=== PATIENT | female | born 1970 | race Caucasian/White ===

== ENCOUNTER 2017-03-25 22:40 | Emergency (ER) | payer MEDICAID, SELFPAY ==
[2017-03-25 22:42] VITALS: BP 135/81; PULSE 65; RESP 18; TEMP 37.3; O2SAT 98; BMI 20.9
--- NOTE | 2017-03-25 23:53 | HMH.EDWNDL ---
ED Disposition Clinical Impression: Laceration Disposition: Home, Self-Care Condition on Discharge: Good Instructions: DI for Laceration Repair Additional Instructions: suture out 8 days and recheck if needed - Critical Care Critical Care Time: No Attestation: On 03/25/17, the high probability of a clinically significant, sudden or life threatening deterioration of the following system(s) required my full and direct attention, intervention and personal management. The time I documented below is in addition to time spent performing reported procedures but includes the following listed in this critical care notation. Medical Decision Making - Medical Records Medical records reviewed: Yes: I reviewed the patient's medical records. Vital Signs: 03/25/17 22:42 Temperature 99.1 F Temperature Source Oral Pulse Rate [Right Radial] 65 Respiratory Rate 18 Blood Pressure [Right Arm] 135/81 Blood Pressure Mean [Right Arm] 99 Blood Pressure Source [Right Arm] Automatic Cuff Blood Pressure Position [Right Arm] Sitting 02 Sat by Pulse Oximetry 98 Oxygen Delivery Method Room Air Orders (Tests/Meds): ED MEDICATIONS Discontinued Medications Generic Name Dose Route Start Last Admin Trade Name Freq PRN Reason Stop Dose Admin Acetaminophen 650 mg 03/25/17 23:40 03/25/17 23:50 Acetaminophen 325mg Tab PO 03/25/17 23:41 650 mg ONCE ONE Administration Tetanus/Reduced Diphtheria/Acell Pertussis 0.5 ml 03/25/17 23:07 03/25/17 23:37 Adacel Tdap 0.5ml Syringe IM 03/25/17 23:08 0.5 ml .ONCE ONE Administration - Dariel Inquiry Pt receiving controlled substance: No Wound/Laceration HPI - General Chief Complaint: Wound/Laceration Stated Complaint: chin laceration Time Seen by Provider: 03/25/17 23:53 Mode of Arrival: Ambulatory Source of Information: Patient, Medical Record Limitations: No Limitations Description of Symptoms (Recalled from ER Triage Doc. by RN): she was at home and tripped, chin lac from hard wood floor, no loss of consciousness - History of Present Illness HPI narrative: fall with chin laceration Onset (ago): hour(s) Location: face Place: home Patient tetanus UTD: No Context: accidental - Related Data Home Medications Medication Instructions Recorded Confirmed No Known Home Medications [No 03/25/17 03/25/17 Known Home Medications] Allergies Allergy/AdvReac Type Severity Reaction Status Date / Time No Known Allergies Allergy Unverified 02/03/17 14:45 [facility] History I have reviewed the patient's past medical history: Yes 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: Denies:: Cancer, Diabetes Mellitus Type 1, Diabetes Mellitus Type 2, MRSA Amputation: No Fractures: Yes (left elbow, ribs, right hand) - *Social History Smoking Status: Current every day smoker Tobacco Type: cigarettes Alcohol Intake: current - Psychiatric History Expresses thoughts of harming self/others: None Suicide Plan Description: No Plan ROS Obtained: Yes All systems reviewed & no additional complaints - Constitutional Constitutional: Denies fever(s) - Eyes Eyes: Denies change in vision - ENT Ears, Nose, Mouth, and Throat: Denies sore throat - Cardiovascular Cardiovascular: Denies chest pain at rest - Respiratory Respiratory: No chest congestion - Gastrointestinal Gastrointestingal: Denies: abdominal pain - Musculoskeletal Musculoskeletal: Denies joint pain, Denies joint swelling - Integumentary/Breasts Skin/Breast: Reports as per HPI, Denies rash - Neurologic Neurologic: Denies tingling/numbness/burning sensations Physical Exam - General General appearance: alert, in no apparent distress - Head Head exam: normocephalic - Eye Eye exam: Present: PERRL, EOMI - ENT ENT exam: Present: mucous membranes moist - Neck Neck exam: Present: trachea midline - Respiratory Respiratory exam: Present: respiratory distress - Cardiovascular Cardiovascular
--- NOTE | 2017-03-25 23:56 | ED_ITS ---
ED Disposition Clinical Impression: Laceration Disposition: Home, Self-Care Condition on Discharge: Good Instructions: DI for Laceration Repair Additional Instructions: suture out 8 days and recheck if needed - Critical Care Critical Care Time: No Attestation: On 03/25/17, the high probability of a clinically significant, sudden or life threatening deterioration of the following system(s) required my full and direct attention, intervention and personal management. The time I documented below is in addition to time spent performing reported procedures but includes the following listed in this critical care notation. Medical Decision Making - Medical Records Medical records reviewed: Yes: I reviewed the patient's medical records. Vital Signs: 03/25/17 22:42 Temperature 99.1 F Temperature Source Oral Pulse Rate [Right Radial] 65 Respiratory Rate 18 Blood Pressure [Right Arm] 135/81 Blood Pressure Mean [Right Arm] 99 Blood Pressure Source [Right Arm] Automatic Cuff Blood Pressure Position [Right Arm] Sitting 02 Sat by Pulse Oximetry 98 Oxygen Delivery Method Room Air Orders (Tests/Meds): ED MEDICATIONS Discontinued Medications Generic Name Dose Route Start Last Admin Trade Name Freq PRN Reason Stop Dose Admin Acetaminophen 650 mg 03/25/17 23:40 03/25/17 23:50 Acetaminophen 325mg Tab PO 03/25/17 23:41 650 mg ONCE ONE Administration Tetanus/Reduced Diphtheria/Acell Pertussis 0.5 ml 03/25/17 23:07 03/25/17 23: 37 Adacel Tdap 0.5ml Syringe IM 03/25/17 23:08 0.5 ml .ONCE ONE Administration - Dariel Inquiry Pt receiving controlled substance: No Wound/Laceration HPI - General Chief Complaint: Wound/Laceration Stated Complaint: chin laceration Time Seen by Provider: 03/25/17 23:53 Mode of Arrival: Ambulatory Source of Information: Patient, Medical Record Limitations: No Limitations Description of Symptoms (Recalled from ER Triage Doc. by RN): she was at home and tripped, chin lac from hard wood floor, no loss of consciousness - History of Present Illness HPI narrative: fall with chin laceration Onset (ago): hour(s) Location: face Place: home Patient tetanus UTD: No Context: accidental - Related Data Home Medications Medication Instructions Recorded Confirmed No Known Home Medications [No 03/25/17 03/25/17 Known Home Medications] Allergies Allergy/AdvReac Type Severity Reaction Status Date / Time No Known Allergies Allergy Unverified 02/03/17 14:45 [facility] History I have reviewed the patient's past medical history: Yes 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: Denies:: Cancer, Diabetes Mellitus Type 1, Diabetes Mellitus Type 2, MRSA Amputation: No Fractures: Yes (left elbow, ribs, right hand) - *Social History Smoking Status: Current every day smoker Tobacco Type: cigarettes Alcohol Intake: current - Psychiatric History Expresses thoughts of harming self/others: None Suicide Plan Description: No Plan ROS Obtained: Yes All systems reviewed & no additional complaints - Constitutional Constitutional: Denies fever(s) - Eyes Eyes: Denies change in vision - ENT Ears, Nose, Mouth, and Throat: Denies sore throat - Cardiovascu
[2017-03-26 00:08] VITALS: BP 128/72; PULSE 85; RESP 18; TEMP 36.9; O2SAT 96
== END 2017-03-26 00:12 | disposition home or self-care (01) ==
PROVIDERS: Emergency Provider Emergency Medicine; Family Provider Internal Medicine Adolescent Medicine
DX: S01.81XA Laceration without foreign body of other part of head, initial encounter (principal); W01.0XXA Fall on same level from slipping, tripping and stumbling without subsequent striking against object, initial encounter; Y92.019 Unspecified place in single-family (private) house as the place of occurrence of the external cause; Z23 Encounter for immunization
CPT/HCPCS: 12011; 90471; 90715; 99291

== ENCOUNTER 2017-04-05 08:21 | Emergency (ER) | payer MEDICAID, SELFPAY ==
[2017-04-05 08:25] VITALS: BP 127/78; PULSE 69; RESP 18; TEMP 36.7; O2SAT 97; BMI 19.5
[2017-04-05 08:39] VITALS: BP 127/84; PULSE 69; RESP 18; TEMP 36.7; O2SAT 97
== END 2017-04-05 08:39 | disposition home or self-care (01) ==
PROVIDERS: Emergency Provider Emergency Medicine; Family Provider Internal Medicine Adolescent Medicine
DX: S02.81XD Fracture of other specified skull and facial bones, right side, subsequent encounter for fracture with routine healing (principal); Z48.02 Encounter for removal of sutures

== ENCOUNTER 2017-04-21 18:38 | Emergency (ER) | payer MEDICAID, SELFPAY ==
[2017-04-21 18:47] VITALS: BP 100/56; PULSE 78; RESP 16; TEMP 36.9; O2SAT 98; BMI 23.0
--- NOTE | 2017-04-21 18:54 | XR_ITS ---
XR hand LT min 3V HISTORY: Pain following injury ITS.REASON: INJURY TO LEFT PINKY AND RING FINGERS ORDERING PHYSICIAN: Saroj Sepulveda MD PATIENT AGE: 47 years COMPARISON: None FINDINGS: No fracture or dislocation. No lytic or blastic change. There is normal mineralization.. The joint spaces are well-preserved. No significant degenerative/arthritic changes. No erosive changes evident.. IMPRESSION: Negative, no acute finding
--- NOTE | 2017-04-21 19:03 | HMH.EDGENADL ---
ED Disposition Clinical Impression: Contusion Qualifiers: Encounter type: initial encounter Contusion area: hand Laterality: left Qualified Code(s): S60.222A - Contusion of left hand, initial encounter Disposition: Home, Self-Care Condition on Discharge: Good Instructions: DI for Contusion Additional Instructions: Please alternate Motrin with Tylenol for pain control, apply an ice pack to the affected area, follow-up with 1 of the orthopedic surgeons listed, Dr. Sage or Dr. Lemus, your earliest convenience. Referrals: Bhavesh Quezada MD [Primary Care Provider] - Jesu Streeter MD [Staff Physician] - Jaquan Sage MD [Staff Physician] - Time of Disposition: 19:04 - Critical Care Critical Care Time: No Attestation: On 04/21/17, the high probability of a clinically significant, sudden or life threatening deterioration of the following system(s) required my full and direct attention, intervention and personal management. The time I documented below is in addition to time spent performing reported procedures but includes the following listed in this critical care notation. Medical Decision Making - Medical Records Medical records reviewed: Yes: I reviewed the patient's medical records. Vital Signs: 04/21/17 18:47 04/21/17 19:21 Temperature 98.4 F 98.0 F Temperature Source Oral Oral Pulse Rate 80 Pulse Rate [Right Brachial] 78 Respiratory Rate 16 16 Blood Pressure 00/00 Blood Pressure [Right Arm] 100/56 Blood Pressure Mean [Right Arm] 70 Blood Pressure Source [Right Arm] Automatic Cuff Blood Pressure Position [Right Arm] Sitting 02 Sat by Pulse Oximetry 98 Oxygen Delivery Method Room Air Room Air Orders (Tests/Meds): ED MEDICATIONS Discontinued Medications Generic Name Dose Route Start Last Admin Trade Name Freq PRN Reason Stop Dose Admin Tramadol HCl 1 richard 04/21/17 19:09 04/21/17 19:20 Ultram Take Home Pack 50mg (10) PO 04/21/17 19:10 1 richard ONCE ONE Administration - Radiology Data #1 Image(s): Finger(s)/Thumb (left 5th finger) Image Reviewed: Yes I reviewed the patient's radiology results, Yes I reviewed the patient's radiology image, Yes I discussed the image results w/the radiologist, Yes I have reviewed radiologist's interpretation [place] [id number] [place] [address] XRay Report Signed Patient: Lilibeth Floyd MR#: [id number] : 1970 Acct:[id number] Age/Sex: 47 / F ADM Date: 04/21/17 Loc: ER Attending Dr: Ordering Physician: Saroj Sepulveda MD Date of Service: 04/21/17 Procedure(s): XR hand LT min 3V Accession Number(s): [id number] cc: Bhavesh Quezada MD; Bart Hussein MD~ XR hand LT min 3V HISTORY: Pain following injury ITS.REASON: INJURY TO LEFT PINKY AND RING FINGERS ORDERING PHYSICIAN: Saroj Sepulveda MD PATIENT AGE: 47 years COMPARISON: None FINDINGS: No fracture or dislocation. No lytic or blastic change. There is normal mineralization.. The joint spaces are well-preserved. No significant degenerative/arthritic changes. No erosive changes evident.. IMPRESSION: Negative, no acute finding Dictated By: Bart Hussein MD Signed By: <Electronically signed by Bart Hussein MD in [place]> 04/22/17722 DD/ 1 - Dariel Inquiry Pt receiving controlled substance: No - Reevaluation(s) Time: 19:00 Reevaluation #1: Instructed patient to alternate Motrin with Tylenol, for pain control, and apply ice packs to the affected area. General Adult HPI - General Chief complaint: PAIN Stated complaint: [id number] @1700 injured left little finger Mode of Arrival: Family Vehicle Limitations: No Limitations Description of Symptoms (Recalled from ER Triage Doc. by RN): C/O PAIN AND EDEMA TO LEFT PINKY AND RING FINGERS. F[place] 1730 - History of Present Illness HPI n
[2017-04-21 19:21] VITALS: BP 00/00; PULSE 80; RESP 16; TEMP 36.7; O2SAT 100
== END 2017-04-21 19:22 | disposition home or self-care (01) ==
PROVIDERS: Emergency Provider Emergency Medicine; Family Provider Internal Medicine Adolescent Medicine; PCP Internal Medicine Adolescent Medicine
DX: S63.617A Unspecified sprain of left little finger, initial encounter (principal); W09.1XXA Fall from playground swing, initial encounter; Y92.830 Public park as the place of occurrence of the external cause
CPT/HCPCS: 73130; 99282

== ENCOUNTER 2019-06-06 15:36 | Emergency (ER) | payer OTHER, SELFPAY ==
[2019-06-06 15:36] VITALS: BP 132/66; PULSE 90; RESP 22; O2SAT 99; BMI 24.5
[2019-06-06 16:06] LABS: Chloride 103 mmol/L (98-107); Sodium 145 mmol/L (136-145)
[2019-06-06 16:07] LABS: Potassium 3.7 mmoL/L (3.5-5.1)
[2019-06-06 16:09] LABS: Alanine Aminotransferase 16 U/L (12-78); Albumin/Globulin Ratio 1.4 (1.1-1.8); Alkaline Phosphatase 83 U/L (38-126); Anion Gap 18.7 mEq/L (5-15); Aspartate Amino Transferase 29 U/L (14-36); Basophils # 0.1 K/mm3 (0-0.2); Basophils % 1.3 % (0.1-2.0); Bilirubin,Total 0.6 mg/dl (0.2-1.3); Blood Urea Nitrogen 16 mg/dl (7-17); Calcium 11.1 mg/dl (8.4-10.2); Carbon Dioxide 27 mmol/L (22.0-30.0); Creatinine Clearance Estimated 75 mL/min (50-200); Eosinophils # 0.1 K/mm3 (0.0-0.4); Eosinophils % 1.3 % (0.1-12.0); Estimated Glomerular Filt Rate 59 ml/min (>60); GFR (African American) 72 ML/MIN (>60); Globulin 3.5 g/dL (1.3-3.2); Glucose 87 mg/dl (74-100); Hematocrit 45.1 % (37.0-47.0); Hemoglobin 14.9 g/dL (12.2-16.2); Lymphocytes # 3.5 K/mm3 (0.7-4.5); Lymphocytes % 44.7 % (10-50); Mean Corpuscular HGB Conc 33.1 g/dL (31.8-35.4); Mean Corpuscular Hemoglobin 29.5 pg (27.0-31.2); Mean Corpuscular Volume 89.3 fl (81-99); Mean Platelet Volume 9.6 fl (7.4-10.4); Monocytes # 0.5 K/mm3 (0.1-1.0); Monocytes % 6.2 % (1.7-9.3); Neutrophils # 3.6 K/mm3 (1.8-7.8); Neutrophils % 46.6 % (37.0-80.0); Platelet Count 238 K/mm3 (142-424); Red Blood Count 5.05 M/mm3 (4.20-5.40); Red Cell Distribution Width 14.5 % (11.5-17.5); Total Protein,Serum 8.5 g/dl (6.3-8.2); White Blood Count 7.8 K/mm3 (4.8-10.8)
[2019-06-06 16:41] VITALS: BP 119/78; PULSE 91; RESP 20; TEMP 36.9; O2SAT 99
--- NOTE | 2019-06-06 17:19 | XR_ITS ---
PROCEDURE: XR CHEST PORTABLE CLINICAL HISTORY: cough COMPARISON: CXR CHEST(2 VIEWS-NOT PORTABLE) from 04/16/2014 CXR CHEST(2 VIEWS-NOT PORTABLE) from 11/19/2016 FINDINGS: The cardiomediastinal silhouette and pulmonary vascularity are within normal limits. The lungs are clear without infiltrates, suspicious nodules, or pleural effusions. No acute bony abnormalities. IMPRESSION: No acute findings. Dictated by: Bart Hussein MD 06/06/2019 20:02 Electronically signed by Bart Hussein MD in [place] 06/06/2019 20:02
[2019-06-06 17:25] VITALS: BP 98/43; PULSE 71; RESP 10; O2SAT 98
--- NOTE | 2019-06-06 17:29 | HMH.EDGENADL ---
ED Disposition Clinical Impression: Panic attack, Hyperventilation, Mood disorder due to known physiological condition, unspecified Disposition: Home, Self-Care Condition on Discharge: Good Instructions: DI for Altered Mental Status Additional Instructions: Please follow-up with your psychiatric nurse practitioner tomorrow morning at 9 AM Prescriptions: Albuterol Sulfate [Albuterol HFA Inhaler] 2 puffs IH Q6HP PRN #1 inh PRN Reason: Shortness Of Breath Or Wheezing Transmission Status: Received by [facility] Referrals: Provider,Referral, [Primary Care Provider] - - Critical Care Critical Care Time: No Attestation: On 06/06/19, the high probability of a clinically significant, sudden or life threatening deterioration of the following system(s) required my full and direct attention, intervention and personal management. The time I documented below is in addition to time spent performing reported procedures but includes the following listed in this critical care notation. Medical Decision Making - Medical Records Medical records reviewed: Yes: I reviewed the patient's medical records. - Dariel Inquiry Pt receiving controlled substance: No Vital Signs: 06/06/19 15:36 06/06/19 16:41 06/06/19 17:25 Temperature 98.4 F Temperature Source Oral Pulse Rate Pulse Rate [Radial] 90 91 H 71 Respiratory Rate 22 20 10 L Blood Pressure Blood Pressure [Right Arm] 132/66 119/78 98/43 L Blood Pressure Mean [Right Arm] 88 91 61 Blood Pressure Source [Right Arm] Automatic Cuff Blood Pressure Position [Right Arm] Sitting Sitting 02 Sat by Pulse Oximetry 99 99 98 Oxygen Delivery Method Room Air Room Air 06/06/19 20:12 Temperature 98.4 F Temperature Source Pulse Rate 72 Pulse Rate [Radial] Respiratory Rate 14 Blood Pressure 112/54 L Blood Pressure [Right Arm] Blood Pressure Mean [Right Arm] Blood Pressure Source [Right Arm] Blood Pressure Position [Right Arm] 02 Sat by Pulse Oximetry Oxygen Delivery Method Room Air - Lab Data Lab results reviewed: Yes: I reviewed the patient's lab results. Lab Results 06/06/19 15:45: WBC 7.8, RBC 5.05, Hgb 14.9, Hct 45.1, MCV 89.3, MCH 29.5, MCHC 33.1, RDW 14.5, Plt Count 238, MPV 9.6, Neut % (Auto) 46.6, Lymph % (Auto) 44.7, Emanuel % (Auto) 6.2, Eos % (Auto) 1.3, Baso % (Auto) 1.3, Neut # (Auto) 3.6, Lymph # (Auto) 3.5, Emanuel # (Auto) 0.5, Eos # (Auto) 0.1, Baso # (Auto) 0.1 06/06/19 15:45: Sodium 145, Potassium 3.7, Chloride 103, Carbon Dioxide 27, Anion Gap 18.7 H, BUN 16, Creatinine 1.00, Estimated Creat Clear 75, Estimated GFR 59, Est GFR ( Amer) 72, Glucose 87, Calcium 11.1 H, Total Bilirubin 0.6, AST 29, ALT 16, Alkaline Phosphatase 83, Total Protein 8.5 H, Albumin 5.0, Globulin 3.5 H, Albumin/Globulin Ratio 1.4 06/06/19 15:45: Salicylates < 1.0 L, Acetaminophen < 10 L Result diagrams: 06/06/19 15:45 06/06/19 15:45 Orders (Tests/Meds): ED MEDICATIONS Discontinued Medications Generic Name Dose Route Start Last Admin Trade Name Freq PRN Reason Stop Dose Admin Haloperidol Lactate 5 mg 06/06/19 15:51 06/06/19 15:52 Haldol 5mg/Ml Vial IM 06/06/19 15:52 5 mg ONCE ONE Administration Lorazepam 2 mg 06/06/19 15:51 06/06/19 15:52 Ativan 2mg/Ml Vial IV 06/06/19 15:52 2 mg ONCE ONE Administration Sodium Chloride 10 ml 06/06/19 15:51 06/06/19 15:52 Sodium Chloride 0.9% 10ml Vial IV 07/06/19 15:50 10 ml NEEDED PRN Administration to Dilute Lorazepam inj Medical Decision Narrative: I spoke to the patient's psychiatric nurse practitioner and she is agreed to see the patient for medication adjustment tomorrow morning at 9 AM. General Adult HPI - General Chief complaint: Altered Mental Status Stated complaint: nerves Time Seen by Provider: 06/06/19 17:00 Mode of Arrival: Ambulatory Source of Information: Patient, Spouse, Relative, Medical Record Limitations: No Limitations Descripti
--- NOTE | 2019-06-06 17:37 | ECG_ITS ---
APPROVED REPORT Exam: Resting ECG HR:64 bpm ECG Measurements Heart Rate 64 AXES LA 136 P 40 QRSd 72 QRS 39 QT 426 T 28 QTc 439 <Conclusion> Normal sinus rhythm Normal ECG Electronically signed by : Gary Sotomayor, 06/07/2019 15:38:31
[2019-06-06 17:42] LABS: Acetaminophen < 10 ug/ml (10-30); Salicylate < 1.0 mg/dL (2.0-20.0)
[2019-06-06 20:12] VITALS: BP 112/54; PULSE 72; RESP 14; TEMP 36.9; O2SAT 96
== END 2019-06-06 20:16 | disposition home or self-care (01) ==
PROVIDERS: Emergency Provider Family Medicine
DX: F41.0 Panic disorder [episodic paroxysmal anxiety] (principal); F06.30 Mood disorder due to known physiological condition, unspecified; F12.10 Cannabis abuse, uncomplicated; F17.210 Nicotine dependence, cigarettes, uncomplicated; Z79.899 Other long term (current) drug therapy
CPT/HCPCS: 71045; 80053; 80329; 85025; 93005; 96372; 96374; 99284

== ENCOUNTER 2019-10-07 13:32 | Emergency (ER) | payer OTHER, SELFPAY ==
[2019-10-07 13:40] VITALS: BP 00/00; PULSE 0; RESP 0; TEMP -17.7; TEMP 0
== END 2019-10-07 13:41 | disposition left against medical advice (07) ==
LOC: UTC 13:37
PROVIDERS: Emergency Provider Nurse Practitioner
DX: Z53.21 Procedure and treatment not carried out due to patient leaving prior to being seen by health care provider (principal)

== ENCOUNTER 2019-10-08 06:54 | Emergency (ER) | payer OTHER, SELFPAY ==
[2019-10-08 06:56] VITALS: BP 127/68; PULSE 59; RESP 18; TEMP 36.8; O2SAT 98; BMI 27.3
--- NOTE | 2019-10-08 07:14 | XR_ITS ---
PROCEDURE: XR FINGER LT MIN 2V CLINICAL INDICATION: middle finger injury Posttraumatic pain COMPARISON: No exams were available for comparison FINDINGS: No fracture or dislocation. No lytic or blastic change. There is normal mineralization. The joint spaces are well-preserved. No significant degenerative/arthritic changes. No erosive changes evident. Other findings:None. IMPRESSION: No acute findings. Dictated by: Bart Hussein MD 10/08/2019 08:24 Bart Hussein MD in [place] 10/08/2019 08:24
[2019-10-08 07:32] VITALS: BP 124/77; PULSE 53; O2SAT 98
--- NOTE | 2019-10-08 08:03 | PC.NURSE ---
pt tAKEN TO XRAY
--- NOTE | 2019-10-08 08:03 | HMH.EDGENADL ---
ED Disposition Clinical Impression: Finger sprain Qualifiers: Encounter type: initial encounter Finger: middle finger Sprain of finger site: interphalangeal joint Laterality: left Qualified Code(s): S63.633A - Sprain of interphalangeal joint of left middle finger, initial encounter Contusion Qualifiers: Encounter type: initial encounter Contusion area: finger Finger: middle finger Damage to nail status: without damage Laterality: left Qualified Code(s): S60.032A - Contusion of left middle finger without damage to nail, initial encounter Disposition: Home, Self-Care Condition on Discharge: Good Instructions: Finger Sprain Referrals: PCP,No [Primary Care Provider] - Time of Disposition: 08:45 - Critical Care Critical Care Time: No Attestation: On 10/08/19, the high probability of a clinically significant, sudden or life threatening deterioration of the following system(s) required my full and direct attention, intervention and personal management. The time I documented below is in addition to time spent performing reported procedures but includes the following listed in this critical care notation. Medical Decision Making - Medical Records Medical records reviewed: Yes: I reviewed the patient's medical records. - Dariel Inquiry Pt receiving controlled substance: No Vital Signs: 10/08/19 06:56 10/08/19 07:32 10/08/19 08:53 Temperature 98.2 F 98.2 F Temperature Source Oral Pulse Rate 80 Pulse Rate [Right Radial] 59 L 53 L Respiratory Rate 18 17 Blood Pressure 122/85 Blood Pressure [Right Arm] 127/68 124/77 Blood Pressure Mean [Right Arm] 87 92 Blood Pressure Source [Right Arm] Automatic Cuff Automatic Cuff Blood Pressure Position [Right Arm] Sitting Sitting 02 Sat by Pulse Oximetry 98 98 Oxygen Delivery Method Room Air Room Air Orders (Tests/Meds): ED MEDICATIONS Discontinued Medications Generic Name Dose Route Start Last Admin Trade Name Freq PRN Reason Stop Dose Admin Tetanus/Reduced Diphtheria/Acell Pertussis 0.5 ml 10/08/19 08:04 10/08/19 08:27 Adacel Tdap 0.5ml Syringe IM 10/08/19 08:05 0.5 ml .ONCE ONE Administration Medical Decision Narrative: 49-year-old [id number] female presenting to the emergency department with a traumatic injury to the middle finger of the left hand. X-rays obtained. Tetanus updated. X-rays show no fracture or dislocation. Abrasions irrigated, no foreign body identified. No laceration requiring repair. Patient placed into a wilmer splint. Recommended to take Tylenol and ibuprofen for pain. Keep the wound clean and dry. May wash with hot soapy water today. Given return precautions for new or worsening symptoms, signs of infection. General Adult HPI - General Chief complaint: Wound/Laceration Stated complaint: AO 10/07/19 13:00 Injury left middle finger Time Seen by Provider: 10/08/19 08:04 Mode of Arrival: Ambulatory Source of Information: Patient Limitations: No Limitations Description of Symptoms (Recalled from ER Triage Doc. by RN): Smashed left middle finger hanging a door yesterday. Went to [facility] but was not seen stating she had to finish the job she was doing - History of Present Illness HPI narrative: 49-year-old [id number] female presenting to the emergency department with an injury to the middle finger of her left hand. 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 She had immediate pain over her middle phalanx. Had difficulty flexing and extending. This morning when she woke up she had increased swelling. Has not taken Tylenol or Motrin for pain. No pain in her hand. No pain in other fingers. She has a small abrasion over the dorsal aspect of her finger. No injuries to the nail. Does not know her most recent tetanus - Related Data Previous Rx's Medication Instructions Recorded Pantoprazole Sodium [Protonix 40mg 40 mg PO HS 3
--- NOTE | 2019-10-08 08:07 | PC.NURSE ---
PT BACK FROM XRAY
[2019-10-08 08:53] VITALS: BP 122/85; PULSE 80; RESP 17; TEMP 36.8; O2SAT 100
== END 2019-10-08 08:54 | disposition home or self-care (01) ==
PROVIDERS: Emergency Provider Emergency Medicine
DX: S63.633A Sprain of interphalangeal joint of left middle finger, initial encounter (principal); S60.032A Contusion of left middle finger without damage to nail, initial encounter; W23.0XXA Caught, crushed, jammed, or pinched between moving objects, initial encounter; Y92.89 Other specified places as the place of occurrence of the external cause; F17.210 Nicotine dependence, cigarettes, uncomplicated; Z23 Encounter for immunization
CPT/HCPCS: 29130; 73140; 90471; 90715; 99283

== ENCOUNTER 2020-03-13 12:10 | Emergency (ER) | payer OTHER, SELFPAY ==
[2020-03-13 12:11] VITALS: BP 156/107; PULSE 72; RESP 20; TEMP 37.1; O2SAT 99; BMI 23.0
[2020-03-13 12:50] VITALS: BP 168/92; PULSE 64; O2SAT 97
--- NOTE | 2020-03-13 13:00 | HMH.EDGENADL ---
ED Disposition Clinical Impression: Acute psychosis Disposition: Home, Self-Care Condition on Discharge: Good Instructions: DI for Psychosis Additional Instructions: Haldol as prescribed by Georgia Gregorio. Follow-up with Georgia Gregorio in her office on Thursday at 11:30 AM. Referrals: Bhavesh Diaz MD [Primary Care Provider] - - Critical Care Critical Care Time: No Attestation: On 03/13/20, the high probability of a clinically significant, sudden or life threatening deterioration of the following system(s) required my full and direct attention, intervention and personal management. The time I documented below is in addition to time spent performing reported procedures but includes the following listed in this critical care notation. Medical Decision Making - Dariel Inquiry Pt receiving controlled substance: Yes Dariel was queried for this patient: No Reason not queried -: Emergent pt cond-no time Risks and benefits of using a controlled substance: were not discussed with pt by me Vital Signs: 03/13/20 12:11 03/13/20 12:50 Temperature 98.7 F Temperature Source Oral Pulse Rate [Right Radial] 72 64 Respiratory Rate 20 Blood Pressure [Right Arm] 156/107 H 168/92 H Blood Pressure Mean [Right Arm] 123 117 Blood Pressure Source [Right Arm] Automatic Cuff Automatic Cuff Blood Pressure Position [Right Arm] Sitting Sitting 02 Sat by Pulse Oximetry 99 97 Oxygen Delivery Method Room Air Room Air Orders (Tests/Meds): ED MEDICATIONS Discontinued Medications Generic Name Dose Route Start Last Admin Trade Name Freq PRN Reason Stop Dose Admin Haloperidol Lactate 5 mg 03/13/20 12:16 03/13/20 12:25 Haloperidol Lactate 5 Mg/Ml Vial IM 03/13/20 12:17 5 mg ONCE ONE Administration Lorazepam 2 mg 03/13/20 12:16 03/13/20 12:25 Lorazepam 2mg/Ml Vial IM 03/13/20 12:17 2 mg ONCE ONE Administration - Reevaluation(s) Time: 13:13 Reevaluation #1: Patient states she is already feeling better after her injection. She is calm and cooperative and oriented. She has eaten in the emergency department. General Adult HPI - General Chief complaint: Anxiety Stated complaint: psychosis Time Seen by Provider: 03/13/20 13:00 Mode of Arrival: Ambulatory Limitations: No Limitations Description of Symptoms (Recalled from ER Triage Doc. by RN): Pt brought from YAKOV Winkler office r/t psychosis. YAKOV Winkler reports pt has been off of her medications, medication (Seroquel 200 mg qhs) started back 1 week ago. Pt was following up today r/t medication restart today. Pt brought to ED r/t pt is tearful, anxious, states she has a man's voice in her head telling her what to do. Pt states the man's voice is getting stronger and she feels like he is taking over. Pt denies SI. Per YAKOV Winkler pt had a similar episode approx 1 year ago r/t being off of her medications, states pt was seen in ED at that time, was medicated with haldol and ativan and was better and d/c'd home. - History of Present Illness HPI narrative: Brought over by Georgia Gregorio, psychiatric nurse practitioner, from her office where the patient had an outpatient appointment. She found her to be frankly psychotic. She has a history of same. The patient admits to stopping her medicines in May or June. She says she stopped them because she starts to feel better and does not feel like she needs them. She complains of auditory hallucinations, voices. She denies suicidal ideation. She agrees to restart her medications and agrees to outpatient follow-up, but has apparently declined inpatient treatment. Georgia Gregorio says that the last time this happened, the patient was in the emergency room and was treated with intramuscular Haldol and Ativan and got better and was discharged. She requests the same treatment today and says that she will come see the patient after treatment and prescribe her outpatient medications and arrange follow-up.
--- NOTE | 2020-03-13 15:02 | PC.NURSE ---
ESTEPHANIE HERE SEEING PT , SHE SAYS SHE IS GOOD TO GO HOME SHE IS GONNA SEND IN HALDOL 1MG BID AND SEROQUEL TO TAKE AT BEDTIME ONLY , COME SEE ESTEPHANIE ON THURSDAY @1130. PT IS COMING TO PICK HER UP
[2020-03-13 15:41] VITALS: BP 110/65; PULSE 78; RESP 16; TEMP 36.9; O2SAT 98
== END 2020-03-13 15:54 | disposition home or self-care (01) ==
PROVIDERS: Emergency Provider Emergency Medicine; PCP Family Medicine
DX: F23 Brief psychotic disorder (principal); F17.210 Nicotine dependence, cigarettes, uncomplicated
CPT/HCPCS: 96372; 99282

== ENCOUNTER 2020-06-22 10:00 | Outpatient (RCR) | payer OTHER, SELFPAY ==
--- NOTE | 2020-05-31 10:43 | HMH.PTOPEV ---
PT Outpatient Evaluation Rehab PT Outpatient Evaluation Start: 05/31/20 10:22 Freq: Status: Active Protocol: Document 05/31/20 10:22 MARCO (Rec: 05/31/20 10:43 MARCO [id number]) Electronically Signed By Foster Brooks, PT 05/31/20 10:22 Outpatient Therapy Subjective History Subjective History Pt reports multiple falls ' this winter', x3, with injury to head and neck . Pt reports most severe fall occurred on ice, slipped, whiplash inury to neck, reports L>R sided neck pain since Mar. Pt reports chronic neck pain, stiffness, intermittent ' cracking', referred pain into L SH blade area, and into L ear area. Chief Complaint Pain,Stiff Symptom Type Ache,Sharp,Dull,Shooting Symptoms Relieved By Rest/Positioning,Heat,Ice Symptoms Aggravated By Physical Activity,Twisting, Lifting Prior Functional Limitations Reaching,Lifting,Housework, Driving Current Functional Limitations Reaching,Lifting,Housework, Driving Symptom Description Constant but Variable Level of pain today (0-10) 4 Pain scale - at its best (0-10) 4 Pain scale - at its worst (0-10) 10 Cervical Eval Palpation Cervical Muscles L Cervical Paraspinal,L Suboccipital,R CT Junction,L CT Junction,R Upper Trapezius, L Upper Trapezius Cervical/Thoracic Palpation Findings Tenderness,Trigger Point, Muscle Guarding Posture Head/C-Spine Posture Sitting Position Flexed Head/C-Spine Posture Standing Position Flexed Flexibility Deficits Upper Trapezius Muscle Length (R) Moderate Tightness,(L) Moderate Tightness Levaetor Scapulae Muscle Length (R) Moderate Tightness,(L) Moderate Tightness Scalene Group Muscle Length (R) Moderate Tightness,(L) Moderate Tightness Passive Joint Mobility Cervical PIVM Dec: R OA L OA R AA L AA R C2/3 L C2/3 R C3/4 L C3/4 R C4/5 L C4/5
== END 2020-06-22 10:05 | disposition home or self-care (01) ==
LOC: PT 10:00
PROVIDERS: Visit Provider Family Medicine
DX: M54.2 Cervicalgia (principal)
CPT/HCPCS: 20560; 97010; 97014; 97035; 97110; 97163; G0283

== ENCOUNTER → 2020-11-06 10:13 | Outpatient (CLI) | payer OTHER, SELFPAY | PROVIDERS: PCP Family Medicine; Visit Provider Nurse Practitioner | DX: Z20.822 Contact with and (suspected) exposure to COVID-19 (principal) | CPT/HCPCS: C9803; U0003; U0005 ==

== ENCOUNTER 2020-12-20 12:03 | Emergency (ER) | payer OTHER, SELFPAY ==
--- NOTE | 2020-12-20 12:03 | ECG_ITS ---
APPROVED REPORT Exam: Resting ECG HR:51 bpm ECG Measurements Heart Rate 51 AXES [place] 138 P 48 QRSd 78 QRS 62 QT 434 T 49 QTc 400 Conclusion Sinus bradycardia Otherwise normal ECG Electronically signed by : Bhavesh Quezada MD 12/21/2020 22:39:00
[2020-12-20 12:04] VITALS: BP 126/73; PULSE 50; RESP 24; TEMP 36.8; O2SAT 100; BMI 22.4
--- NOTE | 2020-12-20 12:25 | XR_ITS ---
PROCEDURE: XR CHEST 2V CLINICAL HISTORY: CP COMPARISON: CR CXR CHEST(2 VIEWS-NOT PORTABLE) from 04/16/2014 DX CXR CHEST(2 VIEWS-NOT PORTABLE) from 11/19/2016 CR XR CHEST PORTABLE from 06/06/2019 FINDINGS: The cardiomediastinal silhouette and pulmonary vascularity are within normal limits. The lungs are clear without infiltrates, suspicious nodules, or pleural effusions. No acute bony abnormalities. IMPRESSION: No acute findings. Dictated by: Bart Hussein MD 12/20/2020 13:47 Bart Hussein MD in [place] 12/20/2020 13:47
[2020-12-20 12:30] VITALS: BP 123/71; PULSE 45; RESP 18; O2SAT 99
[2020-12-20 12:33] LABS: Chloride 106 mmol/L (98-107); Sodium 140 mmol/L (136-145)
[2020-12-20 12:34] LABS: Basophils % 0.6 % (0.1-2.0); Eosinophils # 0.2 K/mm3 (0.0-0.4); Hematocrit 47.5 % (37.0-47.0); Hemoglobin 15.8 g/dL (12.2-16.2); Lymphocytes # 2.2 K/mm3 (0.7-4.5); Lymphocytes % 31.9 % (10-50); Mean Corpuscular HGB Conc 33.4 g/dL (31.8-35.4); Mean Corpuscular Hemoglobin 31.2 pg (27.0-31.2); Mean Corpuscular Volume 93.5 fl (81-99); Mean Platelet Volume 9.2 fl (7.4-10.4); Monocytes # 0.3 K/mm3 (0.1-1.0); Monocytes % 4.5 % (1.7-9.3); Neutrophils # 4.2 K/mm3 (1.8-7.8); Neutrophils % 60.1 % (37.0-80.0); Platelet Count 223 K/mm3 (142-424); Potassium 4.3 mmoL/L (3.5-5.1); Red Blood Count 5.08 M/mm3 (4.20-5.40); Red Cell Distribution Width 13.6 % (11.5-17.5); White Blood Count 6.9 K/mm3 (4.8-10.8)
[2020-12-20 12:36] LABS: Blood Urea Nitrogen 11 mg/dl (7-17); Creatinine Clearance Estimated 94 mL/min (50-200); Estimated Glomerular Filt Rate 89 ml/min (>60); GFR (African American) 108 ML/MIN (>60)
[2020-12-20 12:37] LABS: Anion Gap 11.3 mEq/L (5-15); Calcium 10.1 mg/dl (8.4-10.2); Carbon Dioxide 27 mmol/L (22.0-30.0); Glucose 95 mg/dl (74-100)
--- NOTE | 2020-12-20 12:37 | PC.NURSE ---
PT TO RAD
[2020-12-20 12:50] LABS: Troponin I < 0.01 ng/ml (0.00-0.034)
[2020-12-20 13:01] VITALS: PULSE 49; PULSE 51; O2SAT 100
[2020-12-20 13:31] VITALS: BP 145/75; PULSE 50; RESP 18; O2SAT 98
[2020-12-20 14:01] VITALS: BP 135/54; PULSE 66; RESP 16; O2SAT 99
--- NOTE | 2020-12-20 14:36 | HMH.EDCP ---
ED Disposition Clinical Impression: Chest pain Qualifiers: Chest pain type: chest pain on breathing Qualified Code(s): R07.1 - Chest pain on breathing Disposition: Home, Self-Care Condition on Discharge: Fair Additional Instructions: Follow up with your doctor to have further evaluation of your heart, I spoke with him on the phone but you will need to call to make the appointment. He is aware of what happened today. Prescriptions: hydrOXYzine pamoate [Vistaril 25mg capsule] 25 mg PO Q6H PRN #20 cap PRN Reason: Anxiety Transmission Status: Received by [facility] Referrals: Provider,Referral, [Primary Care Provider] - - Critical Care Critical Care Time: No Attestation: On 12/20/20, the high probability of a clinically significant, sudden or life threatening deterioration of the following system(s) required my full and direct attention, intervention and personal management. The time I documented below is in addition to time spent performing reported procedures but includes the following listed in this critical care notation. Medical Decision Making - Medical Records Medical records reviewed: Yes: I reviewed the patient's medical records. - Dariel Inquiry Pt receiving controlled substance: No Vital Signs: 12/20/20 12:04 12/20/20 12:30 12/20/20 13:01 Temperature 98.2 F Temperature Source Oral Pulse Rate 45 L 49 L Pulse Rate [Right Radial] 50 L Respiratory Rate 24 18 Blood Pressure 123/71 Blood Pressure [Right Arm] 126/73 Blood Pressure Mean 89 Blood Pressure Mean [Right Arm] 90 Blood Pressure Source Blood Pressure Source [Right Arm] Automatic Cuff Blood Pressure Position Blood Pressure Position [Right Arm] Sitting 02 Sat by Pulse Oximetry 100 99 100 Oxygen Delivery Method Room Air Room Air 12/20/20 13:31 12/20/20 14:01 12/20/20 15:17 Temperature 98.2 F Temperature Source Pulse Rate 50 L 66 66 Pulse Rate [Right Radial] Respiratory Rate 18 16 16 Blood Pressure 145/75 H 135/54 L 135/54 L Blood Pressure [Right Arm] Blood Pressure Mean 98 81 Blood Pressure Mean [Right Arm] Blood Pressure Source Automatic Cuff Blood Pressure Source [Right Arm] Blood Pressure Position Sitting Blood Pressure Position [Right Arm] 02 Sat by Pulse Oximetry 98 99 Oxygen Delivery Method - Lab Data Lab Results 12/20/20 12:14: WBC 6.9, RBC 5.08, Hgb 15.8, Hct 47.5 H, MCV 93.5, MCH 31.2, MCHC 33.4, RDW 13.6, Plt Count 223, MPV 9.2, Neut % (Auto) 60.1, Lymph % (Auto) 31.9, [place] % (Auto) 4.5, Eos % (Auto) 3.0, Baso % (Auto) 0.6, Neut # (Auto) 4.2, Lymph # (Auto) 2.2, [place] # (Auto) 0.3, Eos # (Auto) 0.2, Baso # (Auto) 0.0 12/20/20 12:14: Sodium 140, Potassium 4.3, Chloride 106, Carbon Dioxide 27, Anion Gap 11.3, BUN 11, Creatinine 0.70, Estimated Creat Clear 94, Estimated GFR 89, Est GFR ( Amer) 108, Glucose 95, Calcium 10.1, Troponin I < 0.01 Result diagrams: 12/20/20 12:14 12/20/20 12:14 Orders (Tests/Meds): ED MEDICATIONS Discontinued Medications Generic Name Dose Route Start Last Admin Trade Name Freq PRN Reason Stop Dose Admin Albuterol Sulfate 2 puffs 12/20/20 14:56 Albuterol-Hfa 90mcg/Puff Inhaler 8gm 01/19/21 14:55 Q6HP PRN Shortness Of Breath Albuterol/Ipratropium 3 ml 12/20/20 13:00 12/20/20 13:01 Ipratropium/Albuterol 3 Ml Neb 12/20/20 13:01 3 ml ONCE ONE Administration Hydroxyzine Pamoate 25 mg 12/20/20 14:49 12/20/20 15:12 Hydroxyzine Pamoate 25mg Capsule PO 01/19/21 14:48 25 mg Q6HP PRN Administration Itching Miscellaneous 1 unit 12/20/20 14:56 Aerochamber/Optihaler MC 12/20/20 14:57 ONCE ONE Medical Decision Narrative: Patient is a 50-year-old female presented emerged department chief complaint of chest pain chest pressure and chronic shortness of air. Differential diagnosis in the patient includes ACS, symptomatic bradycardia, COPD exacerbation, static p
--- NOTE | 2020-12-20 15:12 | PC.NURSE ---
RESP CALLED FOR INHALER
[2020-12-20 15:17] VITALS: BP 135/54; PULSE 66; RESP 16; TEMP 36.8; O2SAT 99
== END 2020-12-20 15:18 | disposition home or self-care (01) ==
PROVIDERS: Emergency Provider Emergency Medicine
DX: R07.9 Chest pain, unspecified (principal); F17.210 Nicotine dependence, cigarettes, uncomplicated; Z79.899 Other long term (current) drug therapy
CPT/HCPCS: 71046; 80048; 84484; 85025; 93005; 99283

== ENCOUNTER 2021-01-04 09:50 | Emergency (ER) | payer OTHER, SELFPAY ==
[2021-01-04 09:51] VITALS: BP 140/96; PULSE 55; RESP 18; TEMP 37; O2SAT 96; BMI 25.7; BMI 26.4
--- NOTE | 2021-01-04 10:03 | ECG_ITS ---
APPROVED REPORT Exam: Resting ECG HR:43 bpm ECG Measurements Heart Rate 43 AXES [place] 138 P -1 QRSd 78 QRS 26 QT 444 T 29 QTc 375 Conclusion Marked sinus bradycardia Abnormal ECG Electronically signed by : Bhavesh Quezada MD 01/05/2021 19:30:23
--- NOTE | 2021-01-04 10:18 | XR_ITS ---
PROCEDURE: XR CHEST PORTABLE CLINICAL HISTORY: chest pain COMPARISON: DX CXR CHEST(2 VIEWS-NOT PORTABLE) from 11/19/2016 CR XR CHEST PORTABLE from 06/06/2019 CR XR CHEST 2V from 12/20/2020 FINDINGS: The cardiomediastinal silhouette and pulmonary vascularity are within normal limits. The lungs are clear without infiltrates, suspicious nodules, or pleural effusions. Calcified granuloma right midlung. No acute bony findings. IMPRESSION: No acute findings. Dictated by: Bart Hussein MD 01/04/2021 12:15 Bart Hussein MD in [place] 01/04/2021 12:15
[2021-01-04 10:26] LABS: Basophils # 0.1 K/mm3 (0-0.2); Eosinophils # 0.3 K/mm3 (0.0-0.4); Eosinophils % 3.7 % (0.1-12.0); Hematocrit 42.6 % (37.0-47.0); Hemoglobin 14.7 g/dL (12.2-16.2); Lymphocytes # 2.4 K/mm3 (0.7-4.5); Lymphocytes % 32.9 % (10-50); Mean Corpuscular HGB Conc 34.6 g/dL (31.8-35.4); Mean Corpuscular Hemoglobin 31.3 pg (27.0-31.2); Mean Corpuscular Volume 90.5 fl (81-99); Mean Platelet Volume 9.6 fl (7.4-10.4); Monocytes # 0.3 K/mm3 (0.1-1.0); Monocytes % 3.8 % (1.7-9.3); Neutrophils # 4.3 K/mm3 (1.8-7.8); Neutrophils % 58.7 % (37.0-80.0); Platelet Count 234 K/mm3 (142-424); Red Cell Distribution Width 14.2 % (11.5-17.5); White Blood Count 7.2 K/mm3 (4.8-10.8)
[2021-01-04 10:31] LABS: Anion Gap 13.2 mEq/L (5-15); Blood Urea Nitrogen 13 mg/dl (7-17); Calcium 10.1 mg/dl (8.4-10.2); Carbon Dioxide 28 mmol/L (22.0-30.0); Chloride 105 mmol/L (98-107); Creatinine Clearance Estimated 80 mL/min (50-200); Estimated Glomerular Filt Rate 76 ml/min (>60); GFR (African American) 92 ML/MIN (>60); Glucose 87 mg/dl (74-100); Potassium 4.2 mmoL/L (3.5-5.1); Sodium 142 mmol/L (136-145)
--- NOTE | 2021-01-04 10:53 | HMH.EDGENADL ---
ED Disposition Clinical Impression: Anxiety state Dyspnea Qualifiers: Dyspnea type: unspecified Qualified Code(s): R06.00 - Dyspnea, unspecified Acute bronchitis Qualifiers: Bronchitis organism: unspecified organism Qualified Code(s): J20.9 - Acute bronchitis, unspecified Disposition: Home, Self-Care Condition on Discharge: Good Instructions: DI for Chronic Obstructive Pulmonary Disease, DI for Acute Bronchitis, DI for Shortness of Breath Additional Instructions: Follow-up with your primary care provider, call for appointment. Additional instructions for SHORTNESS OF BREATH: See your physician as soon as possible for further evaluation. Return immediately if worsening shortness of breath or if vomiting, chest pain, fever, coughing of blood, or passing out. Prescriptions: predniSONE [Prednisone 20mg Tab] 20 mg PO BID #10 tab Transmission Status: Pending to [facility] Azithromycin [Zithromax 250mg tab] 250 mg PO DIRECTED #6 tab Transmission Status: Pending to [facility] Referrals: Bhavesh Diaz MD [Primary Care Provider] - - Critical Care Critical Care Time: No Attestation: On 01/04/21, the high probability of a clinically significant, sudden or life threatening deterioration of the following system(s) required my full and direct attention, intervention and personal management. The time I documented below is in addition to time spent performing reported procedures but includes the following listed in this critical care notation. Medical Decision Making - Medical Records Medical records reviewed: Yes: I reviewed the patient's medical records. MR Comment: Reviewed emergency department visit note from 12/20/2020. Presented with chest pain. Work-up negative. Discharged on hydroxyzine for anxiety. - Dariel Inquiry Pt receiving controlled substance: No Vital Signs: 01/04/21 09:51 Temperature 98.6 F Temperature Source Oral Pulse Rate [Radial] 55 L Respiratory Rate 18 Blood Pressure [Right Arm] 140/96 H Blood Pressure Mean [Right Arm] 110 Blood Pressure Position [Right Arm] Sitting 02 Sat by Pulse Oximetry 96 Oxygen Delivery Method Room Air - Lab Data Lab Results 01/04/21 10:10: WBC 7.2, RBC 4.70, Hgb 14.7, Hct 42.6, MCV 90.5, MCH 31.3 H, MCHC 34.6, RDW 14.2, Plt Count 234, MPV 9.6, Neut % (Auto) 58.7, Lymph % (Auto) 32.9, [place] % (Auto) 3.8, Eos % (Auto) 3.7, Baso % (Auto) 1.0, Neut # (Auto) 4.3, Lymph # (Auto) 2.4, [place] # (Auto) 0.3, Eos # (Auto) 0.3, Baso # (Auto) 0.1 01/04/21 10:10: Sodium 142, Potassium 4.2, Chloride 105, Carbon Dioxide 28, Anion Gap 13.2, BUN 13, Creatinine 0.80, Estimated Creat Clear 80, Estimated GFR 76, Est GFR ( Amer) 92, Glucose 87, Calcium 10.1, Troponin I < 0.01 Result diagrams: 01/04/21 10:10 01/04/21 10:10 Orders (Tests/Meds): ED MEDICATIONS Discontinued Medications Generic Name Dose Route Start Last Admin Trade Name Freq PRN Reason Stop Dose Admin Albuterol/Ipratropium 3 ml 01/04/21 11:09 Ipratropium/Albuterol 3 Ml Neb IH 01/04/21 11:10 ONCE ONE ORDERS Category Date Time Status Chest XR -- portable [XR chest portable] Stat Exams 01/04/21 10:18 Taken Troponin I Q3H Lab 01/04/21 13:30 Ordered Troponin I Q3H Lab 01/04/21 16:30 Ordered - Radiology Data #1 Image(s): Chest Image Reviewed: Yes I reviewed the patient's radiology image Preliminary Findings: Normal/NAD - ECG Data Tracing #1 EKG interpreted by Tarik Flores MD: Rhythm: sinus bradycardia Rate: 43 [place]: normal Ectopy: none Conduction: normal ST Segment Changes: none T Wave Changes: none Q Waves: none No evidence of acute ischemia or injury Medical Decision Narrative: PULMONARY EMBOLISM RULE-OUT CRITERIA: 1. Age > 49? No 2. Pulse greater than 99/min? No 3. Room air pulse ox <95%? No 4. Hemoptysis? No 5. On estrogen? No 6. Prior diagnosis of DVT or PE? No 7. Surgery or trauma requiring en
[2021-01-04 10:54] LABS: Troponin I < 0.01 ng/ml (0.00-0.034)
[2021-01-04 11:29] VITALS: BP 132/87; PULSE 48; RESP 16; TEMP 37; O2SAT 97
== END 2021-01-04 11:32 | disposition home or self-care (01) ==
PROVIDERS: Emergency Provider Emergency Medicine; PCP Family Medicine
DX: J20.9 Acute bronchitis, unspecified (principal); F41.1 Generalized anxiety disorder; F17.210 Nicotine dependence, cigarettes, uncomplicated
CPT/HCPCS: 36415; 71045; 80048; 84484; 85025; 93005; 99283

== ENCOUNTER → 2021-01-07 15:53 | Outpatient (CLI) | payer OTHER, SELFPAY ==
[2021-01-07 16:48] LABS: D-Dimer 0.53 ug/mL (0.0-0.5)
[2021-01-07 17:38] LABS: NT Pro Brain Natriuretic Pep. 338 pg/mL (0-125)
== END ==
PROVIDERS: Visit Provider Nurse Practitioner Family
DX: R06.02 Shortness of breath (principal)
CPT/HCPCS: 36415; 83880; 85378

== ENCOUNTER → 2021-01-22 10:27 | Outpatient (CLI) | payer OTHER, SELFPAY | PROVIDERS: PCP Family Medicine; Visit Provider Urology | DX: R06.00 Dyspnea, unspecified (principal); R07.9 Chest pain, unspecified; R00.2 Palpitations; I34.1 Nonrheumatic mitral (valve) prolapse; R00.1 Bradycardia, unspecified; R53.83 Other fatigue; R94.31 Abnormal electrocardiogram [ECG] [EKG]; Z72.0 Tobacco use | CPT/HCPCS: 93270 ==

== ENCOUNTER → 2021-01-25 13:56 | Outpatient (CLI) | payer OTHER, SELFPAY ==
--- NOTE | 2021-01-25 13:57 | CA_ITS ---
APPROVED REPORT EXAM: Comprehensive 2D, Doppler, and color-flow Echocardiogram Home Security Professional: Lennie Silva RVT Ht: 5 ft 0 in Wt: 126lbs BSA: 1.53 BP: 97/36 mmHg Indications: CP,SOA,COPD,SMOKER,PALPS,TIM, HX MVP,HX OVARIAN CA,ABN EKG 2D Dimensions LVOT 2.08 cm (M/F) 1.5-2.5 LA Volume 6.40 mL LA Volume Index 4.18 mL/m2 (M/F) 16-34 M-Mode Dimensions RVDd 1.63 cm (0.9-2.6) LA Diam 2.11 cm (1.9-4.0) LVDd 3.72 cm (3.5-5.7) Ao Diam 2.32 cm (2.0-3.7) LVDs 2.66 cm (3.5-5.7) IVSd 0.91 cm (0.6-1.1) PWd 0.72 cm (0.6-1.1) EF (Teich) 62.60% FS 33.30% EDV (Teich) 69.60 mL TAPSE 2.17 (<1.7) ESV (Teich) 26.00 mL LV Diastology E Decel Time 230.00 (160-240 msec) E/A Ratio 1.2 MED E' 7.60 (< 7 cm/sec) E'/MED E' Ratio 9.37 (>14) LAT E' 11.10 (<10 cm/sec) E/LAT E' Ratio 6.41 (>14) Mitral Valve MV E Max Marlon. 71.00 (40-130 cm/s) MV A Velocity 60.00 (40-130 cm/s) E/A Ratio 1.18 MV Decel. Time 230.00 (160-240 ms) MV PHT 67.00 ms Pulmonary Valve PV Peak Velocity 79.00 (50-150 cm/s) Left Ventricle Left atrium normal size, left ventricle is normal size, there is no concentric left ventricular hypertrophy, visually estimated ejection fraction 55% with no regional wall motion abnormality, diastolic parameters are within normal range. Right Ventricle Right atrium and right ventricle are normal size and contractility. Aortic Valve Aortic valve is minimally thickened and fibrosed, there is no aortic stenosis or aortic insufficiency. Mitral Valve Mitral valve grossly normal, there is trace mitral regurgitation. Tricuspid Valve Tricuspid valve grossly normal, there is trace tricuspid regurgitation, tricuspid regurgitation jet velocity is inadequate for calculation of the right ventricle is systolic function. Pulmonic valve is poorly visualized. Pulmonic Valve Pulmonic valve is poorly visualized. Great Vessels Aortic root is normal size. Inferior vena cava is normal size with normal inspiratory collapse. Pericardium No significant pericardial effusion noted. Conclusion 1. Normal left ventricular size, preserved left ventricular systolic function, visually estimated ejection fraction 55% with no regional wall motion abnormality, diastolic parameters are within normal range. 2. Trace mitral and tricuspid regurgitation. 3. No significant pericardial effusion noted. 4. Inferior vena cava is normal size with normal inspiratory collapse. Electronically signed by : Edwin Campos MD 01/25/2021 16:09:59
--- NOTE | 2021-01-25 13:57 | CA_ITS ---
APPROVED REPORT Exam: Exercise Treadmill Technologist: Phoebe Echols, Ht: 5 ft 0 in Wt: 126 lbs BSA: 1.53 m2 HR: 52 bpm BP: 132/73 mmHg Rhythm: NSR WITH INF STT ABNORMALITIES 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: Diabetes Medications: Gabapentin,,,,, Buspirone,,,,, Albuterol,,,,, ETODOLAC,,,,, Potassium,,,,, Furosemide,,,,, Allergies: No known drug allergies Cardiac Risk Factors: Diabetes, Smoking 1PPD Stress Test Details Test: Lars, Exercise stress testing was performed using a Lars protocol. HR Resting HR: 79 bpm Max Heart Rate (APMHR): 171.496830 bpm Max HR Achieved: 116 bpm Target HR (85% APMHR): 145.393629 bpm % of APMHR: 67.84 Recovery HR: 113 bpm BP Resting BP: 132/73 mmHg Max BP: 150/80 mmHg Recovery BP: 155.0/75.0 mmHg ECG Resting ECG: NSR WITH INF STT ABNORMALITIES Clinical Reason for Termination: Dyspnea Exercise duration: 06:48 min Highest Stage Achieved: Exercise capacity: 7.0 METs Stress ECG Conclusion TEST ABORTED DUE TO SOA. MAX HR 166BPM. EXACERBATION OF BASELINE EKGS. NON-DIAGNOSTIC. INCOMPLETE. Test Summary REST . . . . . . . Sitting REST 04:51 0.0 1.2 79 . 132/ 73 . . Stage 1 01:00 10.0 1.7 77 . . . . Stage 1 02:00 10.0 1.7 83 . . . . Stage 1 03:00 10.0 1.7 81 . . . . Stage 2 01:00 12.0 2.5 99 . 145/ 88 . . Stage 2 02:00 12.0 2.5 91 . 145/ 88 . . Stage 2 03:00 12.0 2.5 96 . 150/ 80 . . Stage 3 00:48 14.0 3.4 108 . . . Stop exercise at 06:48 RECOVERY 01:00 0.0 0.0 109 . . . . RECOVERY 02:00 0.0 0.0 90 . . . . RECOVERY 03:00 0.0 0.0 82 . . . . RECOVERY 04:00 0.0 0.0 77 . . . . RECOVERY 05:00 0.0 0.0 78 . . . . RECOVERY 06:00 0.0 0.0 70 . . . . RECOVERY 07:00 0.0 0.0 67 . . . . RECOVERY 07:43 0.0 0.0 72 . . . . Electronically signed by : Edwin Campos MD 01/25/2021 15:39:55
== END ==
PROVIDERS: PCP Family Medicine; Visit Provider Urology
DX: R06.00 Dyspnea, unspecified (principal); R07.9 Chest pain, unspecified; I34.1 Nonrheumatic mitral (valve) prolapse; R00.1 Bradycardia, unspecified; R00.2 Palpitations; R53.83 Other fatigue; R94.31 Abnormal electrocardiogram [ECG] [EKG]; Z72.0 Tobacco use
CPT/HCPCS: 93017; 93306

== ENCOUNTER → 2021-06-05 10:58 | Outpatient (CLI) | payer MEDICAID, SELFPAY ==
--- NOTE | 2021-06-05 11:04 | CT_ITS ---
FINAL REPORT TECHNIQUE: Axial images were obtained from the lung apex to the mid abdomen by computed tomography. Coronal reformatted images were obtained. This study was performed with techniques to keep radiation doses as low as reasonably achievable, (ALARA). Individualized dose reduction techniques using automated exposure control or adjustment of mA and/or kV according to the patient''s size were employed. CLINICAL HISTORY: SOA, 40 pack yr tobacco use FINDINGS: There is no axillary adenopathy. There is no hilar or mediastinal adenopathy. Heart size is normal. There is no pericardial or pleural effusion. Limited images of the upper abdomen are unremarkable. A 4 mm nodule is seen in the left lower lobe on image 51. There is a 4 mm pleural base nodule in the left lower lobe on image 64. There is mild scarring. There is a calcified granuloma in the right middle lobe. IMPRESSION: 4 mm left lower lobe nodules. Reviewed, Interpreted and Dictated by Rick Wisdom III, MD Transcribed by Rylan Omalley Authenticated by Rick Wisdom III, MD on 06/05/2021 04:25:01 PM [facility]
--- NOTE | 2021-06-05 11:04 | NM_ITS ---
APPROVED REPORT Exam: Nuclear Stress Test Indication: TOB USER, C.P., SOB, PALPATATIONS Patient Location: Outpatient Stress Tech: Karina Mancini [place] Tech:LORRIE Graves RT (R)(N)(M) Ht: 5 ft 0 in Wt: 126 lbs Bra Size: A HR: 46 bpm BP: 130/53 mmHg BSA: 1.53 m2 History: TOB USER, C.P., SOB, PALPATATIONS Procedure: Patient received a 0.4 mg of intravenous Lexiscan, resting heart rate 46 bpm, resting blood pressure 130/53 mmHg, with Lexiscan maximum heart rate achived was 72 bpm which is Less than 85 % of the maximum predicted heart rate and blood pressure was 128/63 mmHg. With Lexiscan, patient denied any complaint of chest pain. Electrocardiogram Resting electrocardiogram shows sinus rhythm nonspecific ST-T changes, with Lexiscan there is less than 1.[address] segment depression noted from the baseline EKG. The EKG portion of the Lexiscan is nondiagnostic. Cardiac Stress and Resting SPECT Images: Cardiac Stress and Resting SPECT images were obtained using technetium 99m Myoview 31.0 mCi stress and 10.68 mCi at rest. Gated SPECT analysis of segmental wall motion and calculation of the ejection fraction also done. Prone images were also obtained. Cardiac stress no SPECT images show uniform myocardial activity without segmental perfusion abnormality, computer derived ejection fraction is 57% with no regional wall motion abnormality, right ventricle is normal size and contractility. Conclusion: 1. The EKG portion of the Lexiscan is nondiagnostic. 2. No scintigraphic evidence of reversible ischemia seen, computer derived ejection fraction is 57% with no regional wall motion abnormality, right ventricle is normal size and contractility. 3. Normal Lexiscan Myoview study. Electronically signed by : Edwin Campos MD 06/05/2021 20:38:13
--- NOTE | 2021-06-05 13:55 | CA_ITS ---
APPROVED REPORT Exam: Pharmacologic Technologist: Karina Mancini, Ht: 5 ft 0 in Wt: 129 lbs BSA: 1.55 m2 HR: 51 bpm BP: 130/53 mmHg Indications: SOB, CP 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 Medications: Gabapentin,,,,, Albuterol,,,,, Stress Test Details Test: LEXISCAN HR Resting HR: 46 bpm Max Heart Rate (APMHR): 170.215706 bpm Max HR Achieved: 80 bpm Target HR (85% APMHR): 144.436351 bpm % of APMHR: 47.06 Recovery HR: 55 bpm BP Resting BP: 130/53 mmHg Max BP: 130/53 mmHg Recovery BP: 127.0/57.0 mmHg ECG Resting ECG: Sinus lizz, rightward axis, slow R wave progression Clinical Exercise duration: 04:01 min Highest Stage Achieved: Stress ECG Conclusion Symptoms: SOA, mild nausea. No CP. Arrhythmias/Ectopy: None. ST-T Changes: No signigicant changes. Conclusion: Unremarkable Lexiscan stress. Myoview images reported separately. Test Summary RECOVERY 03:32 . . 59 . 127/ 57 . . Stage 1 01:00 . . 67 . . . . Stage 2 01:00 . . 71 . 125/ 53 . . Stage 3 01:00 . . 69 . 123/ 55 . . Stage 4 01:00 . . 70 . 128/ 63 . . Stage 4 01:01 . . 72 . 128/ 63 . Stop exercise at 04:01 RECOVERY 01:00 . . 68 . . . . RECOVERY 02:00 . . 65 . . . . RECOVERY 03:00 . . 64 . . . . RECOVERY 03:32 . . 59 . 127/ 57 . . Electronically signed by : Edwin Campos MD 06/05/2021 20:35:37
== END ==
PROVIDERS: PCP Internal Medicine; Visit Provider Internal Medicine
DX: R06.00 Dyspnea, unspecified (principal); R07.89 Other chest pain; R00.2 Palpitations; R55 Syncope and collapse; Z72.0 Tobacco use
CPT/HCPCS: 71250; 78452; 93017; A9502; J2785

== ENCOUNTER 2021-10-14 22:14 | Emergency (ER) | payer MEDICAID, SELFPAY ==
[2021-10-14 22:51] VITALS: BP 0/0; PULSE 0; RESP 0; TEMP -17.7; TEMP 0; O2SAT 0
== END 2021-10-14 22:52 | disposition left against medical advice (07) ==
LOC: ER 22:51
PROVIDERS: Emergency Provider Emergency Medicine; PCP Physician Assistant
DX: J02.9 Acute pharyngitis, unspecified (principal); R05.9 Cough, unspecified; R50.9 Fever, unspecified; Z53.21 Procedure and treatment not carried out due to patient leaving prior to being seen by health care provider

== ENCOUNTER 2021-12-10 06:56 | Emergency (ER) | payer MEDICAID, SELFPAY ==
[2021-12-10 06:57] VITALS: BP 122/73; PULSE 61; RESP 20; O2SAT 99; BMI 23.4
--- NOTE | 2021-12-10 07:04 | XR_ITS ---
FINAL REPORT CLINICAL HISTORY: Acute cough FINDINGS: A single view of the chest was obtained. The heart is normal in size. The mediastinum is unremarkable. The lungs are clear. There is no pleural effusion. There is no pneumothorax. There is no acute osseous abnormality. IMPRESSION: No acute cardiopulmonary process. Reviewed, Interpreted and Dictated by Rick Wisdom III, MD Transcribed by Georgia Ram Authenticated and [facility]
--- NOTE | 2021-12-10 07:11 | HMH.EDGENADL ---
Discharge Plan Disposition Patient Disposition: Home, Self-Care Condition: Good Prescriptions Prescriptions: New prednisone 20 mg tablet 40 mg PO DAILY 5 Days Qty: 10 0RF azithromycin 250 mg tablet 250 mg PO DAILY Qty: 6 0RF Rx Instructions: 500 mg p.o. on day 1, 250 mg orally for 4 days after; No Action gabapentin 100 mg capsule 200 mg PO DAILY albuterol sulfate 90 mcg/actuation HFA aerosol inhaler 2 puff INHALATION Q6HP PRN (Reason: Shortness Of Breath Or Wheezing) Qty: 1 0RF Referrals Follow up/Referrals: Provider,Referral, MD [Primary Care Provider] - See instructions Clinical Impressions Clinical Impression: COPD exacerbation Instructions Patient Instructions: DI for Chronic Obstructive Pulmonary Disease, DI for Atypical Pneumonia Discharge ED Provider: Lynda Jarvis Adult HPI General Chief complaint: Upper Respiratory Infection Stated complaint: Cough Time Seen by Provider: 12/10/21 07:02 Mode of Arrival: Ambulatory Source of Information: Patient Limitations: No Limitations History of Present Illness HPI narrative: 51-year-old female presenting to the emergency department with cough. Cough started on Thursday, 6 days ago. It was initially intermittent and dry. Now it is constant, wet, hacking, productive of yellowish sputum. Cough is worse at night. She was unable to sleep last night. Has been taking [id number] emergency. No other medications. She is suffers from COPD. Uses inhalers. No recent antibiotics or steroids. Continues to smoke tobacco. No headache, chest pain, abdominal pain, nausea, vomiting. No particular shortness of breath. Sick contacts include grandchildren. Related Data Home Medications Medication Instructions Recorded Confirmed gabapentin 100 mg capsule 200 mg PO DAILY 01/22/21 05/29/21 Previous Rx's Medication Instructions Recorded albuterol sulfate 90 mcg/actuation 2 puff inhalation Q6HP PRN 05/15/21 aerosol inhaler Shortness Of Breath Or Wheezing #1 g azithromycin 250 mg tablet 250 mg PO DAILY #6 tabs 12/10/21 prednisone 20 mg tablet 40 mg PO DAILY 5 days #10 tabs 12/10/21 Allergies Allergy/AdvReac Type Severity Reaction Status Date / Time No Known Allergies Allergy Verified 12/10/21 07:13 [facility] 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 (Updated 12/10/21 @ 07:59 by Lynda Jarvis DO) Chest pain COPD (chronic obstructive pulmonary disease) Palpitations Syncope Surgical History (Updated 12/10/21 @ 07:17 by Celina Carlin RN) H/O: hysterectomy Social History Smoking Status: Current every day smoker tobacco type: cigarettes packs per day: 1 second hand exposure: Yes alcohol intake: never substance use type: marijuana current occupational status: employed Travel in the last 8 weeks: [place] the [place] housing[place] house number of children: 3 ROS Obtained: Yes All systems reviewed & no additional complaints except as documented Constitutional Constitutional: Reports body ache, Denies chills, Denies fever(s) and Denies headache(s) ENT Ears, Nose, Mouth, and Throat: Denies dizziness, Denies headache(s), Reports nasal congestion, Denies neck pain, Reports sinus pressure and Denies sore throat Cardiovascular Cardiovascular: Denies chest pain and Denies dyspnea Respiratory Respiratory: Reports cough, Denies dyspnea and Denies wheezing Gastrointestinal Gastrointestingal: Denies abdominal pain, nausea or vomiting Musculoskeletal Musculoskeletal: Denies myalgias and Denies neck pain Integumentary/Breasts Skin/Breast: Denies redness and Denies rash Neurologic Neurologic: Denies dizziness and Denies headache(s) Allergic/Immunologic Allergic/Immunologic: Denies wheezing Physical Exam General General appearance: alert and in no apparent distress Head Head exam: atraumatic and normocephalic ENT ENT exam: Present normal exam and mucous membranes
[2021-12-10 08:24] VITALS: BP 125/76; PULSE 65; RESP 18; TEMP 36.7; O2SAT 98
[2021-12-10 08:28] LABS: Coronavirus 19, PCR Not Detected (NotDetected); Influenza A, PCR Not Detected (NotDetected); Influenza B, PCR Not Detected (NotDetected)
== END 2021-12-10 08:27 | disposition home or self-care (01) ==
PROVIDERS: Emergency Provider Emergency Medicine
DX: J44.1 Chronic obstructive pulmonary disease with (acute) exacerbation (principal); Z79.899 Other long term (current) drug therapy; Z72.0 Tobacco use
CPT/HCPCS: 71045; 99283; C9803; U0003; U0005

== ENCOUNTER 2021-12-10 22:25 | Emergency (ER) | payer MEDICAID, SELFPAY ==
[2021-12-10 22:27] VITALS: BP 144/101; PULSE 60; RESP 16; TEMP 36.9; O2SAT 98; BMI 23.4
[2021-12-10 23:12] LABS: Microscopic, Urine URINE MICROSCOPIC (MICROSCOPIC)
[2021-12-10 23:20] VITALS: BP 136/70; PULSE 52; RESP 18; O2SAT 98
[2021-12-10 23:27] LABS: Chloride 104 mmol/L (98-107); Potassium 3.4 mmoL/L (3.5-5.1); Sodium 143 mmol/L (136-145)
[2021-12-10 23:29] LABS: Blood Urea Nitrogen 11 mg/dl (7-17); Creatinine Clearance Estimated 83 mL/min (50-200); Estimated Glomerular Filt Rate 89 ml/min (>60); GFR (African American) 107 ML/MIN (>60)
--- NOTE | 2021-12-10 23:29 | PC.NURSE ---
Pt arrived agitated. I addressed the pts questions about the nausea the medication caused. pt is now content and resting
[2021-12-10 23:30] LABS: Alanine Aminotransferase 14 U/L (12-78); Albumin Level 4.7 g/dl (3.5-5.0); Albumin/Globulin Ratio 1.5 (1.1-1.8); Alkaline Phosphatase 103 U/L (38-126); Anion Gap 14.4 mEq/L (5-15); Aspartate Amino Transferase 25 U/L (14-36); Bilirubin,Total 0.5 mg/dl (0.2-1.3); Calcium 9.5 mg/dl (8.4-10.2); Carbon Dioxide 28 mmol/L (22.0-30.0); Globulin 3.1 g/dL (1.3-3.2); Glucose 88 mg/dl (74-100); Total Protein,Serum 7.8 g/dl (6.3-8.2)
[2021-12-10 23:31] VITALS: BP 131/42; PULSE 52; RESP 18; O2SAT 98
[2021-12-10 23:41] LABS: Appearance,Urine CLEAR (Clear); Bilirubin,Urine Negative (Negative); Blood, Urine Negative (Negative); Color,Urine YELLOW (Yellow); Glucose,Urine (UA) Negative (Negative); Ketones,Urine Negative (Negative); Leukocyte Esterase,Urine TRACE (Negative); Nitrate,Urine Negative (Negative); Protein,Urine TRACE (Negative); Specific Gravity, Urine 1.025 (1.005-1.030)
[2021-12-10 23:52] LABS: Basophils # 0.1 K/mm3 (0-0.2); Basophils % 0.7 % (0.1-2.0); Eosinophils % 0.6 % (0.1-12.0); Hematocrit 45.6 % (37.0-47.0); Hemoglobin 14.7 g/dL (12.2-16.2); Lymphocytes # 1.7 K/mm3 (0.7-4.5); Lymphocytes % 22.8 % (10-50); Mean Corpuscular HGB Conc 32.2 g/dL (31.8-35.4); Mean Corpuscular Volume 93.2 fl (81-99); Mean Platelet Volume 9.7 fl (7.4-10.4); Monocytes # 0.3 K/mm3 (0.1-1.0); Monocytes % 4.2 % (1.7-9.3); Neutrophils # 5.3 K/mm3 (1.8-7.8); Neutrophils % 71.7 % (37.0-80.0); Platelet Count 193 K/mm3 (142-424); Red Blood Count 4.89 M/mm3 (4.20-5.40); Red Cell Distribution Width 13.7 % (11.5-17.5); White Blood Count 7.4 K/mm3 (4.8-10.8)
[2021-12-11 00:01] VITALS: BP 112/74; PULSE 52; RESP 18; O2SAT 98
--- NOTE | 2021-12-11 00:20 | HMH.EDNVD ---
Discharge Plan Disposition Patient Disposition: Home, Self-Care Prescriptions Prescriptions: New ondansetron HCl 4 mg Tablet 4 mg PO Q8H PRN (Reason: Nausea) Qty: 4 12RF levofloxacin 500 mg tablet 500 mg PO DAILY Qty: 7 0RF No Action gabapentin 100 mg capsule 200 mg PO DAILY albuterol sulfate 90 mcg/actuation HFA aerosol inhaler 2 puff INHALATION Q6HP PRN (Reason: Shortness Of Breath Or Wheezing) Qty: 1 0RF prednisone 20 mg tablet 40 mg PO DAILY 5 Days Qty: 10 0RF azithromycin 250 mg tablet 250 mg PO DAILY Qty: 6 0RF Rx Instructions: 500 mg p.o. on day 1, 250 mg orally for 4 days after; Referrals Follow up/Referrals: Phil Khalil MD [Primary Care Provider] - See instructions Clinical Impressions Clinical Impression: Adverse drug effect, Acute bronchitis Instructions Patient Instructions: DI for Nausea -- Adult Discharge ED Provider: Phil Khalil Nausea/Vomiting/Diarrhea HPI General Chief complaint: Nausea/Vomiting/Diarrhea Stated complaint: Abd Pain and vomiting Time Seen by Provider: 12/11/21 00:20 Mode of Arrival: Ambulatory Source of Information: Patient and Medical Record Limitations: No Limitations Description of Symptoms (Recalled from ER Triage Doc. by RN): pt states she was seen in er and diagnosed with pnemonia and [facility]. after starting medications pt has begun vomitting History of Present Illness HPI Narrative: recent dx of cap but unable to justa meds - has vomiting complaint: vomiting Onset (ago): hour(s) Associated Abdominal Pain: No Severity: moderate Associated symptoms: denies other symptoms Related Data Home Medications Medication Instructions Recorded Confirmed gabapentin 100 mg capsule 200 mg PO DAILY 01/22/21 05/29/21 Previous Rx's Medication Instructions Recorded albuterol sulfate 90 mcg/actuation 2 puff inhalation Q6HP PRN 05/15/21 aerosol inhaler Shortness Of Breath Or Wheezing #1 g azithromycin 250 mg tablet 250 mg PO DAILY #6 tabs 12/10/21 prednisone 20 mg tablet 40 mg PO DAILY 5 days #10 tabs 12/10/21 levofloxacin 500 mg tablet 500 mg PO DAILY #7 tabs 12/11/21 ondansetron HCl 4 mg tablet 4 mg PO Q8H PRN Nausea #4 tabs 12/11/21 Allergies Allergy/AdvReac Type Severity Reaction Status Date / Time No Known Allergies Allergy Verified 12/10/21 07:13 PFSH PFS 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 (Updated 12/11/21 @ 00:29 by Phil Khalil MD) Chest pain COPD (chronic obstructive pulmonary disease) Palpitations Syncope Surgical History (Updated 12/10/21 @ 07:17 by Celina Carlin RN) H/O: hysterectomy Social History Smoking Status: Current every day smoker tobacco type: cigarettes packs per day: 1 second hand exposure: Yes alcohol intake: never substance use type: marijuana current occupational status: employed Travel in the last 8 weeks: [place] the [place] housing[place] house number of children: 3 ROS Obtained: Yes All systems reviewed & no additional complaints except as documented Physical Exam General General appearance: alert Head Head exam: normocephalic Eye Eye exam: Present PERRL and EOMI ENT ENT exam: Present mucous membranes moist Neck Neck exam: Present trachea midline Respiratory Respiratory exam: Present wheezes; Absent respiratory distress Cardiovascular Cardiovascular exam: Present regular rate Abdominal Exam Abdominal exam: Present soft; Absent tenderness Extremities Exam Extremities exam: Present full ROM Neurological Exam Neurological exam: Present alert, oriented X3 and CN II-XII intact; Absent motor sensory deficit Psychiatric Psychiatric exam: Present normal affect Skin Skin exam: Absent rash Medical Decision Making Medical Records Medical records reviewed: Yes I reviewed the patient's medical records. Dariel Inquiry Pt receiving controlled substance: No Vital Signs:
[2021-12-11 00:24] LABS: Bacteria,Urine Trace /lpf
[2021-12-11 00:30] VITALS: BP 131/105; PULSE 56; RESP 18; O2SAT 99
[2021-12-11 00:40] VITALS: BP 130/80; PULSE 58; RESP 18; TEMP 36.6; O2SAT 99
== END 2021-12-11 00:48 | disposition home or self-care (01) ==
PROVIDERS: Emergency Provider Emergency Medicine; PCP Emergency Medicine
DX: T50.905A Adverse effect of unspecified drugs, medicaments and biological substances, initial encounter (principal); J20.9 Acute bronchitis, unspecified; Z79.899 Other long term (current) drug therapy; J44.9 Chronic obstructive pulmonary disease, unspecified
CPT/HCPCS: 80053; 81001; 85025; 94640; 96365; 96375; 99284; J2405

== ENCOUNTER 2022-01-21 18:46 | Emergency (ER) | payer MEDICAID, SELFPAY ==
[2022-01-21 18:55] VITALS: BMI 23.4
--- NOTE | 2022-01-21 18:56 | CT_ITS ---
PROCEDURE INFORMATION: Exam: CT Head Without Contrast Exam date and time: 01/21/2022 7:18 PM Age: 51 years old Clinical indication: Injury or trauma; Fall; Blunt trauma (contusions or hematomas) TECHNIQUE: Imaging protocol: Computed tomography of the head without contrast. Radiation optimization: All CT scans at this facility use at least one of these dose optimization techniques: automated exposure control; mA and/or kV adjustment per patient size (includes targeted exams where dose is matched to clinical indication); or iterative reconstruction. COMPARISON: HEADWO CT head/brain wo con 12/04/2017 5:47 PM FINDINGS: Brain: No evidence of acute parenchymal hemorrhage, extra-axial collection or local regional mass effect. Cerebral ventricles: The ventricles, sulci and cisterns are normal in size and configuration. No hydrocephalus or midline structure shift Pituitary gland and sella: Sellar/parasellar structures, orbits and craniocervical junction are unremarkable Paranasal sinuses: Visualized sinuses are unremarkable. No fluid levels. Mastoid air cells: Visualized mastoid air cells are well aerated. Bones/joints: No calvarial fracture Soft tissues: Unremarkable. IMPRESSION: No acute intracranial abnormality. No calvarial fracture.
--- NOTE | 2022-01-21 18:56 | CT_ITS ---
PROCEDURE INFORMATION: Exam: CT Cervical Spine Without Contrast Exam date and time: 01/21/2022 7:20 PM Age: 51 years old Clinical indication: Injury or trauma; Fall; Blunt trauma TECHNIQUE: Imaging protocol: Computed tomography of the cervical spine without contrast. Radiation optimization: All CT scans at this facility use at least one of these dose optimization techniques: automated exposure control; mA and/or kV adjustment per patient size (includes targeted exams where dose is matched to clinical indication); or iterative reconstruction. COMPARISON: CT HEAD/BRAIN WO CON 01/21/2022 7:18 PM FINDINGS: Bones/joints: Vertebral alignment is maintained. There is preservation of vertebral body heights. Facet joints are well aligned. Odontoid process is intact. Atlantoaxial interval is maintained. No acute fracture. No osseous encroachment of the spinal canal. Mild to moderate bilateral neural foraminal C5-C6 level. Prevertebral and paravertebral soft tissues are unremarkable. Lungs: Lung apices are normal. Soft tissues: See Bones/joints finding. IMPRESSION: No acute fracture. No traumatic subluxation.
--- NOTE | 2022-01-21 18:58 | XR_ITS ---
PROCEDURE INFORMATION: Exam: XR Pelvis Exam date and time: 01/21/2022 7:35 PM Age: 51 years old Clinical indication: Injury or trauma; Fall; Blunt trauma (contusions or hematomas); Bilateral; Pelvic region TECHNIQUE: Imaging protocol: Radiologic exam of the pelvis. Views: 1 or 2 view. COMPARISON: CT ABDOMEN PELVIS WO CON 03/30/2019 12:55 PM FINDINGS: Bones/joints: No visible fracture or dislocation. Soft tissues: Unremarkable. IMPRESSION: No visible fracture or dislocation.
[2022-01-21 19:07] VITALS: BP 157/86; PULSE 64; RESP 20; TEMP 37; O2SAT 99; BMI 23.4
[2022-01-21 19:22] LABS: Basophils # 0.1 K/mm3 (0-0.2); Basophils % 1.3 % (0.1-2.0); Eosinophils # 0.2 K/mm3 (0.0-0.4); Eosinophils % 2.2 % (0.1-12.0); Hematocrit 41.9 % (37.0-47.0); Hemoglobin 14.2 g/dL (12.2-16.2); Lymphocytes # 2.5 K/mm3 (0.7-4.5); Lymphocytes % 35.1 % (10-50); Mean Corpuscular Hemoglobin 30.4 pg (27.0-31.2); Mean Corpuscular Volume 89.4 fl (81-99); Mean Platelet Volume 9.3 fl (7.4-10.4); Monocytes # 0.4 K/mm3 (0.1-1.0); Monocytes % 5.6 % (1.7-9.3); Neutrophils % 55.7 % (37.0-80.0); Platelet Count 237 K/mm3 (142-424); Red Blood Count 4.69 M/mm3 (4.20-5.40); Red Cell Distribution Width 13.7 % (11.5-17.5); White Blood Count 7.2 K/mm3 (4.8-10.8)
[2022-01-21 19:40] LABS: Anion Gap 9.3 mEq/L (5-15); Blood Urea Nitrogen 27 mg/dl (7-17); Calcium 9.7 mg/dl (8.4-10.2); Carbon Dioxide 26 mmol/L (22.0-30.0); Chloride 105 mmol/L (98-107); Creatinine Clearance Estimated 53 mL/min (50-200); Estimated Glomerular Filt Rate 53 ml/min (>60); GFR (African American) 64 ML/MIN (>60); Glucose 100 mg/dl (74-100); Potassium 4.3 mmoL/L (3.5-5.1); Sodium 136 mmol/L (136-145)
[2022-01-21 20:09] LABS: Troponin I < 0.01 ng/ml (0.00-0.034)
[2022-01-21 20:13] VITALS: BP 105/68; PULSE 60; RESP 18; TEMP 36.8; O2SAT 97
--- NOTE | 2022-01-29 09:31 | HMH.EDGENADL ---
Discharge Plan Disposition Patient Disposition: Home, Self-Care Condition: Good Prescriptions Prescriptions: No Action gabapentin 100 mg capsule 200 mg PO DAILY albuterol sulfate 90 mcg/actuation HFA aerosol inhaler 2 puff INHALATION Q6HP PRN (Reason: Shortness Of Breath Or Wheezing) Qty: 1 0RF ondansetron HCl 4 mg Tablet 4 mg PO Q8H PRN (Reason: Nausea) Qty: 4 12RF levofloxacin 500 mg tablet 500 mg PO DAILY Qty: 7 0RF prednisone 20 mg tablet 40 mg PO DAILY 5 Days Qty: 10 0RF azithromycin 250 mg tablet 250 mg PO DAILY Qty: 6 0RF Rx Instructions: 500 mg p.o. on day 1, 250 mg orally for 4 days after; Referrals Follow up/Referrals: Provider,MD Verito [Primary Care Provider] - See instructions Bhavesh Quezada MD [Staff Physician] - See instructions Activity Restrictions/Add. Instructions Additional Instructions/Restrictions: Follow up with primary care physician in 1-2 days. Return to ED if symptoms reoccur. Please take tylenol and ibuprofen for pain control. Please avoid driving or doing any other activities that may cause harm to yourself or other if you were to pass out. Clinical Impressions Clinical Impression: Fall Instructions Patient Instructions: How to Prevent Falls, Dizziness, Nonvertigo Print Language Print Language: Georgian Discharge ED Provider: Mirna Hunt Adult HPI General Chief complaint: Dizziness Stated complaint: fell from counter 1810; arm and head pain Time Seen by Provider: 01/21/22 19:00 Mode of Arrival: Ambulatory Source of Information: Patient Limitations: No Limitations Description of Symptoms (Recalled from ER Triage Doc. by RN): pt to ed c/o dizziness and fall. pt states she was on the counter reaching in the top counter, got dizzy and fell off the counter. pt reports not remembering the episode. pt is c/o pain to the left arm, lower back and c/o headache. History of Present Illness HPI narrative: Miss Floyd is a 51 yo female PMH for substance abuse presenting to the ED for fall. Patient reports she was standing on countertop and got dizzy which she describes as lightheaded causing her to fall off countertop striking her head against ground. Pateint reports approximately 3ft off the ground. She reports she does not remember the event but her grandchildren found her on the floor. She reports mild pain to her left arm and lower back w/ mild headache. complaint: fall , presyncope Related Data Home Medications Medication Instructions Recorded Confirmed gabapentin 100 mg capsule 200 mg PO DAILY 01/22/21 05/29/21 Previous Rx's Medication Instructions Recorded albuterol sulfate 90 mcg/actuation 2 puff inhalation Q6HP PRN 05/15/21 aerosol inhaler Shortness Of Breath Or Wheezing #1 g azithromycin 250 mg tablet 250 mg PO DAILY #6 tabs 12/10/21 prednisone 20 mg tablet 40 mg PO DAILY 5 days #10 tabs 12/10/21 levofloxacin 500 mg tablet 500 mg PO DAILY #7 tabs 12/11/21 ondansetron HCl 4 mg tablet 4 mg PO Q8H PRN Nausea #4 tabs 12/11/21 Allergies Allergy/AdvReac Type Severity Reaction Status Date / Time No Known Allergies Allergy Verified 12/10/21 07:13 [facility] Disclaimer: The information contained in this section may have been updated after the patient was seen, as this information can be updated by other users. 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 (Updated 01/21/22 @ 20:07 by Mirna Hunt MD) Chest pain COPD (chronic obstructive pulmonary disease) Palpitations Syncope Surgical History H/O: hysterectomy Social History Smoking Status: Current every day smoker tobacco type: cigarettes packs per day: 1 second hand exposure: Yes alcohol intake: never substance use type: marijuana current occupational status: employed Travel in the last 8 weeks: [place] the [place] housing[place] house number of children: 3
== END 2022-01-21 20:26 | disposition home or self-care (01) ==
PROVIDERS: Emergency Provider Student in an Organized Health Care Education/Training Program
DX: R55 Syncope and collapse (principal); M54.50 Low back pain, unspecified; M79.602 Pain in left arm; R07.9 Chest pain, unspecified; R00.2 Palpitations; R51.9 Headache, unspecified; R11.0 Nausea; J44.9 Chronic obstructive pulmonary disease, unspecified; F17.210 Nicotine dependence, cigarettes, uncomplicated; Z79.51 Long term (current) use of inhaled steroids; Z79.52 Long term (current) use of systemic steroids; Z79.899 Other long term (current) drug therapy
CPT/HCPCS: 36415; 70450; 72125; 72170; 80048; 84484; 85025; 99285

== ENCOUNTER → 2022-06-11 15:20 | Outpatient (CLI) | payer MEDICAID, SELFPAY ==
[2022-06-11 17:55] LABS: Free T4 (Free Thyroxine) 1.04 ng/dl (0.78-2.19)
[2022-06-11 18:31] LABS: Basophils % 0.4 % (0.1-2.0); Eosinophils # 0.1 K/mm3 (0.0-0.4); Eosinophils % 1.2 % (0.1-12.0); Hemoglobin 13.9 g/dL (12.2-16.2); Lymphocytes # 2.2 K/mm3 (0.7-4.5); Lymphocytes % 29.2 % (10-50); Mean Corpuscular HGB Conc 32.3 g/dL (31.8-35.4); Mean Corpuscular Hemoglobin 29.9 pg (27.0-31.2); Mean Corpuscular Volume 92.6 fl (81-99); Mean Platelet Volume 9.9 fl (7.4-10.4); Monocytes # 0.3 K/mm3 (0.1-1.0); Monocytes % 4.1 % (1.7-9.3); Neutrophils # 4.8 K/mm3 (1.8-7.8); Neutrophils % 65.2 % (37.0-80.0); Platelet Count 195 K/mm3 (142-424); Red Blood Count 4.64 M/mm3 (4.20-5.40); Red Cell Distribution Width 13.6 % (11.5-17.5); White Blood Count 7.4 K/mm3 (4.8-10.8)
[2022-06-11 18:37] LABS: Hemoglobin A1C 5.2 % (4.0-6.0)
[2022-06-11 19:10] LABS: Direct LDL Cholesterol 147.03 mg/dL (100-129)
[2022-06-11 19:37] LABS: Alanine Aminotransferase 10 U/L (12-78); Albumin Level 4.3 g/dl (3.5-5.0); Albumin/Globulin Ratio 1.7 (1.1-1.8); Alkaline Phosphatase 76 U/L (38-126); Aspartate Amino Transferase 19 U/L (14-36); Bilirubin,Total 0.3 mg/dl (0.2-1.3); Blood Urea Nitrogen 10 mg/dl (7-17); Calcium 9.1 mg/dl (8.4-10.2); Carbon Dioxide 27 mmol/L (22.0-30.0); Chloride 106 mmol/L (98-107); Chol/HDL Ratio 4.8 (1-3.5); Cholesterol 237 mg/dl (140-200); Estimated Glomerular Filt Rate 88 ml/min (>60); GFR (African American) 107 ML/MIN (>60); Globulin 2.5 g/dL (1.3-3.2); Glucose 75 mg/dl (74-100); HDL Cholesterol 49 mg/dl (40-60); Sodium 143 mmol/L (136-145); Thyroid Stimulating Hormone 2.68 uIU/mL (0.465-4.68); Total Protein,Serum 6.8 g/dl (6.3-8.2); Triglycerides 156 mg/dl (30-150); VLDL Cholesterol 31 mg/dL (0-40)
== END ==
PROVIDERS: PCP Student in an Organized Health Care Education/Training Program; Visit Provider Student in an Organized Health Care Education/Training Program
DX: G43.909 Migraine, unspecified, not intractable, without status migrainosus (principal); Z13.1 Encounter for screening for diabetes mellitus; Z13.29 Encounter for screening for other suspected endocrine disorder; Z13.220 Encounter for screening for lipoid disorders; R00.1 Bradycardia, unspecified; I34.1 Nonrheumatic mitral (valve) prolapse; F20.9 Schizophrenia, unspecified; Z72.0 Tobacco use
CPT/HCPCS: 80053; 80061; 83036; 84439; 84443; 85025

== ENCOUNTER 2022-09-20 21:47 | Emergency (ER) | payer MEDICAID, SELFPAY ==
[2022-09-20 21:47] VITALS: BP 124/65; PULSE 63; RESP 16; TEMP 36.8; O2SAT 99; BMI 21.9
--- NOTE | 2022-09-20 21:56 | ECG_ITS ---
APPROVED REPORT Exam: Resting ECG HR:59 bpm ECG Measurements Heart Rate 59 AXES [place] 146 P 60 QRSd 85 QRS 75 QT 391 T 61 QTc 389 Conclusion SINUS BRADYCARDIA BORDERLINE ECG UNCONFIRMED REPORT Electronically signed by : Bhavesh Quezada MD 09/21/2022 07:01:02
--- NOTE | 2022-09-20 22:14 | CT_ITS ---
PROCEDURE INFORMATION: Exam: CT Thoracic Spine Without Contrast Exam date and time: 09/20/2022 10:59 PM Age: 52 years old Clinical indication: Pain in thoracic spine; Additional info: Mid t spine tenderness after lifting TECHNIQUE: Imaging protocol: Computed tomography of the thoracic spine without contrast. Radiation optimization: All CT scans at this facility use at least one of these dose optimization techniques: automated exposure control; mA and/or kV adjustment per patient size (includes targeted exams where dose is matched to clinical indication); or iterative reconstruction. REPORTING DATA: Count of CT and Cardiac NM exams in prior 12 months: This patient has received 2 known CTs and 0 known cardiac nuclear medicine studies in the 12 months prior to the current study. COMPARISON: CT CERVICAL SPINE WO CON 01/21/2022 7:20 PM FINDINGS: Bones/joints: No acute fracture. Normal alignment. No significant disc bulge or herniation. No severe spinal canal stenosis. No significant neural foraminal narrowing. Soft tissues: Unremarkable. IMPRESSION: Unremarkable CT Spine.
--- NOTE | 2022-09-20 22:40 | HMH.EDGENADL ---
Discharge Plan Disposition Patient Disposition: Still a Patient Prescriptions Prescriptions: New prednisone 20 mg tablet 40 mg PO BID 5 Days Qty: 20 0RF No Action quetiapine [Seroquel] 25 mg tablet 25 mg PO BID Qty: 60 0RF Referrals Follow up/Referrals: Maria R Tobin PA [Primary Care Provider] - See instructions Activity Restrictions/Add. Instructions Additional Instructions/Restrictions: Steroids been sent to your pharmacy, take 40 mg daily for 5 days. Take Tylenol 1000 mg every 6 hours (4 times daily) and ibuprofen 400 mg every 6 hours (4 times daily) as needed with food and water to prevent GI upset and kidney damage. Call your family doctor to establish care for this visit to the emergency department and schedule follow-up within 48 hours to ensure improvement. If you have any worsening of your condition or any other concerning signs or symptoms, return to the emergency department or your primary care doctor for further evaluation. Clinical Impressions Clinical Impression: Back pain Instructions Patient Instructions: DI for Low Back Pain Discharge ED Provider: Ollie Velázquez General Adult HPI <Martin Flores MD - Last Filed: 09/20/22 23:29> General Chief complaint: Back Pain/Injury Stated complaint: painful breathing Time Seen by Provider: 09/20/22 21:54 Mode of Arrival: Ambulatory Source of Information: Patient Limitations: No Limitations Description of Symptoms (Recalled from ER Triage Doc. by RN): pt c/o pain midline of shoulder blades that started yesterday after helping moving furniture. pt becomes SOA when moving History of Present Illness HPI narrative: Is a 52-year-old female with no relevant medical history presenting with back pain. Patient states that she was moving furniture in her house today when she had acute onset back pain. Was moving furniture 1 day prior to arrival as well, had mild mid back pain, but made worse today after further exertion. Denies bowel or bladder dysfunction, saddle anesthesia, lower extremity weakness, or any other concerns. No history of IV drug abuse, trauma, bacteremia, or any other concerning history Related Data Previous Rx's Medication Instructions Recorded quetiapine 25 mg tablet (Seroquel) 25 mg PO BID #60 tabs 07/03/22 prednisone 20 mg tablet 40 mg PO BID 5 days #20 tabs 09/20/22 Allergies Allergy/AdvReac Type Severity Reaction Status Date / Time No Known Allergies Allergy Verified 06/11/22 14:34 PFSH <Martin Flores MD - Last Filed: 09/20/22 23:29> PFS Disclaimer: The information contained in this section may have been updated after the patient was seen, as this information can be updated by other users. 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 (Updated 09/20/22 @ 22:44 by Martin Flores MD) Chest pain COPD (chronic obstructive pulmonary disease) Palpitations Schizophrenia Syncope Surgical History H/O: hysterectomy Social History Smoking Status: Current every day smoker tobacco type: cigarettes packs per day: 1 second hand exposure: Yes alcohol intake: never substance use type: marijuana current occupational status: employed Travel in the last 8 weeks: [place] the [place] housing[place] house number of children: 3 <Martin Flores MD - Last Filed: 09/20/22 23:29> ROS Obtained: Yes All systems reviewed & no additional complaints except as documented Physical Exam <Martin Flores MD - Last Filed: 09/20/22 23:29> General General appearance: alert, in no apparent distress, in distress (pain) and other ( ) Head Head exam: atraumatic and normocephalic Eye Eye exam: Present normal appearance, PERRL and EOMI ENT ENT exam: Present mucous membranes moist Neck Neck exam: Present normal inspection, full ROM and trachea midline Respiratory Respiratory exam: Absent respiratory distress, wheezes, stridor, accessory muscle use or prolonged expi
[2022-09-21 00:22] VITALS: BP 114/61; PULSE 48; RESP 16; TEMP 36.8; O2SAT 98
== END 2022-09-21 00:29 | disposition still patient (30) ==
PROVIDERS: Emergency Provider Emergency Medicine; PCP Student in an Organized Health Care Education/Training Program
DX: R06.02 Shortness of breath (principal); M54.6 Pain in thoracic spine; X50.0XXA Overexertion from strenuous movement or load, initial encounter; J44.9 Chronic obstructive pulmonary disease, unspecified; F20.9 Schizophrenia, unspecified; F17.210 Nicotine dependence, cigarettes, uncomplicated
CPT/HCPCS: 72128; 93005; 96374; 96375; 99284; J0131

== ENCOUNTER 2022-12-19 19:50 | Emergency (ER) | payer OTHER, MEDICAID, SELFPAY ==
[2022-12-19 19:52] VITALS: BP 162/80; PULSE 74; RESP 16; TEMP 36.6; O2SAT 97; BMI 22.2
--- NOTE | 2022-12-19 20:30 | CT_ITS ---
PROCEDURE INFORMATION: Exam: CT Thoracic Spine Without Contrast Exam date and time: 12/19/2022 8:54 PM Age: 52 years old Clinical indication: Pain; Additional info: Trauma, critical injury suspected TECHNIQUE: Imaging protocol: Computed tomography of the thoracic spine without contrast. Radiation optimization: All CT scans at this facility use at least one of these dose optimization techniques: automated exposure control; mA and/or kV adjustment per patient size (includes targeted exams where dose is matched to clinical indication); or iterative reconstruction. REPORTING DATA: Count of CT and Cardiac NM exams in prior 12 months: This patient has received 3 known CTs and 0 known cardiac nuclear medicine studies in the 12 months prior to the current study. COMPARISON: CT THORACIC SPINE WO CON 09/20/2022 10:59 PM FINDINGS: Bones/joints: No acute fracture or subluxation. Mild spondylosis and Schmorl's nodes of the spine. Soft tissues: Unremarkable. Coronary arteries: Atherosclerosis, including the coronary arteries. Other findings: Calcified mediastinal and right hilar granulomata. IMPRESSION: No acute fracture or subluxation.
--- NOTE | 2022-12-19 20:30 | CT_ITS ---
PROCEDURE INFORMATION: Exam: CT Cervical Spine Without Contrast Exam date and time: 12/19/2022 8:52 PM Age: 52 years old Clinical indication: Pain; Additional info: Trauma, critical injury suspected TECHNIQUE: Imaging protocol: Computed tomography of the cervical spine without contrast. Radiation optimization: All CT scans at this facility use at least one of these dose optimization techniques: automated exposure control; mA and/or kV adjustment per patient size (includes targeted exams where dose is matched to clinical indication); or iterative reconstruction. REPORTING DATA: Count of CT and Cardiac NM exams in prior 12 months: This patient has received 3 known CTs and 0 known cardiac nuclear medicine studies in the 12 months prior to the current study. COMPARISON: CT CERVICAL SPINE WO CON 01/21/2022 7:20 PM FINDINGS: Bones/joints: No acute fracture. Normal alignment. Mild disc space narrowing and endplate osteophytes at C5-C6 and C6-C7. Central disc bulge at C5-C6 and C6-C7. No severe spinal canal stenosis. Multilevel facet and uncovertebral joint hypertrophy. Mild bilateral bony foraminal stenosis at C3-C4. Mild right-sided bony foraminal stenosis at C4-C5. Moderate right-sided and mild left-sided bony foraminal stenosis at C5-C6. Mild bilateral bony foraminal stenosis at C6-C7. Lungs: Lung apices are normal. Soft tissues: Unremarkable. IMPRESSION: No acute findings.
--- NOTE | 2022-12-19 20:30 | CT_ITS ---
PROCEDURE INFORMATION: Exam: CT Lumbar Spine Without Contrast Exam date and time: 12/19/2022 8:57 PM Age: 52 years old Clinical indication: Pain; Additional info: Trauma, critical injury suspected TECHNIQUE: Imaging protocol: Computed tomography of the lumbar spine without contrast. Radiation optimization: All CT scans at this facility use at least one of these dose optimization techniques: automated exposure control; mA and/or kV adjustment per patient size (includes targeted exams where dose is matched to clinical indication); or iterative reconstruction. REPORTING DATA: Count of CT and Cardiac NM exams in prior 12 months: This patient has received 3 known CTs and 0 known cardiac nuclear medicine studies in the 12 months prior to the current study. COMPARISON: CT THORACIC SPINE WO CON 12/19/2022 8:54 PM FINDINGS: Bones/joints: No acute fracture or subluxation. Mild spondylosis and small Schmorl's nodes of the spine. Vasculature: Atherosclerosis. Ectatic infrarenal abdominal aorta. Soft tissues: Unremarkable. IMPRESSION: No acute fracture or subluxation.
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
[2022-12-19 20:45] LABS: Basophils # 0.1 K/mm3 (0-0.2); Basophils % 0.7 % (0.1-2.0); Eosinophils # 0.1 K/mm3 (0.0-0.4); Eosinophils % 1.7 % (0.1-12.0); Hematocrit 44.2 % (37.0-47.0); Hemoglobin 15.5 g/dL (12.2-16.2); Lymphocytes # 2.7 K/mm3 (0.7-4.5); Lymphocytes % 32.7 % (10-50); Mean Corpuscular HGB Conc 35.1 g/dL (31.8-35.4); Mean Corpuscular Hemoglobin 32.1 pg (27.0-31.2); Mean Corpuscular Volume 91.5 fl (81-99); Mean Platelet Volume 9.2 fl (7.4-10.4); Monocytes # 0.5 K/mm3 (0.1-1.0); Monocytes % 6.2 % (1.7-9.3); Neutrophils # 4.8 K/mm3 (1.8-7.8); Neutrophils % 58.7 % (37.0-80.0); Platelet Count 209 K/mm3 (142-424); Red Blood Count 4.83 M/mm3 (4.20-5.40); Red Cell Distribution Width 13.9 % (11.5-17.5); White Blood Count 8.2 K/mm3 (4.8-10.8)
[2022-12-19 20:46] LABS: Chloride 106 mmol/L (98-107); Potassium 3.6 mmoL/L (3.5-5.1); Sodium 141 mmol/L (136-145)
[2022-12-19 20:48] LABS: Blood Urea Nitrogen 15 mg/dl (7-17); Creatinine Clearance Estimated 78 mL/min (50-200); Estimated Glomerular Filt Rate 88 ml/min (>60); GFR (African American) 107 ML/MIN (>60)
[2022-12-19 20:49] LABS: Alanine Aminotransferase 19 U/L (12-78); Albumin/Globulin Ratio 1.5 (1.1-1.8); Alkaline Phosphatase 79 U/L (38-126); Anion Gap 14.6 mEq/L (5-15); Aspartate Amino Transferase 34 U/L (14-36); Bilirubin,Total 0.8 mg/dl (0.2-1.3); Calcium 9.7 mg/dl (8.4-10.2); Carbon Dioxide 24 mmol/L (22.0-30.0); Globulin 3.4 g/dL (1.3-3.2); Glucose 94 mg/dl (74-100); Lipase 92 U/L (23-300); Total Protein,Serum 8.4 g/dl (6.3-8.2)
[2022-12-19 20:51] LABS: HCG Qualitative, Serum Negative (Negative)
[2022-12-19 21:15] VITALS: BP 131/79; PULSE 49; RESP 12; O2SAT 99
--- NOTE | 2022-12-19 21:39 | PC.NURSE ---
Dr. Velázquez in room
--- NOTE | 2022-12-19 21:46 | PC.NURSE ---
Dr. Velázquez advised me to take pt up and down the lin for a walk to see how she felt. After walking pt advised this is the best she has felt since of this week.
[2022-12-19 21:50] VITALS: BP 137/74; PULSE 55; RESP 12; TEMP 36.6; O2SAT 97
== END 2022-12-19 21:51 | disposition home or self-care (01) ==
PROVIDERS: Emergency Provider Emergency Medicine; PCP Emergency Medicine
DX: S06.0X9A Concussion with loss of consciousness of unspecified duration, initial encounter (principal); R07.89 Other chest pain; R10.13 Epigastric pain; F17.210 Nicotine dependence, cigarettes, uncomplicated; J44.9 Chronic obstructive pulmonary disease, unspecified; F39 Unspecified mood [affective] disorder; V49.40XA Driver injured in collision with unspecified motor vehicles in traffic accident, initial encounter; Y92.410 Unspecified street and highway as the place of occurrence of the external cause
CPT/HCPCS: 70450; 71275; 72125; 72128; 72131; 74174; 80053; 83690; 84703; 85025; 96374; 96375; 99285; J0131; Q9967

== ENCOUNTER 2023-06-13 14:03 | Emergency (ER) | payer MEDICAID, SELFPAY ==
[2023-06-13 14:03] VITALS: BP 122/56; PULSE 65; RESP 18; TEMP 36.8; O2SAT 97; BMI 22.4
[2023-06-13 15:12] LABS: Adenovirus,PCR Not Detected (NotDetected); Coronavirus 19, PCR Not Detected (NotDetected); Coronavirus 229E Not Detected (NotDetected); Coronavirus NL63 Not Detected (NotDetected); Coronavirus OC43 Not Detected (NotDetected); Coronovirus HKU1,PCR Not Detected (NotDetected); Influenza A, PCR Not Detected (NotDetected); Influenza AH1, 2009 Not Detected (NotDetected); Influenza AH1, PCR Not Detected (NotDetected); Influenza AH3,PCR Not Detected (NotDetected); Influenza B, PCR Not Detected (NotDetected); Parainfluenza 1, PCR Not Detected (NotDetected); Parainfluenza 2, PCR Not Detected (NotDetected); Parainfluenza 3, PCR Not Detected (NotDetected); Parainfluenza 4, PCR Not Detected (NotDetected); Respiratory Syncytial Virus Not Detected (NotDetected); Rhinovirus/Enterovirus Not Detected (NotDetected)
--- NOTE | 2023-06-13 15:26 | EXP.UTC ---
Discharge Plan Disposition Patient Disposition: Home, Self-Care Condition: Good Prescriptions Prescriptions: New ondansetron 4 mg tablet,disintegrating 4 mg PO Q8H PRN (Reason: nausea and vomiting) 3 Days Qty: 10 0RF No Action tizanidine 2 mg capsule 2 mg PO Q8H PRN (Reason: muscle spasticity) 30 Days Qty: 90 2RF olanzapine 10 mg tablet 10 mg PO DAILY estradiol [Estrace] 2 mg tablet 2 mg PO DAILY Qty: 30 6RF metronidazole 500 mg tablet 500 mg PO BID 7 Days Qty: 14 1RF Referrals Follow up/Referrals: Rob Guevara DO [Primary Care Provider] - See instructions Activity Restrictions/Add. Instructions Additional Instructions/Restrictions: Monitor temperature. Seek treatment if fever develops. Follow-up immediately if new or worse symptoms worsen or no noticeable improvement over 48 hours. Increase fluids such as water, Gatorade, Powerade, juice or Pedialyte with limited formula/dietary in children No food is okay as long as you are drinking. Once ready to eat start bland such as bananas, rice, applesauce, toast. Contagious until no diarrhea, vomiting, fever times 48 hours without medication Avoid antidiarrheals unless told otherwise. Best to let the virus run its course. Follow-up immediately for new or worsening symptoms or no noticeable improvement over the next 48 hours. Clinical Impressions Clinical Impression: Nausea & vomiting, Diarrhea Instructions Patient Instructions: Nausea and Vomiting-Adult, Diarrhea Discharge ED Provider: Sujey ([facility])Vikas [facility] [place] HPI General Stated complaint: abd pain, diarrhea, headache Mode of Arrival: Ambulatory Source of Information: Patient Time Seen by Provider: 06/13/23 15:26 Description of Symptoms (Recalled from Triage Doc. by RN): i have the runs, im freezing, my body hurts, i cant eat and i have no energy, and i have a headache aching in back and shoulders have been exposed to covid, rhino, rsv HEENT Symptoms (Recalled from RN notes): No Resp Symptoms (Recalled from RN notes): No Skin Symptoms (Recalled from RN notes): No MS Symptoms (Recalled from RN notes): No Functional Status (Recalled from RN notes): na History of Present Illness Provider Complaint: 53 yr old female presents for c/o diarrhea,chills, body aches,nausea,vomiting, headache and no energy have been exposed to covid, rhino, rsv Related Data Home Medications Medication Instructions Recorded Confirmed olanzapine 10 mg tablet 10 mg PO DAILY 04/13/23 04/13/23 Previous Rx's Medication Instructions Recorded tizanidine 2 mg capsule 2 mg PO Q8H PRN muscle spasticity 04/10/23 30 days #90 caps estradiol 2 mg tablet (Estrace) 2 mg PO DAILY #30 tabs 04/13/23 metronidazole 500 mg tablet 500 mg PO BID 7 days #14 tabs 04/13/23 ondansetron 4 mg disintegrating 4 mg PO Q8H PRN nausea and 06/13/23 tablet vomiting 3 days #10 tabs Allergies Allergy/AdvReac Type Severity Reaction Status Date / Time No Known Allergies Allergy Verified 04/13/23 13:49 Worker's Comp Is this a Worker's Comp case?: No [facility] Disclaimer: The information contained in this section may have been updated after the patient was seen, as this information can be updated by other users. 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 , [employer]) Ovarian cancer Schizophrenia COPD (chronic obstructive pulmonary disease) Syncope Palpitations Chest pain Surgical History , [employer]) H/O wisdom tooth extraction H/O: hysterectomy Family History , [employer]) No significant family history Social History , [employer]) Smoking Status: Current every day smoker tobacco type: cigarettes packs per day: 1 second hand exposure: Yes alcohol intake: never substance use type: marijuana current occupational status: disabled Travel in the last 8 weeks: [place] the [place] housing[place] house number of children: 3 ROS Obtained: Yes All systems reviewed & no additional complaints except as documented Constitutional Constitutional: Reports system reviewed and no additional complaints, except as documented, Reports as per HPI, Reports body ache, Reports chills, Reports fever(s), Reports poor appetite and Reports weakness Eyes Eyes: Reports system reviewed and no additional complaints, except as documented ENT Ears, Nose, Mouth, and Throat: Reports system reviewed and no additional complaints, except as documented Cardiovascular Cardiovascular: Reports system reviewed and no additional complaints, except as documented Respiratory Respiratory: Reports system reviewed and no additional complaints, except as documented Gastrointestinal Gastrointestingal: Reports system reviewed and no additional complaints, except as documented, as per HPI, cramping, diarrhea, nausea and vomiting Musculoskeletal Musculoskeletal: Reports system reviewed and no additional complaints, except as documented Integumentary/Breasts Skin/Breast: Reports system reviewed and no additional complaints, except as documented Neurologic Neurologic: Reports system reviewed and no additional complaints, except as documented and Reports weakness Endocrine Endocrine: Reports system reviewed and no additional complaints, except as documented Hematologic/Lymphatic Henatologic/Lymphatic: Reports system reviewed and no additional complaints, except as documented Allergic/Immunologic Allergic/Immunologic: Reports system reviewed and no additional complaints, except as documented Physical Exam General General appearance: alert and in no apparent distress Head Head exam: atraumatic Eye Eye exam: Present normal appearance and PERRL ENT ENT exam: Present normal exam, normal oropharynx, mucous membranes moist and TM's normal bilaterally Respiratory Respiratory exam: Present normal lung sounds bilaterally Cardiovascular Cardiovascular exam: Present regular rate and normal rhythm Abdominal Exam Abdominal exam: Present soft and normal bowel sounds; Absent tenderness Neurological Exam Neurological exam: Present alert and oriented X3 Skin Skin exam: Present warm and intact Medical Decision Making Medical Records Medical records reviewed: Yes I reviewed the patient's medical records. Dariel Inquiry Pt receiving controlled substance: No Dariel was queried for this patient: No Vital Signs: 06/13/23 14:03 Temperature 98.3 F Temperature Source Oral Pulse Rate [Left Radial] 65 Respiratory Rate 18 Blood Pressure [Right Arm] 122/56 L Blood Pressure Mean [Right Arm] 78 02 Sat by Pulse Oximetry 97 Oxygen Delivery Method Room Air Lab Data Lab results reviewed: Yes I reviewed the patient's lab results. Orders (Tests/Meds): ORDERS Category Date Time Status Full Resp Panel w/COVID ([facility]) Routine Lab 06/13/23 15:05 Received
[2023-06-13] MEDS: ONDANSETRON 4MG ODT 4 MG SL (15:48)
[2023-06-13 15:52] VITALS: BP 122/56; PULSE 65; RESP 18; TEMP 36.8; O2SAT 97
[2023-06-13 22:48] LABS: Human Metapneumovirus Detected (NotDetected)
== END 2023-06-13 15:53 | disposition home or self-care (01) ==
PROVIDERS: Emergency Provider Nurse Practitioner Family; PCP Internal Medicine
DX: B97.81 Human metapneumovirus as the cause of diseases classified elsewhere (principal); R11.2 Nausea with vomiting, unspecified; R19.7 Diarrhea, unspecified; F17.210 Nicotine dependence, cigarettes, uncomplicated
CPT/HCPCS: 87632; 87635; 99204; 99212; G0463

== ENCOUNTER 2023-06-20 19:53 | Emergency (ER) | payer MEDICAID, SELFPAY ==
[2023-06-20 20:04] VITALS: RESP 17; TEMP 36.1; O2SAT 98; BMI 24.0
--- NOTE | 2023-06-20 20:44 | CT_ITS ---
PROCEDURE INFORMATION: Exam: CT Head Without Contrast Exam date and time: 06/20/2023 9:28 PM Age: 53 years old Clinical indication: Pain; Headache; Migraine; Additional info: New migraines TECHNIQUE: Imaging protocol: Computed tomography of the head without contrast. Radiation optimization: All CT scans at this facility use at least one of these dose optimization techniques: automated exposure control; mA and/or kV adjustment per patient size (includes targeted exams where dose is matched to clinical indication); or iterative reconstruction. COMPARISON: CT HEAD/BRAIN WO CON 12/19/2022 8:50 PM FINDINGS: Brain: No evidence for intracranial hemorrhage, mass lesions or acute stroke. Intracranial vascular calcifications. Cerebral ventricles: No ventriculomegaly. Pituitary gland and sella: Negative Paranasal sinuses: Visualized sinuses are unremarkable. No fluid levels. Mastoid air cells: Visualized mastoid air cells are well aerated. Orbital cavities: Negative. Parotid and submandibular glands: Negative Bones: Unremarkable. No acute fracture. Soft tissues: Unremarkable. Vasculature: Negative. IMPRESSION: No evidence for intracranial hemorrhage, mass lesions or acute stroke. Intracranial vascular calcifications.
--- NOTE | 2023-06-20 20:49 | HMH.EDGENADL ---
Discharge Plan Disposition Patient Disposition: Home, Self-Care Chief Complaint: Headache Prescriptions Prescriptions: No Action tizanidine 2 mg capsule 2 mg PO Q8H PRN (Reason: muscle spasticity) 30 Days Qty: 90 2RF olanzapine 10 mg tablet 10 mg PO DAILY estradiol [Estrace] 2 mg tablet 2 mg PO DAILY Qty: 30 6RF metronidazole 500 mg tablet 500 mg PO BID 7 Days Qty: 14 1RF ondansetron 4 mg tablet,disintegrating 4 mg PO Q8H PRN (Reason: nausea and vomiting) 3 Days Qty: 10 0RF Referrals Follow up/Referrals: Provider,Referral, MD [Primary Care Provider] - See instructions Activity Restrictions/Add. Instructions Additional Instructions/Restrictions: Talk to your doctor about migraine controller medications. Call your family doctor to establish care for this visit to the emergency department and schedule follow-up within 48 hours to ensure improvement. If you have any worsening of your condition or any other concerning signs or symptoms, return to the emergency department or your primary care doctor for further evaluation. Clinical Impressions Clinical Impression: Migraine Discharge ED Provider: Martin Flores General Adult HPI General Chief complaint: Headache Stated complaint: h/a Time Seen by Provider: 06/20/23 19:56 Mode of Arrival: Family Vehicle Source of Information: Patient Limitations: No Limitations Description of Symptoms (Recalled from ER Triage Doc. by RN): right side face pain, back of neck pain; patient has a chronic history of migraines. associative symptoms are lightheaded,dizzy,blurry vision. History of Present Illness HPI narrative: Please note that above description of symptoms, in this electronic medical record under categorization of recalled from ER triage doctor by RN are reflective of an initial nursing assessment, however, is not reflective of my full history and physical exam that was personally taken and clarified. Consequentially, this preceding description of symptoms, which may include the patient's categorized chief complaint in the EMR, do not reflect my personal clinical impression, and the ultimate description of history of present illness and patient stated complaints should be deferred to this section of the note. Unless stated otherwise or congruent with this section of the note, additional signs, symptoms, or incongruence should be interpreted as inaccurate with my clinical impression. Related Data Home Medications Medication Instructions Recorded Confirmed olanzapine 10 mg tablet 10 mg PO DAILY 04/13/23 04/13/23 Previous Rx's Medication Instructions Recorded tizanidine 2 mg capsule 2 mg PO Q8H PRN muscle spasticity 04/10/23 30 days #90 caps estradiol 2 mg tablet (Estrace) 2 mg PO DAILY #30 tabs 04/13/23 metronidazole 500 mg tablet 500 mg PO BID 7 days #14 tabs 04/13/23 ondansetron 4 mg disintegrating 4 mg PO Q8H PRN nausea and 06/13/23 tablet vomiting 3 days #10 tabs Allergies Allergy/AdvReac Type Severity Reaction Status Date / Time No Known Allergies Allergy Verified 04/13/23 13:49 PFSH PFS Disclaimer: The information contained in this section may have been updated after the patient was seen, as this information can be updated by other users. 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) Smoking Status: Current every day smoker tobacco type: cigarettes packs per day: 1 second hand exposure: Yes alcohol intake: never substance use type: marijuana current occupational status: disabled Travel in the last 8 weeks: Inside the [place] housing: house number of children: 3 ROS Obtained: Yes All systems reviewed & no additional complaints except as documented Physical Exam General General appearance: alert and in no apparent distress Head Head exam: atraumatic and normocephalic Eye Eye exam: Present normal appearance, PERRL and EOMI ENT ENT exam: Present mucous membranes moist Neck Neck exam: Present normal inspection, full ROM and trachea midline Respiratory Respiratory exam: Absent respiratory distress, wheezes, stridor, accessory muscle use or prolonged expiratory phase Cardiovascular Cardiovascular exam: Present normal rhythm Abdominal Exam Abdominal exam: Present soft; Absent distention, tenderness, guarding, rebound or rigidity Extremities Exam Extremities exam: Absent edema Neurological Exam Neurological exam: Present alert, oriented X3, CN II-XII intact and normal gait; Absent motor sensory deficit Skin Skin exam: Present warm and dry; Absent diaphoresis or erythema Medical Decision Making Medical Records Medical records reviewed: Yes I reviewed the patient's medical records. Dariel Inquiry Pt receiving controlled substance: No Dariel was queried for this patient: No Vital Signs: 06/20/23 20:04 Temperature 97.0 F L Temperature Source Oral Respiratory Rate 17 02 Sat by Pulse Oximetry 98 Oxygen Delivery Method Room Air Orders (Tests/Meds): ED MEDICATIONS Discontinued Medications Generic Name Dose Route Start Last Admin Trade Name Freq PRN Reason Stop Dose Admin Acetaminophen 1,000 mg 06/20/23 20:03 06/20/23 21:09 Acetaminophen 500mg Tab PO 06/20/23 20:04 Not Given ONCE ONE Acetaminophen 1,000 mg 06/20/23 20:14 06/20/23 20:54 Acetaminophen 1,000mg/100ml Vial IV 06/20/23 20:15 1,000 mg ONCE ONE Administration Dexamethasone Sodium Phosphate 10 mg 06/20/23 20:03 06/20/23 20:56 Dexamethasone 4mg/Ml 1ml Vial IV 06/20/23 20:04 10 mg ONCE ONE Administration Diphenhydramine HCl 25 mg 06/20/23 20:03 06/20/23 20:55 Diphenhydramine 50mg/Ml Vial IV 06/20/23 20:04 25 mg ONCE ONE Administration Lactated Ringer's 1,000 mls @ 999 mls/hr 06/20/23 20:03 06/20/23 20:53 Lactated Ringer's 1000 Ml Bag IV 06/20/23 21:03 999 mls/hr .Q1H1M ONE Administration Ketorolac Tromethamine 15 mg 06/20/23 20:03 06/20/23 20:55 Ketorolac 30mg/Ml Vial IV 06/20/23 20:04 15 mg ONCE ONE Administration Prochlorperazine Edisylate 10 mg 06/20/23 20:03 06/20/23 20:56 Prochlorperazine 10mg/2ml Vial IV 06/20/23 20:04 10 mg ONCE ONE Administration Sumatriptan Succinate 6 mg 06/20/23 20:03 06/20/23 20:55 Sumatriptan 6mg/0.5ml Vial SQ 06/20/23 20:04 6 mg ONCE ONE Administration ORDERS Category Date Time Status CT head/brain wo con Stat Cat Scan 06/20/23 20:44 Completed Medical Decision Narrative: 53-year-old female history of migraines presenting with worsening migraines. Been going on for the past couple of months getting worse. Worse throughout the day, these most recent couple have been worse at night getting better in the morning, worse throughout the day. Does not have control or abortive medications. Associated with nausea, blurry vision when pain is bad, no neurologic deficits. History was obtained via conversation with patient. On arrival, patient hemodynamically stable, alert, oriented x4, appropriate, GCS 15, moving all extremities spontaneously, pupils equal and reactive to light. Full physical exam performed and significant for tearful, but neurologically intact. Well-appearing overall. Differential includes headache, migraine, intracranial mass, among others. Patient was given migraine cocktail for symptomatic management and correction of underlying abnormalities. Workup independently interpreted and significant for no intracranial abnormality. See radiology read for full review of final results. On reevaluation, patient sleeping comfortably. Because patient at baseline without signs or symptoms of clinical decompensation, deemed appropriate for discharge. Results were relayed to patient who voiced understanding and were agreeable to outpatient management and follow up. I discussed my clinical impression with patient and answered all questions. At this time, the evidence for any other entities in the differential is insufficient to warrant any further testing or ED observation. This was explained as well. Advisory was given that persistent or worsening symptoms require further evaluation. I confirmed the understanding of this discussion. Critical Care Critical Care Time Critical Care Time: No
[2023-06-20] MEDS: LACTATED RINGERS 1000ML 1,000 ML 999 ML IV (20:53)
[2023-06-20] MEDS: ACETAMINOPHEN 1,000MG/100ML VIAL 1000 MG IV (20:54)
[2023-06-20] MEDS: diphenhydrAMINE 50MG/ML VIAL 25 MG IV (20:55)
[2023-06-20] MEDS: KETOROLAC 30MG/ML VIAL 15 MG IV (20:55)
[2023-06-20] MEDS: SUMAtriptan 6MG/0.5ML VIAL 6 MG SQ (20:55)
[2023-06-20] MEDS: PROCHLORPERAZINE 10MG/2ML VIAL 10 MG IV (20:56)
[2023-06-20] MEDS: DEXAMETHASONE 4MG/ML 1ML VIAL 10 MG IV (20:56)
[2023-06-20 22:42] VITALS: BP 110/70; PULSE 80; RESP 14; TEMP 36.7; O2SAT 98
== END 2023-06-20 22:43 | disposition home or self-care (01) ==
PROVIDERS: Emergency Provider Emergency Medicine
DX: G43.909 Migraine, unspecified, not intractable, without status migrainosus (principal); R42 Dizziness and giddiness
CPT/HCPCS: 70450; 96361; 96372; 96374; 96375; 99284; J0131

== ENCOUNTER 2023-08-08 20:04 | Emergency (ER) | payer MEDICAID, SELFPAY ==
[2023-08-08 20:06] VITALS: BP 112/50; PULSE 67; RESP 20; TEMP 36.9; O2SAT 99; BMI 19.1
[2023-08-08 20:39] VITALS: BMI 19.3
[2023-08-08 20:46] LABS: Coronavirus 19, PCR Not Detected (NotDetected); Influenza A, PCR Not Detected (NotDetected); Influenza B, PCR Not Detected (NotDetected)
--- NOTE | 2023-08-08 21:19 | XR_ITS ---
PROCEDURE INFORMATION: Exam: XR Chest Exam date and time: 08/08/2023 9:18 PM Age: 53 years old Clinical indication: Cough; Patient HX: Smoker TECHNIQUE: Imaging protocol: Radiologic exam of the chest. Views: 2 views. COMPARISON: CT ANGIO CHEST 12/19/2022 9:01 PM FINDINGS: Lungs: Right midlung granuloma. No consolidation. No mass. Pleural spaces: Unremarkable. No pleural effusion. No pneumothorax. Heart/Mediastinum: Calcified subcarinal lymph node. No cardiomegaly. Vasculature: Unremarkable. Bones/joints: Unremarkable. IMPRESSION: No acute findings.
--- NOTE | 2023-08-08 22:27 | ED_ITS ---
Discharge Plan Disposition Patient Disposition: Home, Self-Care Condition: Good Prescriptions Prescriptions: New amoxicillin-pot clavulanate 875-125 mg tablet 1 tab PO BID 7 Days Qty: 14 0RF prednisone 50 mg tablet 40 mg PO DAILY 5 Days Qty: 4 0RF albuterol sulfate 90 mcg/actuation HFA aerosol inhaler 2 inh inhalation Q6H PRN (Reason: shortness of breath or wheezing) Qty: 8.5 0RF No Action tizanidine 2 mg capsule 2 mg PO Q8H PRN (Reason: muscle spasticity) 30 Days Qty: 90 2RF olanzapine 10 mg tablet 10 mg PO DAILY estradiol [Estrace] 2 mg tablet 2 mg PO DAILY Qty: 30 6RF metronidazole 500 mg tablet 500 mg PO BID 7 Days Qty: 14 1RF ondansetron 4 mg tablet,disintegrating 4 mg PO Q8H PRN (Reason: nausea and vomiting) 3 Days Qty: 10 0RF Referrals Follow up/Referrals: Provider,Referral, MD [Primary Care Provider] - See instructions Activity Restrictions/Add. Instructions Additional Instructions/Restrictions: You have been evaluated in the ED for your complaints. You may follow-up with your PCP in the next 3 to 5 days. Please return to ED for any new or worsening symptoms. I have written for antibiotics to treat for pneumonia. Please take this as prescribed. I have also written for steroids for you to take over the next 5 days which should assist with your symptoms and coughing. Please use albuterol inhaler as needed. Clinical Impressions Clinical Impression: Pneumonia, Cough Discharge ED Provider: Domo Coombs Adult HPI General Chief complaint: Upper Respiratory Infection Stated complaint: cough, vomiting Time Seen by Provider: 08/08/23 21:30 Mode of Arrival: Ambulatory Source of Information: Patient Limitations: No Limitations Description of Symptoms (Recalled from ER Triage Doc. by RN): Patient presented to the ED for 2 days of coughing, SOA, and dizziness. History of Present Illness HPI narrative: 53-year-old female with past medical history significant for COPD, bradycardia, presents today for evaluation of concerning significant coughing that has been present over the past several days. Cough has been nonproductive although she feels there is something that she needs to cough up. She has not had any fevers, chills, chest pain or shortness of breath. She states that she has not taken breathing treatments for her COPD in over a year. She does report that she is a current smoker. She denies any other symptoms at this time. Related Data Home Medications Medication Instructions Recorded Confirmed olanzapine 10 mg tablet 10 mg PO DAILY 04/13/23 04/13/23 Previous Rx's Medication Instructions Recorded tizanidine 2 mg capsule 2 mg PO Q8H PRN muscle spasticity 04/10/23 30 days #90 caps estradiol 2 mg tablet (Estrace) 2 mg PO DAILY #30 tabs 04/13/23 metronidazole 500 mg tablet 500 mg PO BID 7 days #14 tabs 04/13/23 ondansetron 4 mg disintegrating 4 mg PO Q8H PRN nausea and 06/13/23 tablet vomiting 3 days #10 tabs albuterol sulfate 90 mcg/actuation 2 inh inhalation Q6H PRN shortness 08/08/23 aerosol inhaler of breath or wheezing #8.5 grams amoxicillin 875 mg-potassium 1 tab PO BID 7 days #14 tabs 08/08/23 clavulanate 125 mg tablet prednisone 50 mg tablet 40 mg (0.8 x 50 mg) PO DAILY 5 08/08/23 days #4 tabs Allergies Allergy/AdvReac Type Severity Reaction Status Date / Time No Known Allergies Allergy Verified 04/13/23 13:49 [facility] Disclaimer: The information contained in this section may have been updated after the patient was seen, as this information can be updated by other users. 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) Smoking Status: Unknown if ever smoked second hand exposure: Yes alcohol intake: never substance use type: marijuana current occupational status: disabled Travel in the last 8 weeks: Inside the [place] housing: house number of children: 3 ROS Obtained: Yes All systems reviewed & no additional complaints except as documented Physical Exam General General appearance: alert and in no apparent distress Head Head exam: atraumatic and normocephalic Eye Eye exam: Present normal appearance, PERRL and EOMI ENT ENT exam: Present normal oropharynx and mucous membranes moist Neck Neck exam: Present full ROM; Absent meningismus Respiratory Respiratory exam: Absent respiratory distress, wheezes, stridor or accessory muscle use Cardiovascular Cardiovascular exam: Present normal rhythm Abdominal Exam Abdominal exam: Present soft; Absent distention, tenderness, guarding, rebound or rigidity Neurological Exam Neurological exam: Present alert, oriented X3 and CN II-XII intact; Absent motor sensory deficit Psychiatric Psychiatric exam: Present normal affect and normal mood Skin Skin exam: Present warm and dry Medical Decision Making Medical Records Medical records reviewed: Yes I reviewed the patient's medical records. Dariel Inquiry Pt receiving controlled substance: No Dariel was queried for this patient: No Vital Signs: 08/08/23 20:06 Temperature 98.4 F Temperature Source Oral Pulse Rate [Right Brachial] 67 Respiratory Rate 20 Blood Pressure [Right Arm] 112/50 L Blood Pressure Mean [Right Arm] 70 02 Sat by Pulse Oximetry 99 Oxygen Delivery Method Room Air Lab Data Lab Results 08/08/23 20:25: SARS-CoV-2 (PCR) Not detected, Influenza A Untype (PCR) Not detected, Influenza Type B (PCR) Not detected 08/08/23 22:25: VBG pH 7.44 H, VBG pCO2 32.7 L, VBG pO2 35.7, VBG HCO3 21.9 L, V BG Total CO2 22.9 L, VBG O2 Saturation 73.1 H, VBG Base Excess -2.2, VBG Lactic Acid 2.6 H 08/08/23 22:49: WBC 7.9, RBC 4.47, Hgb 13.8, Hct 40.9, MCV 91.4, MCH 30.9, MCHC 33.8, RDW 14.4, Plt Count 193, MPV 10.3, Neut % (Auto) 54.6, Lymph % (Auto) 38.4, Treasure % (Auto) 4.5, Eos % (Auto) 1.5, Baso % (Auto) 1.0, Neut # (Auto) 4.3, Lymph # (Auto) 3.0, [place] # (Auto) 0.4, Eos # (Auto) 0.1, Baso # (Auto) 0.1, Sodium 140, Potassium 3.9, Chloride 109 H, Carbon Dioxide 23, Anion Gap 11.9, BUN 14, Creatinine 0.80, Estimated Creat Clear 58, Estimated GFR 75, Est GFR ( Amer) 91, Glucose 70 L, Calcium 9.7, Total Bilirubin 0.6, AST 34, ALT 21, Alkaline Phosphatase 56, Total Protein 7.7, Albumin 4.5, Globulin 3.2, Albumin/Globulin Ratio 1.4 08/08/23 22:49 08/08/23 22:49 Orders (Tests/Meds): ED MEDICATIONS Generic Name Dose Route Start Last Admin Trade Name Freq PRN Reason Stop Dose Admin Albuterol/Ipratropium 2 puff 08/08/23 23:34 Combivent 20mcg/100mcg Respimat Inhaler IH 08/08/23 23:35 ONCE ONE Discontinued Medications Generic Name Dose Route Start Last Admin Trade Name Freq PRN Reason Stop Dose Admin Albuterol/Ipratropium 9 ml 08/08/23 22:23 Ipratropium/Albuterol 3 Ml Neb IH 08/08/23 22:24 ONCE ONE Prednisone 60 mg 08/08/23 23:30 08/08/23 23:33 Prednisone 20mg Tab PO 08/08/23 23:31 60 mg ONCE ONE Administration ORDERS Category Date Time Status Chest XR 2 view (NOT portable) [XR chest 2V] Stat Exams 08/08/23 21:19 Taken CBC w/Auto Diff [Complete Blood Count Auto Diff] Stat Lab 08/08/23 22:49 Completed CMP [Comprehensive Metabolic Panel] Stat Lab 08/08/23 22:49 Completed Rapid PCR Covid and Flu A/B Stat Lab 08/08/23 20:25 Completed VBG [Venous Blood Gas] Stat RT 08/08/23 22:25 Completed Medical Decision Narrative: 53-year-old female with past medical history significant for COPD, bradycardia, presents today for evaluation of concerning significant coughing that has been present over the past several days. Cough has been nonproductive although she feels there is something that she needs to cough up. She has not had any fevers, chills, chest pain or shortness of breath. She states that she has not taken breathing treatments for her COPD in over a year. She does report that she is a current smoker On assessment the patient was hemodynamically stable and in no acute distress. She was afebrile. Her chest was clear to auscultation bilaterally. She was moving air appropriately. She did have a significant cough on assessment. No peripheral edema. Ortho exam finds unremarkable differential diagnoses include admitted to viral syndrome, pneumonia, pleural effusion, COPD exacerbation, among others. Patient's lab workup today has been nonactionable. No elevation in WBC at 7.9. VBG does show a pH of 7.44 and a pCO2 of 32.7. Lactate of 2.6. Negative COVID and influenza swabs. Patient was given DuoNebs and on reassessment her coughing was significantly improved. Her chest x-ray did show findings concerning for a developing left lower lobe pneumonia. Given this, we will prescribe antibiotics and steroids to assist with patient's symptoms. She verbalized understanding and agreement with plan. Provided with return precautions and instructions concerning PCP follow- up. Subsequently discharged home hemodynamically stable and in no acute distress Critical Care Critical Care Time Critical Care Time: No
[2023-08-08 22:57] LABS: Basophils # 0.1 K/mm3 (0-0.2); Eosinophils # 0.1 K/mm3 (0.0-0.4); Eosinophils % 1.5 % (0.1-12.0); Hematocrit 40.9 % (37.0-47.0); Hemoglobin 13.8 g/dL (12.2-16.2); Lymphocytes % 38.4 % (10-50); Mean Corpuscular HGB Conc 33.8 g/dL (31.8-35.4); Mean Corpuscular Hemoglobin 30.9 pg (27.0-31.2); Mean Corpuscular Volume 91.4 fl (81-99); Mean Platelet Volume 10.3 fl (7.4-10.4); Monocytes # 0.4 K/mm3 (0.1-1.0); Monocytes % 4.5 % (1.7-9.3); Neutrophils # 4.3 K/mm3 (1.8-7.8); Neutrophils % 54.6 % (37.0-80.0); Platelet Count 193 K/mm3 (142-424); Red Blood Count 4.47 M/mm3 (4.20-5.40); Red Cell Distribution Width 14.4 % (11.5-17.5); White Blood Count 7.9 K/mm3 (4.8-10.8)
[2023-08-08 23:00] LABS: Chloride 109 mmol/L (98-107); Sodium 140 mmol/L (136-145)
[2023-08-08 23:01] LABS: Potassium 3.9 mmoL/L (3.5-5.1)
[2023-08-08 23:02] LABS: VBG Base Excess -2.2 mmol/L (-2.4-2.3); VBG HCO3 21.9 mmol/L (23-30); VBG Oxygen Saturation 73.1 % (50-70); VBG PCO2 32.7 mmol/L (35-51); VBG PH 7.44 mmol/L (7.31-7.41); VBG PO2 35.7 mmol/L (28-40); VBG Total CO2 22.9 mmol/L (23-27)
[2023-08-08 23:03] LABS: Alanine Aminotransferase 21 U/L (12-78); Albumin Level 4.5 g/dl (3.5-5.0); Albumin/Globulin Ratio 1.4 (1.1-1.8); Alkaline Phosphatase 56 U/L (38-126); Anion Gap 11.9 mEq/L (5-15); Aspartate Amino Transferase 34 U/L (14-36); Bilirubin,Total 0.6 mg/dl (0.2-1.3); Blood Urea Nitrogen 14 mg/dl (7-17); Carbon Dioxide 23 mmol/L (22.0-30.0); Creatinine Clearance Estimated 58 mL/min (50-200); Estimated Glomerular Filt Rate 75 ml/min (>60); GFR (African American) 91 ML/MIN (>60); Globulin 3.2 g/dL (1.3-3.2); Total Protein,Serum 7.7 g/dl (6.3-8.2)
[2023-08-08 23:03] LABS: Lactate Venous 2.6 mmol/L (0.4-2.0)
[2023-08-08 23:04] LABS: Calcium 9.7 mg/dl (8.4-10.2); Glucose 70 mg/dl (74-100)
[2023-08-08] MEDS: predniSONE 20MG TAB 60 MG PO (23:33)
[2023-08-08] MEDS: IPRATROPIUM/ALBUTEROL 3 ML NEB 9 ML IH (23:42)
[2023-08-08 23:44] VITALS: PULSE 66
[2023-08-09 00:14] VITALS: BP 119/64; PULSE 67; RESP 18; TEMP 36.9; O2SAT 99
== END 2023-08-09 00:15 | disposition home or self-care (01) ==
PROVIDERS: Emergency Provider Emergency Medicine
DX: J18.9 Pneumonia, unspecified organism (principal); R05.9 Cough, unspecified; J44.9 Chronic obstructive pulmonary disease, unspecified; F17.210 Nicotine dependence, cigarettes, uncomplicated
CPT/HCPCS: 71046; 80053; 82803; 85025; 87636; 99284; J7620

== ENCOUNTER 2023-08-11 18:05 | Emergency (ER) | payer MEDICAID, SELFPAY ==
[2023-08-11 18:06] VITALS: BP 149/70; PULSE 50; RESP 16; TEMP 36.6; O2SAT 96; BMI 17.9
--- NOTE | 2023-08-11 18:21 | ECG_ITS ---
APPROVED REPORT Exam: Resting ECG HR:46 bpm ECG Measurements Heart Rate 46 AXES NM 139 P 73 QRSd 80 QRS 72 QT 432 T 55 QTc 391 Conclusion SINUS BRADYCARDIA BORDERLINE ECG Electronically signed by : DEIDRE PAUL, 08/11/2023 19:59:33
--- NOTE | 2023-08-11 18:21 | XR_ITS ---
PROCEDURE INFORMATION: Exam: XR Chest Exam date and time: 08/11/2023 6:23 PM Age: 53 years old Clinical indication: Cough; Additional info: Cough, SOA TECHNIQUE: Imaging protocol: Radiologic exam of the chest. Views: 1 view. COMPARISON: CR XR CHEST 2V 08/08/2023 21:18 FINDINGS: Lungs: Stigmata of old granulomatous disease. Pleural spaces: Unremarkable. No pleural effusion. No pneumothorax. Heart/Mediastinum: Unremarkable. No cardiomegaly. Vasculature: Vascular calcifications. Bones/joints: Unremarkable. IMPRESSION: No acute findings.
--- NOTE | 2023-08-11 18:26 | ED_ITS ---
Discharge Plan Disposition Patient Disposition: Home, Self-Care Condition: Good Prescriptions Prescriptions: No Action tizanidine 2 mg capsule 2 mg PO Q8H PRN (Reason: muscle spasticity) 30 Days Qty: 90 2RF olanzapine 10 mg tablet 10 mg PO DAILY estradiol [Estrace] 2 mg tablet 2 mg PO DAILY Qty: 30 6RF metronidazole 500 mg tablet 500 mg PO BID 7 Days Qty: 14 1RF amoxicillin-pot clavulanate 875-125 mg tablet 1 tab PO BID 7 Days Qty: 14 0RF prednisone 50 mg tablet 40 mg PO DAILY 5 Days Qty: 4 0RF albuterol sulfate 90 mcg/actuation HFA aerosol inhaler 2 inh inhalation Q6H PRN (Reason: shortness of breath or wheezing) Qty: 8.5 0RF ondansetron 4 mg tablet,disintegrating 4 mg PO Q8H PRN (Reason: nausea and vomiting) 3 Days Qty: 10 0RF Referrals Follow up/Referrals: Provider,Referral, MD [Primary Care Provider] - See instructions Activity Restrictions/Add. Instructions Additional Instructions/Restrictions: You were evaluated in the emergency department today. Please follow-up closely with your primary care provider. Continue taking medications at home as prescribed. It may take several weeks before your cough resolves. Return to the emergency department for new or worsening symptoms. Clinical Impressions Clinical Impression: Acute exacerbation of chronic obstructive pulmonary disease Stand Alone Forms Stand Alone Forms: Work/School Release Instructions Patient Instructions: DI for Chronic Obstructive Pulmonary Disease, DI for Cough -- Adult Discharge ED Provider: [facility] HPI General Chief complaint: Shortness of Breath/Dyspnea Stated complaint: SOA pnue+ Time Seen by Provider: 08/11/23 18:14 History of Present Illness HPI narrative: This patient is a 53-year-old female with a history of substance abuse and COPD presenting to the emergency department for evaluation with concern for continued cough as well as tussive emesis in the setting of recent diagnosis of COPD exacerbation. She was seen here 08/08/2023 and prescribed antibiotics, steroids, and albuterol inhalers on medical record review. She reports compliance with this, but she states that she is afraid she is getting dehydrated because she coughs to the point of vomiting. She states she really only came in to see if she can get another breathing treatment, as she felt that it helped more than the albuterol inhalers. No other concerns noted at this time. Related Data Home Medications Medication Instructions Recorded Confirmed olanzapine 10 mg tablet 10 mg PO DAILY 04/13/23 04/13/23 Previous Rx's Medication Instructions Recorded tizanidine 2 mg capsule 2 mg PO Q8H PRN muscle spasticity 04/10/23 30 days #90 caps estradiol 2 mg tablet (Estrace) 2 mg PO DAILY #30 tabs 04/13/23 metronidazole 500 mg tablet 500 mg PO BID 7 days #14 tabs 04/13/23 ondansetron 4 mg disintegrating 4 mg PO Q8H PRN nausea and 06/13/23 tablet vomiting 3 days #10 tabs albuterol sulfate 90 mcg/actuation 2 inh inhalation Q6H PRN shortness 08/08/23 aerosol inhaler of breath or wheezing #8.5 grams amoxicillin 875 mg-potassium 1 tab PO BID 7 days #14 tabs 08/08/23 clavulanate 125 mg tablet prednisone 50 mg tablet 40 mg (0.8 x 50 mg) PO DAILY 5 08/08/23 days #4 tabs Allergies Allergy/AdvReac Type Severity Reaction Status Date / Time No Known Allergies Allergy Verified 04/13/23 13:49 [facility] Disclaimer: The information contained in this section may have been updated after the patient was seen, as this information can be updated by other users. 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 Ovarian cancer Schizophrenia COPD (chronic obstructive pulmonary disease) Syncope Palpitations Chest pain Surgical History H/O wisdom tooth extraction H/O: hysterectomy Family History Other No significant family history Social History Smoking Status: Current every day smoker tobacco type: cigarettes packs per day: 1 second hand exposure: Yes alcohol intake: never substance use type: marijuana current occupational status: disabled Travel in the last 8 weeks: Inside the [place] housing: house number of children: 3 ROS Obtained: Yes All systems reviewed & no additional complaints except as documented Physical Exam General General appearance: alert and in no apparent distress Head Head exam: atraumatic and normocephalic Eye Eye exam: Present normal appearance, PERRL and EOMI ENT ENT exam: Present normal exam, normal oropharynx, mucous membranes moist and normal external ear exam Neck Neck exam: Present normal inspection, full ROM and trachea midline; Absent tenderness Chest Chest inspection: Present normal inspection and symmetric chest wall rise; Absent tenderness Respiratory Respiratory exam: Present normal lung sounds bilaterally; Absent respiratory distress, wheezes, stridor or accessory muscle use Cardiovascular Cardiovascular exam: Present regular rate and normal rhythm Abdominal Exam Abdominal exam: Present soft; Absent distention, tenderness or guarding Extremities Exam Extremities exam: Present normal inspection, full ROM and normal capillary refill; Absent tenderness or edema Back Exam Back exam: Present normal inspection and full ROM; Absent tenderness Neurological Exam Neurological exam: Present alert, oriented X3, CN II-XII intact and normal gait; Absent motor sensory deficit Psychiatric Psychiatric exam: Present normal affect and normal mood Skin Skin exam: Present warm and dry Medical Decision Making Medical Records Medical records reviewed: Yes I reviewed the patient's medical records. Dariel Inquiry Pt receiving controlled substance: No Vital Signs: 08/11/23 18:06 Temperature 98 F Temperature Source Oral Pulse Rate [Radial] 50 L Respiratory Rate 16 Blood Pressure [Right Arm] 149/70 H Blood Pressure Mean [Right Arm] 96 Blood Pressure Source [Right Arm] Automatic Cuff Blood Pressure Position [Right Arm] Sitting 02 Sat by Pulse Oximetry 96 Oxygen Delivery Method Room Air Lab Data Lab results reviewed: Yes I reviewed the patient's lab results. Lab Results 08/11/23 18:25: WBC 9.0, RBC 4.09 L, Hgb 12.4, Hct 38.4, MCV 94.0, MCH 30.5, MCHC 32.4, RDW 14.5, Plt Count 179, MPV 9.5, Neut % (Auto) 79.1, Lymph % (Auto) 15.5, [place] % (Auto) 4.1, Eos % (Auto) 1.0, Baso % (Auto) 0.2, Neut # (Auto) 7.1, Lymph # (Auto) 1.4, [place] # (Auto) 0.4, Eos # (Auto) 0.1, Baso # (Auto) 0.0, Sodium 142, Potassium 3.6, Chloride 109 H, Carbon Dioxide 26, Anion Gap 10.6, B UN 23 H D, Creatinine 0.80, Estimated Creat Clear 54, Estimated GFR 75, Est GFR ( Amer) 91, Glucose 93, Calcium 9.7, Total Bilirubin 0.4, AST 52 H D, ALT 59 D, Alkaline Phosphatase 67, Total Protein 7.1, Albumin 4.4, Globulin 2.7, Albumin/Globulin Ratio 1.6 08/11/23 18:25 08/11/23 18:25 Orders (Tests/Meds): ED MEDICATIONS Generic Name Dose Route Start Last Admin Trade Name Freq PRN Reason Stop Dose Admin Lactated Ringer's 1,000 mls @ 999 mls/hr 08/11/23 18:22 08/11/23 18:36 Lactated Ringer's 1000 Ml Bag IV 08/11/23 19:22 999 mls/hr .Q1H1M ONE Administration Discontinued Medications Generic Name Dose Route Start Last Admin Trade Name Freq PRN Reason Stop Dose Admin Albuterol/Ipratropium 3 ml 08/11/23 18:22 08/11/23 18:36 Ipratropium/Albuterol 3 Ml Neb IH 08/11/23 18:23 3 ml ONCE ONE Administration Ondansetron HCl 4 mg 08/11/23 18:22 08/11/23 18:36 Ondansetron 4mg/2ml Vial IV 08/11/23 18:23 4 mg ONCE ONE Administration ORDERS Category Date Time Status CXR --portable [XR chest portable] Stat Exams 08/11/23 18:21 Completed Complete Blood Count Auto Diff Stat Lab 08/11/23 18:25 Completed Comprehensive Metabolic Panel Stat Lab 08/11/23 18:25 Completed ECG Data Tracing #1: I reviewed this ECG and interpreted as documented below: Sinus bradycardia with a ventricular rate of [address] changes concerning for ischemia ECG initial impression date: 08/11/23 ECG initial impression time: 18:23 Medical Decision Narrative: In summary, this patient is a 53-year-old female presenting to the Emergency Department for evaluation of continued cough and shortness of breath in the setting of recent diagnosis of COPD exacerbation 3 days ago. Differential diagnoses considered include but are not limited to COPD exacerbation, respiratory failure, pneumonia, dehydration. Ruling out the most morbid conditions drove assessment. It should be noted patient's history includes COPD which is not at goal therapy. This complicates all aspects of care by increasing patient's risk for morbidity. I reviewed patient's past medical records and noted evaluation here 3 days ago as per HPI. On exam, the patient is resting comfortably in bed with no increased work of breathing. Vitals are normal on cardiac telemetry with the exception of mild sinus bradycardia. Oxygen saturation, work of breathing, and blood pressure are normal. Workup included CBC and CMP as well as chest x-ray and EKG. EKG is reassuring. Patient was given a DuoNeb, as she states that it makes her feel much better. She was also given a bolus of IV fluids as well as IV Zofran.. I independently interpreted x-ray prior to the radiologist read and noted no acute focal consolidation. Please see their read for final interpretation. Labs were obtained that demonstrated no acutely concerning abnormalities. On reassessment, patient is resting comfortably with no increased work of breathing and normal vital signs on cardiac telemetry. Given this, feel that she is appropriate for discharge home with instructions for supportive management and to continue taking her prescriptions that were already given to her. She was given strict return precautions and instructions for close outpatient follow-up. She was discharged after all questions were answered. Critical Care Critical Care Time Critical Care Time: No
[2023-08-11 18:33] LABS: Basophils % 0.2 % (0.1-2.0); Eosinophils # 0.1 K/mm3 (0.0-0.4); Hematocrit 38.4 % (37.0-47.0); Hemoglobin 12.4 g/dL (12.2-16.2); Lymphocytes # 1.4 K/mm3 (0.7-4.5); Lymphocytes % 15.5 % (10-50); Mean Corpuscular HGB Conc 32.4 g/dL (31.8-35.4); Mean Corpuscular Hemoglobin 30.5 pg (27.0-31.2); Mean Platelet Volume 9.5 fl (7.4-10.4); Monocytes # 0.4 K/mm3 (0.1-1.0); Monocytes % 4.1 % (1.7-9.3); Neutrophils # 7.1 K/mm3 (1.8-7.8); Neutrophils % 79.1 % (37.0-80.0); Platelet Count 179 K/mm3 (142-424); Red Blood Count 4.09 M/mm3 (4.20-5.40); Red Cell Distribution Width 14.5 % (11.5-17.5)
[2023-08-11] MEDS: IPRATROPIUM/ALBUTEROL 3 ML NEB IH (18:36)
[2023-08-11] MEDS: ONDANSETRON 4MG/2ML VIAL 4 MG IV (18:36)
[2023-08-11] MEDS: LACTATED RINGERS 1000ML 1,000 ML 999 ML IV (18:36)
[2023-08-11 18:50] LABS: Chloride 109 mmol/L (98-107); Potassium 3.6 mmoL/L (3.5-5.1); Sodium 142 mmol/L (136-145)
[2023-08-11 18:52] LABS: Blood Urea Nitrogen 23 mg/dl (7-17); Creatinine Clearance Estimated 54 mL/min (50-200); Estimated Glomerular Filt Rate 75 ml/min (>60); GFR (African American) 91 ML/MIN (>60)
[2023-08-11 18:53] LABS: Alanine Aminotransferase 59 U/L (12-78); Albumin Level 4.4 g/dl (3.5-5.0); Albumin/Globulin Ratio 1.6 (1.1-1.8); Alkaline Phosphatase 67 U/L (38-126); Anion Gap 10.6 mEq/L (5-15); Aspartate Amino Transferase 52 U/L (14-36); Bilirubin,Total 0.4 mg/dl (0.2-1.3); Calcium 9.7 mg/dl (8.4-10.2); Carbon Dioxide 26 mmol/L (22.0-30.0); Globulin 2.7 g/dL (1.3-3.2); Glucose 93 mg/dl (74-100); Total Protein,Serum 7.1 g/dl (6.3-8.2)
--- NOTE | 2023-08-11 19:08 | PC.NURSE ---
Rounded on pt. No needs voiced at this time.
[2023-08-11 19:21] VITALS: BP 129/58; PULSE 48; RESP 16; TEMP 36.6; O2SAT 100
== END 2023-08-11 19:39 | disposition home or self-care (01) ==
PROVIDERS: Emergency Provider Emergency Medicine
DX: J44.1 Chronic obstructive pulmonary disease with (acute) exacerbation (principal); F17.210 Nicotine dependence, cigarettes, uncomplicated; R00.1 Bradycardia, unspecified; R05.9 Cough, unspecified; R11.11 Vomiting without nausea
CPT/HCPCS: 71045; 80053; 85025; 93005; 96361; 96374; 99284; J2405; J7120; J7620

== ENCOUNTER 2023-09-08 07:01 | Day surgery (SDC) | payer MEDICAID, SELFPAY ==
[2023-09-08 08:15] VITALS: BP 120/56; PULSE 48; RESP 18; TEMP 36.2; O2SAT 99
[2023-09-08] MEDS: PHENYLEPHRINE 2.5% OPHTH SOLN 2ML OP ×3 (08:15→08:25)
[2023-09-08] MEDS: TETRACAINE 0.5% OPTH SOL 15ML OP ×4 (08:15→08:42)
[2023-09-08] MEDS: CYCLOPENTOLATE 2% OPHTH SOLN 2ML BOTTLE OP ×3 (08:15→08:25)
[2023-09-08 08:21] VITALS: BMI 19.1
[2023-09-08 08:35] VITALS: BP 120/56; PULSE 48; RESP 18; TEMP 36.2; O2SAT 99
[2023-09-08 09:34] VITALS: BP 106/51; PULSE 40; RESP 16; TEMP 36.4; O2SAT 99
[2023-09-08] MEDS: LIDOCAINE 1% PF 2ML AMPULE 2 ML IJ (09:34)
[2023-09-08] MEDS: TIMOLOL 0.5% OPTH SOLN 5ML OP (09:35)
[2023-09-08] MEDS: TOBRAMYCIN/DEX OPTH SUSP 2.5ML OP (09:35)
[2023-09-08 09:39] VITALS: BP 112/61; PULSE 41; RESP 16; TEMP 36.4; O2SAT 98
[2023-09-08 09:44] VITALS: BP 114/53; PULSE 41; RESP 16; TEMP 36.4; O2SAT 99
[2023-09-08 09:50] VITALS: BP 115/62; PULSE 72; RESP 16; TEMP 36.4; O2SAT 99
--- NOTE | 2023-09-08 12:07 | P.PCN_ITS ---
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 The patient reports that this interferes with ADLs such as reading, watching TV and/or driving or the vision is like looking through a foggy haze and is very troubling. The patient was examined and found to have a visually significant cataract with best corrected vision of [20/400] by refraction and/or glare testing. Treatment options, risks and benefits were explained and the patient elected to have cataract surgery in an attempt to improve their vision. The patient had the eye anesthetized with topical tetracaine, the eye ways prepped and draped in the usual fashion for cataract surgery. A paracentesis and a temporal keratotomy were made. 0.2cc of 1% lidocaine PF was placed into the anterior chamber. And aqueous/viscoelastic exchange was done and a 360 degree capsulorexis was performed. Through hydrodissection and delineation with BSS on a cannula was done. The lens nucleus was phecoemulsified with CDE of [7.73]. Residual cortical material was removed using automated I&A The capsular bag was deepened with viscoelastica and a PCIOL was placed in the capsular bag with good centration and stability. Residual viscoelastic was removed using automated I&A. The keratotomy incision was hydrated with BSS on a cannula. The wound were checked and found to be water tight. IOP was checked digitally and adjusted as needed so as not to be too high. 1 drop of timolol 0.5%, ofloxacin, prednisolone acetate and ketorolac was instilled and eye shield taped over the eye. The patient was taken to recovery in good condition and will be seen postoperatively.
== END 2023-09-08 10:00 | disposition home or self-care (01) ==
PROVIDERS: Visit Provider Ophthalmology
PROC: (CPT 66984; principal; 2023-09-08 09:30)
DX: H25.12 Age-related nuclear cataract, left eye (principal)
CPT/HCPCS: 66984; V2632

== ENCOUNTER 2023-10-27 19:43 | Outpatient (CLI) | payer MEDICAID, SELFPAY | END 2023-10-27 23:59 | disposition home or self-care (01) | LOC: LAB.DROPOF 19:44 | PROVIDERS: PCP Internal Medicine; Visit Provider Internal Medicine | DX: Z02.9 Encounter for administrative examinations, unspecified (principal) ==

== ENCOUNTER 2023-10-27 19:46 | Outpatient (CLI) | payer MEDICAID, SELFPAY ==
[2023-10-27 21:53] LABS: Basophils # 0.1 K/mm3 (0-0.2); Eosinophils # 0.3 K/mm3 (0.0-0.4); Eosinophils % 4.9 % (0.1-12.0); Hematocrit 47.3 % (37.0-47.0); Hemoglobin 14.5 g/dL (12.2-16.2); Lymphocytes % 30.6 % (10-50); Mean Corpuscular HGB Conc 30.7 g/dL (31.8-35.4); Mean Corpuscular Hemoglobin 30.4 pg (27.0-31.2); Mean Corpuscular Volume 98.9 fl (81-99); Mean Platelet Volume 11.8 fl (7.4-10.4); Monocytes # 0.4 K/mm3 (0.1-1.0); Neutrophils # 3.7 K/mm3 (1.8-7.8); Neutrophils % 57.5 % (37.0-80.0); Platelet Count 226 K/mm3 (142-424); Red Blood Count 4.78 M/mm3 (4.20-5.40); Red Cell Distribution Width 14.8 % (11.5-17.5); White Blood Count 6.4 K/mm3 (4.8-10.8)
[2023-10-27 22:03] LABS: Hemoglobin A1C 5.4 % (4.0-6.0)
[2023-10-27 22:08] LABS: Creatinine,Urine Random 128 mg/dL (Not Estab.)
[2023-10-27 22:15] LABS: Alanine Aminotransferase 19 U/L (12-78); Albumin Level 4.2 g/dl (3.5-5.0); Albumin/Globulin Ratio 1.4 (1.1-1.8); Alkaline Phosphatase 74 U/L (38-126); Anion Gap 11.1 mEq/L (5-15); Aspartate Amino Transferase 25 U/L (14-36); Bilirubin,Total 0.4 mg/dl (0.2-1.3); Blood Urea Nitrogen 14 mg/dl (7-17); Calcium 9.8 mg/dl (8.4-10.2); Carbon Dioxide 27 mmol/L (22.0-30.0); Chloride 108 mmol/L (98-107); Chol/HDL Ratio 4.2 (1-3.5); Cholesterol 236 mg/dl (140-200); Estimated Glomerular Filt Rate 75 ml/min (>60); GFR (African American) 91 ML/MIN (>60); Globulin 2.9 g/dL (1.3-3.2); Glucose 94 mg/dl (74-100); HDL Cholesterol 56 mg/dl (40-60); Potassium 5.1 mmoL/L (3.5-5.1); Sodium 141 mmol/L (136-145); Total Protein,Serum 7.1 g/dl (6.3-8.2); Triglycerides 132 mg/dl (30-150); VLDL Cholesterol 26 mg/dL (0-40)
[2023-10-27 22:26] LABS: Direct LDL Cholesterol 132.87 mg/dL (100-129)
[2023-10-27 22:43] LABS: Microalbumin < 6.000 mg/L (0-16.7)
[2023-10-27 22:46] LABS: Thyroid Stimulating Hormone 3.35 uIU/mL (0.465-4.68)
[2023-10-28 09:26] LABS: HIV (1&2) Antibody Rapid PRELIMINARY POSITIVE (NONREACTIVE)
[2023-10-29 08:38] LABS: HBsAg Screen Negative (Negative); HCV Ab Non Reactive (Non Reactive); Hep A Ab, IGM Negative (Negative); Hep B Core Ab, IgM Negative (Negative)
[2023-10-29 14:03] LABS: Miscellaneous Test SCANNED IMAGE
== END 2023-10-27 23:59 | disposition home or self-care (01) ==
LOC: LAB.DROPOF 19:47
PROVIDERS: PCP Internal Medicine; Visit Provider Internal Medicine
DX: J44.1 Chronic obstructive pulmonary disease with (acute) exacerbation (principal); Z72.51 High risk heterosexual behavior; Z13.1 Encounter for screening for diabetes mellitus; R53.83 Other fatigue; R01.1 Cardiac murmur, unspecified; R73.03 Prediabetes; Z72.0 Tobacco use; R51.9 Headache, unspecified
CPT/HCPCS: 80050; 80053; 80061; 80074; 82043; 82570; 83036; 84443; 85025; 87389

== ENCOUNTER 2023-11-18 11:45 | Emergency (ER) | payer MEDICAID, SELFPAY ==
[2023-11-18] VITALS (7 sets, daily range): BP systolic 107–140; BP diastolic 38–78; PULSE 41–51; RESP 12–16; TEMP 36.5–36.7; O2SAT 97–100; BMI 20.7
--- NOTE | 2023-11-18 11:49 | ECG_ITS ---
APPROVED REPORT Exam: Resting ECG HR:44 bpm ECG Measurements Heart Rate [address] 145 P 55 QRSd 81 QRS 66 QT 440 T 62 QTc 391 Conclusion SINUS BRADYCARDIA BORDERLINE ECG Electronically signed by : SILVIA DOMINGUEZ, 11/18/2023 14:38:47
--- NOTE | 2023-11-18 12:30 | CT_ITS ---
FINAL REPORT TECHNIQUE: The patient was injected with IV contrast. Axial images were obtained through the chest in a PE protocol. 3-D reconstruction images were also performed. Individualized dose reduction techniques using automated exposure control or adjustment of the MA and/or KV according to patient's size were employed. CLINICAL HISTORY: CP to back and LUE COMPARISON: 12/19/2022 FINDINGS: Mediastinal vasculature is adequately opacified. No pulmonary artery filling defects are identified to suggest PE. There is no aortic dissection. There is no axillary adenopathy. There is no hilar or mediastinal adenopathy. The heart size is normal. There is no pericardial or pleural effusion. Limited images of the upper abdomen are unremarkable. There is a calcified granuloma in the right middle lobe. There is a peripheral noncalcified nodule at the left base measuring 5 mm well seen on image 66 of series 7. IMPRESSION: No pulmonary embolus or dissection. Noncalcified left base nodule. Recommend 1 year follow-up as per Fleischner criteria. As per Reviewed, Interpreted and Dictated by Frankie Guzmán MD Transcribed by Marissa Villarreal Authenticated and [facility]
[2023-11-18 12:31] LABS: Albumin Level 4.7 g/dl (3.5-5.0); Chloride 104 mmol/L (98-107); Potassium 4.5 mmoL/L (3.5-5.1); Sodium 140 mmol/L (136-145)
--- NOTE | 2023-11-18 12:31 | PC.NURSE ---
dr pickering at bedside
--- NOTE | 2023-11-18 12:32 | HMH.EDCP ---
Discharge Plan Disposition Patient Disposition: Home, Self-Care Chief Complaint: Chest Pain Prescriptions Prescriptions: No Action varenicline [Chantix Starting Month Box] 0.5 mg (11)- 1 mg (42) tablets,dose pack See Rx Instructions PO PER PKG DIR Qty: 53 0RF Rx Instructions: PO PER PKG DIR metronidazole 500 mg tablet 500 mg PO BID 7 Days Qty: 14 1RF atorvastatin 10 mg tablet 10 mg PO DAILY Qty: 30 2RF Referrals Follow up/Referrals: Rob Guevara DO [Primary Care Provider] - See instructions Elie Valerio MD [Staff Physician] - See instructions Activity Restrictions/Add. Instructions Additional Instructions/Restrictions: At this time it was felt you are safe to be discharged home. If new or worsening symptoms please do not hesitate to return the emergency department. Please call and schedule an appointment with Dr. Valerio as soon as you are able. Clinical Impressions Clinical Impression: Chest pain, Incidental pulmonary nodule, Tingling Print Language Print Language: Kiswahili Discharge ED Provider: Ollie Velázquez General Chief Complaint: Chest Pain Stated Complaint: cp Time Seen by Provider: 11/18/23 11:59 Mode of Arrival: Ambulatory Source of Information: Patient Limitations: No Limitations Description of Symptoms (Recalled from ER Triage Doc. by RN): PT PRESENTS TO THE ER FOR SUBSTERNAL CHEST PAIN THAT RADIATES DOWN HER L ARM, EXPLAINS IT AN INTERMITTENT PRESSURE RATING IT 7/10 CURRENTLY, STATES THE PAIN STARTED LAST NIGHT BUT GOT INCREASINGLY WORSE AFTER GOING TO WORK THIS AM, HX OF MITRAL VALUE PROLAPSE, BRADYCARDIA, CAROTID STENOSIS, AND A HEART MURMUR History of Present Illness HPI narrative: Patient is a 53-year-old female with past medical history of heart murmur, chronic bradycardia, no previous stents, currently on statin therapy, mitral valve prolapse who presents emergency department for evaluation of chest pain. Onset was acute, occurring last night, substernal radiating through to her back with pain and numbness tingling down her left upper extremity. No abdominal pain, no vomiting, no cough. No other acute complaints at this time. Related Data Previous Rx's ?Medication ?Instructions ?Recorded metronidazole 500 mg tablet 500 mg PO BID 7 days #14 tabs 10/12/23 varenicline 0.5 mg (11)-1 mg (42) See Rx Instructions PO PER PKG DIR 10/15/23 tablets in a dose pack (Chantix #53 tabs Starting Month Box) atorvastatin 10 mg tablet 10 mg PO DAILY #30 tabs 10/28/23 Allergies Allergy/AdvReac Type Severity Reaction Status Date / Time No Known Allergies Allergy Verified 10/27/23 08:40 [facility] Disclaimer: The information contained in this section may have been updated after the patient was seen, as this information can be updated by other users. 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 (Updated 11/18/23 @ 15:21 by Ollie Velázquez MD) Ovarian cancer Schizophrenia COPD (chronic obstructive pulmonary disease) Syncope Palpitations Chest pain Surgical History (Updated 10/15/23 @ 09:39 by Maria R Orellana MA) History of eye surgery H/O wisdom tooth extraction H/O: hysterectomy Family History Other No significant family history Social History (Updated 10/15/23 @ 09:40 by Maria R Orellana MA) Smoking Status: Current every day smoker tobacco type: cigarettes packs per day: 1 quit status: considering quitting second hand exposure: Yes alcohol intake: never substance use type: marijuana current occupational status: disabled Travel in the last 8 weeks: None housing: house number of children: 3 caffeine: Yes Other 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 Have you received the Flu Vaccine for this season: No Have you received the Pneumonia Vaccine: No ROS Obtained: Yes Systems reviewed as appropriate & no additional complaints except as documented Physical Exam General General appearance: alert and in no apparent distress Head Head exam: atraumatic and normocephalic Eye Eye exam: Present PERRL ENT ENT exam: Present mucous membranes moist Neck Neck exam: Present normal inspection Chest Chest inspection: Present normal inspection and symmetric chest wall rise Respiratory Respiratory exam: Present normal lung sounds bilaterally; Absent respiratory distress Cardiovascular Cardiovascular exam: Present regular rate and normal rhythm Abdominal Exam Abdominal exam: Present soft; Absent tenderness Extremities Exam Extremities exam: Present normal inspection and other (Palpable bilateral radial pulses 2+. Sensation intact distally left upper extremity.) Neurological Exam Neurological exam: Present alert and CN II-XII intact Psychiatric Psychiatric exam: Present normal affect Skin Skin exam: Present warm and dry HEART Score HEART Score HEART Score assessment performed?: Yes History (anamnesis): Highly suspicious ECG: Non-specific disturbance Age: 45-65 years Risk factors: 1-2 risk factors Troponin: </= normal limit HEART Score: 5 Critical Care Critical Care Time Critical Care Time: No Medical Decision Making Dariel Inquiry Pt receiving controlled substance: No Vital Signs Vital Signs: 11/18/23 11:46 11/18/23 12:15 11/18/23 13:00 Temperature 97.7 F Temperature Source Oral Pulse Rate 42 L 41 L Pulse Rate [Left Radial] 51 L Respiratory Rate 16 16 Blood Pressure 120/56 L Blood Pressure [Right Arm] 140/78 Blood Pressure Mean [Right Arm] 98 Blood Pressure Source [Right Arm] Automatic Cuff Blood Pressure Position [Right Arm] Sitting 02 Sat by Pulse Oximetry 100 97 Oxygen Delivery Method Room Air 11/18/23 13:30 11/18/23 14:00 Temperature Temperature Source Pulse Rate 44 L Pulse Rate [Left Radial] Respiratory Rate 12 12 Blood Pressure 127/55 L 119/51 L Blood Pressure [Right Arm] Blood Pressure Mean [Right Arm] Blood Pressure Source [Right Arm] Blood Pressure Position [Right Arm] 02 Sat by Pulse Oximetry 99 Oxygen Delivery Method Lab Data Labs: Lab Results 11/18/23 11:55: WBC 6.0, RBC 4.61, Hgb 14.3, Hct 44.3, MCV 96.2, MCH 31.1, MCHC 32.3, RDW 14.5, Plt Count 196, MPV 9.6, Neut % (Auto) 61.6, Lymph % (Auto) 30.2, [place] % (Auto) 5.2, Eos % (Auto) 2.7, Baso % (Auto) 0.4, Neut # (Auto) 3.7, Lymph # (Auto) 1.8, [place] # (Auto) 0.3, Eos # (Auto) 0.2, Baso # (Auto) 0.0, Sodium 140, Potassium 4.5, Chloride 104, Carbon Dioxide 29, Anion Gap 11.5, BUN 11, Creatinine 0.70, Estimated Creat Clear 71, Estimated GFR 88, Est GFR ( Amer) 106, Glucose 85, Calcium 10.1, Total Bilirubin 0.8, AST 35, ALT 29, Alkaline Phosphatase 81, Troponin I < 0.01, Total Protein 7.7, Albumin 4.7, Globulin 3.0, Albumin/Globulin Ratio 1.6, HIV 1&2 Antibody Rapid Nonreactive 11/18/23 14:00: Troponin I < 0.01 11/18/23 11:55 11/18/23 11:55 Response Orders (Tests/Meds): ED MEDICATIONS Generic Name Dose Route Start Last Admin Trade Name Amparo PRN Reason Stop Dose Admin Nitroglycerin 0.4 mg 11/18/23 12:30 Nitroglycerin 0.4mg Sl Tablet SL 12/18/23 12:29 Q5MINP PRN Chest Pain Discontinued Medications Generic Name Dose Route Start Last Admin Trade Name Amparo PRN Reason Stop Dose Admin Aspirin 324 mg 11/18/23 12:30 11/18/23 12:57 Aspirin 81mg Chewable Tablet PO 11/18/23 12:31 324 mg ONCE ONE Administration Iopamidol 80 ml 11/18/23 12:46 11/18/23 12:47 Iopamidol-370 (76%);100ml Bottle IV 11/18/23 12:47 80 ml ONCE ONE Administration Morphine Sulfate 2 mg 11/18/23 12:30 11/18/23 12:57 Morphine 2mg/Ml Syringe IV 11/18/23 12:31 2 mg ONCE ONE Administration Ondansetron HCl 4 mg 11/18/23 12:56 11/18/23 12:57 Ondansetron 4mg/2ml Vial IV 11/18/23 12:57 4 mg ONCE ONE Administration Sodium Chloride 50 ml 11/18/23 12:46 11/18/23 12:47 0.9 % Sodium Chloride 50 Ml Vial IV 11/18/23 12:47 50 ml ONCE ONE Administration Sodium Chloride 10 ml 11/18/23 12:46 11/18/23 12:47 Sodium Chloride 0.9% 10ml Syr (Rad Only) IV 11/18/23 12:47 10 ml ONCE ONE Administration ORDERS Category Date Time Status CT angio chest - dissection Stat Cat Scan 11/18/23 12:30 Completed Complete Blood Count Auto Diff Stat Lab 11/18/23 11:55 Completed Comprehensive Metabolic Panel Stat Lab 11/18/23 11:55 Completed HIV (1&2) Antibody Rapid Stat Lab 11/18/23 11:55 Completed Hep C Ab with Reflex to RNA Stat Lab 11/18/23 11:55 Received Troponin I Q3H Lab 11/18/23 14:00 Completed Troponin I Q3H Lab 11/18/23 18:30 Ordered Troponin I Stat Lab 11/18/23 11:55 Completed ECG Data Tracing #1: ECG Narrative: Independently interpreted by me rate is 44, rhythm is regular, axis is normal, no ST elevation in anatomical contiguous leads, QTc 391. MDM Narrative Medical Decision Narrative: In summary patient is a 53-year-old female past medical history described above presents emergency department for evaluation of chest pain. Patient is hemodynamically stable nontoxic-appearing upon arrival, afebrile. Differential diagnosis includes ACS, aortic dissection, noncardiac chest pain, among others. Workup will be conducted with hematologic labs, EKG, serial troponins, CTA chest. Initial inventions include aspirin, morphine, nitroglycerin. Initial workup reviewed by me, hematologic labs are remarkable for no leukocytosis, no RAJ or critical electrolyte abnormality. Serial troponins are undetectably low. CTA chest shows no evidence of PE or dissection, noncalcified left base nodule for which outpatient surveillance in 1 year was recommended. These findings were relayed to the patient at bedside and upon repeat evaluation patient had total resolution of symptoms and was resting comfortably in bed tolerating p.o. Given this patient is appropriate for outpatient management at this time will be discharged with rapid cardiology follow-up was given multiple return precautions verbalized understanding.
[2023-11-18 12:34] LABS: Alanine Aminotransferase 29 U/L (12-78); Albumin/Globulin Ratio 1.6 (1.1-1.8); Alkaline Phosphatase 81 U/L (38-126); Anion Gap 11.5 mEq/L (5-15); Aspartate Amino Transferase 35 U/L (14-36); Basophils % 0.4 % (0.1-2.0); Bilirubin,Total 0.8 mg/dl (0.2-1.3); Blood Urea Nitrogen 11 mg/dl (7-17); Calcium 10.1 mg/dl (8.4-10.2); Carbon Dioxide 29 mmol/L (22.0-30.0); Creatinine Clearance Estimated 71 mL/min (50-200); Eosinophils # 0.2 K/mm3 (0.0-0.4); Eosinophils % 2.7 % (0.1-12.0); Estimated Glomerular Filt Rate 88 ml/min (>60); GFR (African American) 106 ML/MIN (>60); Glucose 85 mg/dl (74-100); Hematocrit 44.3 % (37.0-47.0); Hemoglobin 14.3 g/dL (12.2-16.2); Lymphocytes # 1.8 K/mm3 (0.7-4.5); Lymphocytes % 30.2 % (10-50); Mean Corpuscular HGB Conc 32.3 g/dL (31.8-35.4); Mean Corpuscular Hemoglobin 31.1 pg (27.0-31.2); Mean Corpuscular Volume 96.2 fl (81-99); Mean Platelet Volume 9.6 fl (7.4-10.4); Monocytes # 0.3 K/mm3 (0.1-1.0); Monocytes % 5.2 % (1.7-9.3); Neutrophils # 3.7 K/mm3 (1.8-7.8); Neutrophils % 61.6 % (37.0-80.0); Platelet Count 196 K/mm3 (142-424); Red Blood Count 4.61 M/mm3 (4.20-5.40); Red Cell Distribution Width 14.5 % (11.5-17.5); Total Protein,Serum 7.7 g/dl (6.3-8.2)
--- NOTE | 2023-11-18 12:41 | PC.NURSE ---
Pt out of room with Rad for CT
[2023-11-18 12:46] LABS: Troponin I < 0.01 ng/ml (0.00-0.034)
[2023-11-18] MEDS: 0.9 % SODIUM CHLORIDE 50 ML VIAL IV (12:47)
[2023-11-18] MEDS: SODIUM CHLORIDE 0.9% 10ML SYR (RAD ONLY) 10 ML IV (12:47)
[2023-11-18] MEDS: IOPAMIDOL-370 (76%);100ML BOTTLE 80 ML IV (12:47)
--- NOTE | 2023-11-18 12:48 | PC.NURSE ---
pt to ct
[2023-11-18] MEDS: ASPIRIN 81MG CHEWABLE TABLET 324 MG PO (12:57)
[2023-11-18] MEDS: ONDANSETRON 4MG/2ML VIAL 4 MG IV (12:57)
[2023-11-18] MEDS: MORPHINE 2MG/ML SYRINGE 2 MG IV (12:57)
--- NOTE | 2023-11-18 13:23 | PC.NURSE ---
PT PROVIDED SANDWICH CHIPS AND DRINK. NO FURTHER NEEDS AT THIS TIME. CALL LIGHT WITHIN REACH
--- NOTE | 2023-11-18 14:00 | PC.NURSE ---
REPEAT TROP SENT, LAB NOTIFIED
[2023-11-18 14:34] LABS: Troponin I < 0.01 ng/ml (0.00-0.034)
[2023-11-18 14:45] LABS: HIV (1&2) Antibody Rapid NONREACTIVE (NONREACTIVE)
[2023-11-19 05:22] LABS: HCV Ab Non Reactive (Non Reactive)
== END 2023-11-18 15:25 | disposition home or self-care (01) ==
PROVIDERS: Emergency Provider Emergency Medicine; PCP Internal Medicine
DX: R07.9 Chest pain, unspecified (principal); R20.2 Paresthesia of skin; R91.1 Solitary pulmonary nodule; Z72.0 Tobacco use
CPT/HCPCS: 71275; 80053; 84484; 85025; 86803; 87389; 93005; 96374; 96375; 99285; J2270; J2405; Q9967

== ENCOUNTER 2024-01-22 19:33 | Outpatient (CLI) | payer BC, SELFPAY ==
[2024-01-22 20:16] LABS: Cholesterol 190 mg/dl (140-200); Triglycerides 99 mg/dl (30-150); VLDL Cholesterol 20 mg/dL (0-40)
[2024-01-22 20:17] LABS: Chol/HDL Ratio 3.5 (1-3.5); HDL Cholesterol 55 mg/dl (40-60)
[2024-01-22 20:27] LABS: Direct LDL Cholesterol 103.62 mg/dL (100-129)
[2024-01-22 20:43] LABS: 25-OH Vitamin D, Total 30.7 ng/mL (30-100)
== END 2024-01-22 23:59 | disposition home or self-care (01) ==
LOC: LAB 19:34
PROVIDERS: PCP Internal Medicine; Visit Provider Internal Medicine
DX: R53.83 Other fatigue (principal); E66.3 Overweight
CPT/HCPCS: 80061; 82306

== ENCOUNTER 2024-01-27 08:47 | Emergency (ER) | payer BC, SELFPAY ==
[2024-01-27] VITALS (10 sets, daily range): BP systolic 108–127; BP diastolic 55–85; PULSE 47–58; RESP 12–21; TEMP 36.9; O2SAT 96–99; BMI 24.2
--- NOTE | 2024-01-27 08:42 | ECG_ITS ---
APPROVED REPORT Exam: Resting ECG HR:48 bpm ECG Measurements Heart Rate 48 AXES [place] 141 P 51 QRSd 84 QRS 78 QT 431 T 49 QTc 398 Conclusion SINUS BRADYCARDIA BORDERLINE ECG Electronically signed by : DEIDRE PAUL, 01/27/2024 16:06:37
--- NOTE | 2024-01-27 09:17 | XR_ITS ---
FINAL REPORT CLINICAL HISTORY: palpitations, chest pain COMPARISON: 08/11/2023 FINDINGS: Two views of the chest were obtained. The heart size and pulmonary vascularity are within normal limits. The mediastinum is normal. Mild bronchial wall thickening is consistent with bronchitis. There is no pneumothorax. The bony thorax is intact. IMPRESSION: Bronchial wall thickening consistent with bronchitis. Reviewed, Interpreted and Dictated by Rick Wisdom III, MD Transcribed by Faviola Garza Authenticated and [facility]
--- NOTE | 2024-01-27 09:24 | HMH.EDGENADL ---
Discharge Plan Disposition Patient Disposition: Home, Self-Care Condition: Good Prescriptions Prescriptions: No Action olanzapine 5 mg tablet 5 mg PO HS Qty: 30 2RF desvenlafaxine succinate [Pristiq] 25 mg tablet extended release 24 hr 25 mg PO DAILY Qty: 30 2RF meloxicam 15 mg tablet 15 mg PO DAILY Qty: 30 2RF multivitamin Tablet 1 tab PO DAILY melatonin 10 mg capsule 10 mg PO HS PRN (Reason: Sleep) atorvastatin 10 mg tablet 10 mg PO DAILY Qty: 30 2RF Referrals Follow up/Referrals: Rob Guevara DO [Primary Care Provider] - See instructions Elie Valerio MD [Staff Physician] - See instructions Activity Restrictions/Add. Instructions Additional Instructions/Restrictions: You were evaluated in the emergency department today. Please follow-up very closely with your primary care provider as well as with cardiology. You are found to have an incidental pulmonary nodule, which is stable from prior imaging. For this, you can follow-up outpatient. It was like you may have a developing bronchitis/viral infection on imaging. Return to the emergency department for new or worsening symptoms. Clinical Impressions Clinical Impression: Palpitations, Ground glass opacity present on imaging of lung Stand Alone Forms Stand Alone Forms: Work/School Release Instructions Patient Instructions: Dizziness, Nonvertigo, DI for Palpitations Print Language Print Language: Moroccan Discharge ED Provider: [facility] HPI General Chief complaint: Dizziness Stated complaint: chest pain Time Seen by Provider: 01/27/24 08:53 Mode of Arrival: Ambulatory Source of Information: Patient Limitations: No Limitations Description of Symptoms (Recalled from ER Triage Doc. by RN): Pt. presents to the ED with complaints of heart palpatations, dizziness, and shortness of breath since last night around 2300. She states it was worse this morning and she became worried when she felt short of air. She denies chest pain. History of Present Illness HPI narrative: This patient is a 53-year-old female with a history of palpitations, COPD, tobacco abuse, history of ovarian cancer status post total hysterectomy never requiring chemo/radiation, sinus bradycardia, mitral valve prolapse presenting to the emergency department for evaluation with concern for palpitations. Patient states at 11 PM she woke up with some chest pain and palpitations and generally feeling unwell. She feels very lightheaded. She notes that the palpitations are taking her breath away. She went back to sleep last night hoping that it would go away, but she woke up this morning not feeling any better. She states that she is experienced this in the past multiple times but has not experienced it in about a month. She denies any recent changes in sleep, diet, but she does note that she cut out sodas and start drinking more water. No fevers, chills, cough, congestion, abdominal pain, vomiting, changes bowel movements, or other concerns. Related Data Home Medications ?Medication ?Instructions ?Recorded ?Confirmed melatonin 10 mg capsule 10 mg PO HS PRN Sleep 01/06/24 01/27/24 multivitamin 1 tab PO DAILY 01/06/24 01/27/24 Previous Rx's ?Medication ?Instructions ?Recorded atorvastatin 10 mg tablet 10 mg PO DAILY #30 tabs 10/28/23 desvenlafaxine succinate 25 mg 25 mg PO DAILY #30 tabs 11/24/23 tablet,extended release 24 hr (Pristiq) olanzapine 5 mg tablet 5 mg PO HS #30 tabs 11/24/23 meloxicam 15 mg tablet 15 mg PO DAILY #30 tabs 12/08/23 Allergies Allergy/AdvReac Type Severity Reaction Status Date / Time No Known Allergies Allergy Verified 01/27/24 09:10 [facility] Disclaimer: The information contained in this section may have been updated after the patient was seen, as this information can be updated by other users. 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 Ovarian cancer Schizophrenia COPD (chronic obstructive pulmonary disease) Syncope Palpitations Chest pain Surgical History History of eye surgery H/O wisdom tooth extraction H/O: hysterectomy Family History Other No significant family history Social History Smoking Status: Current every day smoker tobacco type: cigarettes packs per day: 1 quit status: considering quitting second hand exposure: Yes alcohol intake: never substance use type: marijuana current occupational status: disabled Travel in the last 8 weeks: None housing: house number of children: 3 caffeine: Yes Other 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 Have you received the Flu Vaccine for this season: No Have you received the Pneumonia Vaccine: No ROS Obtained: Yes All systems reviewed & no additional complaints except as documented Physical Exam General General appearance: alert and in no apparent distress Head Head exam: atraumatic and normocephalic Eye Eye exam: Present normal appearance, PERRL and EOMI ENT ENT exam: Present normal exam, normal oropharynx, mucous membranes moist and normal external ear exam Neck Neck exam: Present normal inspection, full ROM and trachea midline; Absent tenderness Chest Chest inspection: Present normal inspection and symmetric chest wall rise; Absent tenderness Respiratory Respiratory exam: Present normal lung sounds bilaterally; Absent respiratory distress, wheezes, stridor or accessory muscle use Cardiovascular Cardiovascular exam: Present normal rhythm and bradycardia Abdominal Exam Abdominal exam: Present soft; Absent distention, tenderness or guarding Extremities Exam Extremities exam: Present normal inspection, full ROM and normal capillary refill; Absent tenderness or edema Back Exam Back exam: Present normal inspection and full ROM; Absent tenderness Neurological Exam Neurological exam: Present alert, oriented X3, CN II-XII intact and normal gait; Absent motor sensory deficit Psychiatric Psychiatric exam: Present normal affect and normal mood Skin Skin exam: Present warm and dry Medical Decision Making Medical Records Medical records reviewed: Yes I reviewed the patient's medical records. Screening: Per USPSTF and CDC recommendations, given the prevalence of disease in our region, it is our hospital?s policy to screen for HIV and viral Hepatitis for all patients aged 18 and over and those with ongoing risk factors. Dariel Inquiry Pt receiving controlled substance: No Vital Signs: 01/27/24 09:01 01/27/24 09:01 01/27/24 09:32 Temperature 98.5 F Temperature Source Oral Pulse Rate 53 L 58 L Pulse Rate [Orthostatic Lying] Pulse Rate [Orthostatic Sitting] Pulse Rate [Orthostatic Standing] Pulse Rate [Right Brachial] 52 L Respiratory Rate 18 15 19 Blood Pressure 116/55 L 119/57 L Blood Pressure [Orthostatic Lying] Blood Pressure [Orthostatic Sitting] Blood Pressure [Orthostatic Standing] Blood Pressure [Right Arm] 116/55 L Blood Pressure Mean [Right Arm] 75 Blood Pressure Source Blood Pressure Source [Right Arm] Automatic Cuff Blood Pressure Position [Right Arm] Sitting 02 Sat by Pulse Oximetry 98 97 96 Oxygen Delivery Method Room Air 01/27/24 09:49 01/27/24 10:00 01/27/24 10:01 Temperature Temperature Source Pulse Rate 52 L 52 L Pulse Rate [Orthostatic Lying] 47 L Pulse Rate [Orthostatic Sitting] 50 L Pulse Rate [Orthostatic Standing] 50 L Pulse Rate [Right Brachial] Respiratory Rate 12 12 Blood Pressure 108/56 L 119/73 Blood Pressure [Orthostatic Lying] 108/56 L Blood Pressure [Orthostatic Sitting] 119/73 Blood Pressure [Orthostatic Standing] 115/75 Blood Pressure [Right Arm] Blood Pressure Mean [Right Arm] Blood Pressure Source Blood Pressure Source [Right Arm] Blood Pressure Position [Right Arm] 02 Sat by Pulse Oximetry 99 98 Oxygen Delivery Method 01/27/24 10:02 01/27/24 10:30 01/27/24 11:02 Temperature Temperature Source Pulse Rate 57 L 47 L 54 L Pulse Rate [Orthostatic Lying] Pulse Rate [Orthostatic Sitting] Pulse Rate [Orthostatic Standing] Pulse Rate [Right Brachial] Respiratory Rate 12 19 21 Blood Pressure 115/75 124/63 127/63 Blood Pressure [Orthostatic Lying] Blood Pressure [Orthostatic Sitting] Blood Pressure [Orthostatic Standing] Blood Pressure [Right Arm] Blood Pressure Mean [Right Arm] Blood Pressure Source Blood Pressure Source [Right Arm] Blood Pressure Position [Right Arm] 02 Sat by Pulse Oximetry 97 99 97 Oxygen Delivery Method 01/27/24 11:30 01/27/24 12:30 Temperature 98.5 F Temperature Source Oral Pulse Rate 49 L Pulse Rate [Orthostatic Lying] Pulse Rate [Orthostatic Sitting] Pulse Rate [Orthostatic Standing] Pulse Rate [Right Brachial] Respiratory Rate 19 18 Blood Pressure 121/70 120/85 Blood Pressure [Orthostatic Lying] Blood Pressure [Orthostatic Sitting] Blood Pressure [Orthostatic Standing] Blood Pressure [Right Arm] Blood Pressure Mean [Right Arm] Blood Pressure Source Automatic Cuff Blood Pressure Source [Right Arm] Blood Pressure Position [Right Arm] 02 Sat by Pulse Oximetry Oxygen Delivery Method Room Air Lab Data Lab results reviewed: Yes I reviewed the patient's lab results. Lab Results 01/27/24 08:55: WBC 7.5, RBC 4.84, Hgb 15.0, Hct 44.1, MCV 91.0, MCH 30.9, MCHC 33.9, RDW 14.2, Plt Count 174, MPV 10.4, Neut % (Auto) 57.7, Lymph % (Auto) 33.6, [place] % (Auto) 5.0, Eos % (Auto) 3.1, Baso % (Auto) 0.6, Neut # (Auto) 4.3, Lymph # (Auto) 2.5, [place] # (Auto) 0.4, Eos # (Auto) 0.2, Baso # (Auto) 0.0 01/27/24 09:25: D-Dimer 0.69 H, Sodium 136, Potassium 4.7, Chloride 110 H, Carbon Dioxide 25, Anion Gap 5.7, BUN 17, Creatinine 0.70, Estimated Creat Clear 83, Estimated GFR 88, Est GFR ( Amer) 106, Glucose 91, Calcium 9.7, Phosphorus 4.4, Magnesium 1.8, Total Bilirubin 0.5, AST 47 H, ALT 26, Alkaline Phosphatase 57, Troponin I < 0.01, NT-Pro-B Natriuret Pep 41.7, Total Protein 7.2, Albumin 4.5, Globulin 2.7, Albumin/Globulin Ratio 1.7, TSH 3.97, Thyroxine (T4) 8.8 01/27/24 11:34: Troponin I < 0.01 01/27/24 11:45: SARS-CoV-2 (PCR) Not detected, Influenza A Untype (PCR) Not detected, Influenza Type B (PCR) Not detected 01/27/24 08:55 01/27/24 09:25 Orders (Tests/Meds): ED MEDICATIONS Discontinued Medications Generic Name Dose Route Start Last Admin Trade Name Freq PRN Reason Stop Dose Admin Iopamidol 70 ml 01/27/24 10:17 01/27/24 10:18 Iopamidol-370 (76%);100ml Bottle IV 01/27/24 10:18 70 ml ONCE ONE Administration Sodium Chloride 10 ml 01/27/24 10:17 01/27/24 10:18 Sodium Chloride 0.9% 10ml Syr (Rad Only) IV 01/27/24 10:18 10 ml ONCE ONE Administration Sodium Chloride 50 ml 01/27/24 10:17 01/27/24 10:18 0.9 % Sodium Chloride 50 Ml Vial IV 01/27/24 10:18 50 ml ONCE ONE Administration ORDERS Category Date Time Status CTA Chest [CT angio chest PE protocol] Stat Cat Scan 01/27/24 10:02 Completed CXR 2 view (NOT portable) [XR chest 2V] Stat Exams 01/27/24 09:17 Completed BNP [NT Pro Brain Natriuretic Pep.] Stat Lab 01/27/24 09:25 Completed Complete Blood Count Auto Diff Stat Lab 01/27/24 08:55 Completed Comprehensive Metabolic Panel Stat Lab 01/27/24 09:25 Completed D-Dimer Stat Lab 01/27/24 09:25 Completed Magnesium Stat Lab 01/27/24 09:25 Completed Phosphorous Stat Lab 01/27/24 09:25 Completed Rapid PCR Covid and Flu A/B Stat Lab 01/27/24 11:45 Completed T4 (Thyroxine) Stat Lab 01/27/24 09:25 Completed TSH [Thyroid Stimulating Hormone] Stat Lab 01/27/24 09:25 Completed Trop I [Troponin I] Stat Lab 01/27/24 09:25 Completed Troponin I Q3H Lab 01/27/24 11:34 Completed ECG Data Tracing #1: I reviewed this ECG and interpreted as documented below: Sinus bradycardia with a ventricular rate of [address] changes concerning for ischemia. Normal axis and intervals ECG initial impression date: 01/27/24 ECG initial impression time: 08:51 Medical Decision Narrative: In summary, this patient is a 53-year-old female presenting to the Emergency Department for evaluation of palpitations. Last night she had chest pain. Differential diagnoses considered include but are not limited to ACS, dysrhythmia, electrolyte derangements, anxiety,. Ruling out the most morbid conditions drove assessment. It should be noted patient's history includes COPD, tobacco abuse, prior methamphetamine abuse, migraines, palpitations, sinus bradycardia, mitral valve prolapse which may or may not be at goal therapy. This complicates all aspects of care by increasing patient's risk for morbidity. I reviewed patient's past medical records and noted recent PCP evaluation 01/05. I noted cardiology evaluation in 2021 On exam, the patient is lying in bed in no acute distress with sinus bradycardia but otherwise reassuring vital signs on cardiac telemetry. Exam is reassuring. Workup included CBC, CMP, troponin, magnesium, phosphorus, BNP, D-dimer, chest x-ray, EKG. EKG obtained demonstrates sinus bradycardia without other acute concerns. I independently interpreted chest x-ray prior to the radiologist read and noted concerns for possible. Please see their read for final interpretation. Labs were obtained that demonstrated reassuring CBC with no significant leukocytosis or anemia, reassuring chemistry with no significant electrolyte derangements, mildly elevated AST which is nonspecific. EKG reassuring, troponin negative. D-dimer was mildly elevated, so I did order a CT PE protocol. Patient has groundglass opacities concerning for edema versus infection. BNP is not elevated. She does note that her grandchild has RSV, so it is possible she could be developing a viral upper respiratory infection. She is currently not having any cough, wheezing, or other concerns I would suggest that I need to treat her with steroids or antibiotics despite her COPD. Ultimately, I feel that she is appropriate for discharge home after reassuring workup and exam. She was given instructions for close follow-up with primary care as well as cardiology. Strict return precautions were given and she was discharged after all questions were answered Critical Care Critical Care Time Critical Care Time: No
[2024-01-27 09:28] LABS: Basophils % 0.6 % (0.1-2.0); Eosinophils # 0.2 K/mm3 (0.0-0.4); Eosinophils % 3.1 % (0.1-12.0); Hematocrit 44.1 % (37.0-47.0); Lymphocytes # 2.5 K/mm3 (0.7-4.5); Lymphocytes % 33.6 % (10-50); Mean Corpuscular HGB Conc 33.9 g/dL (31.8-35.4); Mean Corpuscular Hemoglobin 30.9 pg (27.0-31.2); Mean Platelet Volume 10.4 fl (7.4-10.4); Monocytes # 0.4 K/mm3 (0.1-1.0); Neutrophils # 4.3 K/mm3 (1.8-7.8); Neutrophils % 57.7 % (37.0-80.0); Platelet Count 174 K/mm3 (142-424); Red Blood Count 4.84 M/mm3 (4.20-5.40); Red Cell Distribution Width 14.2 % (11.5-17.5); White Blood Count 7.5 K/mm3 (4.8-10.8)
[2024-01-27 09:43] LABS: Albumin Level 4.5 g/dl (3.5-5.0); Chloride 110 mmol/L (98-107); Potassium 4.7 mmoL/L (3.5-5.1); Sodium 136 mmol/L (136-145)
[2024-01-27 09:46] LABS: Alanine Aminotransferase 26 U/L (12-78); Albumin/Globulin Ratio 1.7 (1.1-1.8); Alkaline Phosphatase 57 U/L (38-126); Anion Gap 5.7 mEq/L (5-15); Aspartate Amino Transferase 47 U/L (14-36); Bilirubin,Total 0.5 mg/dl (0.2-1.3); Blood Urea Nitrogen 17 mg/dl (7-17); Calcium 9.7 mg/dl (8.4-10.2); Carbon Dioxide 25 mmol/L (22.0-30.0); Creatinine Clearance Estimated 83 mL/min (50-200); Estimated Glomerular Filt Rate 88 ml/min (>60); GFR (African American) 106 ML/MIN (>60); Globulin 2.7 g/dL (1.3-3.2); Glucose 91 mg/dl (74-100); Phosphorous 4.4 mg/dl (2.5-4.5); Total Protein,Serum 7.2 g/dl (6.3-8.2)
[2024-01-27 09:47] LABS: Magnesium 1.8 mg/dl (1.6-2.3)
[2024-01-27 09:52] LABS: D-Dimer 0.69 ug/mL (0.0-0.5)
[2024-01-27 09:56] LABS: NT Pro Brain Natriuretic Pep. 41.7 pg/mL (0-125)
--- NOTE | 2024-01-27 10:02 | CT_ITS ---
FINAL REPORT TECHNIQUE: Then section axial CT images of the chest were obtained with contrast. Three-D reformatted images were also obtained.This study was performed with techniques to keep radiation doses as low as reasonably achievable (ALARA). Individualized dose reduction techniques using automated exposure control or adjustment of mA and/or kV according to the patient's size were employed. CLINICAL HISTORY: chest pain, elevated dimer COMPARISON: 11/18/2023 FINDINGS: There is no evidence of pulmonary embolism. There is no evidence of thoracic aortic aneurysm or dissection. There is bilateral nonspecific mild mediastinal and hilar adenopathy, unchanged since the prior CT of November. There is a nodule, noncalcified, measuring 4 mm in size best seen on image #79 of series 5, stable. There are new patchy ground glass opacities noted bilaterally, favor edema. Limited images of the upper abdomen are unremarkable. IMPRESSION: No evidence of pulmonary embolism, dissection, or aneurysm. New patchy ground glass opacities in the lung chu, favor edema. Stable 4 mm nodule compared with the prior exam of November. Reviewed, Interpreted and Dictated by Rcik Wisdom III, MD Transcribed by Angie Loaiza Authenticated and [facility]
[2024-01-27 10:03] LABS: T4 (Thyroxine) 8.8 ug/dl (5.53-11.0)
[2024-01-27 10:16] LABS: Thyroid Stimulating Hormone 3.97 uIU/mL (0.465-4.68)
[2024-01-27 10:17] LABS: Troponin I < 0.01 ng/ml (0.00-0.034)
[2024-01-27] MEDS: 0.9 % SODIUM CHLORIDE 50 ML VIAL IV (10:18)
[2024-01-27] MEDS: SODIUM CHLORIDE 0.9% 10ML SYR (RAD ONLY) 10 ML IV (10:18)
[2024-01-27] MEDS: IOPAMIDOL-370 (76%);100ML BOTTLE 70 ML IV (10:18)
[2024-01-27 11:48] LABS: Coronavirus 19, PCR Not Detected (NotDetected); Influenza A, PCR Not Detected (NotDetected); Influenza B, PCR Not Detected (NotDetected)
[2024-01-27 12:26] LABS: Troponin I < 0.01 ng/ml (0.00-0.034)
== END 2024-01-27 12:33 | disposition home or self-care (01) ==
PROVIDERS: Emergency Provider Emergency Medicine; PCP Internal Medicine
DX: R91.8 Other nonspecific abnormal finding of lung field (principal); R07.9 Chest pain, unspecified; R00.2 Palpitations; R42 Dizziness and giddiness; R06.02 Shortness of breath
CPT/HCPCS: 71046; 71275; 80050; 80053; 83735; 83880; 84100; 84436; 84443; 84484; 85025; 85378; 87636; 93005; 99285; Q9967

== ENCOUNTER 2024-04-06 15:57 | Outpatient (CLI) | payer MEDICAID, SELFPAY ==
--- NOTE | 2024-04-06 16:06 | XR_ITS ---
PROCEDURE INFORMATION: Exam: XR Left Hip Exam date and time: 04/06/2024 4:32 PM Age: 54 years old Clinical indication: Hip pain; Right hip; Additional info: Right hip pain and popping out of place. Nki TECHNIQUE: Imaging protocol: Radiologic exam of the left hip. Views: 2 or 3 views hip with pelvis when performed. COMPARISON: CT ANGIO ABDOMEN PELVIS 12/19/2022 9:01 PM FINDINGS: Bones/joints: Unremarkable. No acute fracture. Soft tissues: Unremarkable. Vasculature: There are numerous benign phleboliths in the pelvis. IMPRESSION: No acute findings.
--- NOTE | 2024-04-06 16:06 | XR_ITS ---
PROCEDURE INFORMATION: Exam: XR Right Hip Exam date and time: 04/06/2024 4:32 PM Age: 54 years old Clinical indication: Hip pain; Right hip; Additional info: Pain and crepitus. Right hip popping out of place. Nki TECHNIQUE: Imaging protocol: Radiologic exam of the right hip. Views: 2 or 3 views hip with pelvis when performed. COMPARISON: CT ANGIO ABDOMEN PELVIS 12/19/2022 9:01 PM FINDINGS: Bones/joints: Unremarkable. No acute fracture. Soft tissues: Unremarkable. Vasculature: There are numerous benign phleboliths in the pelvis. IMPRESSION: No acute findings.
== END 2024-04-06 23:59 | disposition home or self-care (01) ==
LOC: RAD 15:57
PROVIDERS: PCP Internal Medicine; Visit Provider Internal Medicine
DX: M25.551 Pain in right hip (principal); M25.552 Pain in left hip
CPT/HCPCS: 73502

== ENCOUNTER 2024-10-01 21:44 | Emergency (ER) | payer SELFPAY ==
[2024-10-01 21:49] VITALS: BP 109/81; PULSE 58; O2SAT 99
[2024-10-01 21:53] VITALS: BP 109/81; PULSE 59; RESP 18; TEMP 37.1; O2SAT 98; BMI 25.0
--- OUTSIDE RECORDS SUMMARY | 2024-10-01 21:57 | XMS_ITS | Clinical Summary ---
Author Organization Healthcare Address [address] [place] [id number] Care Team Providers Care Storage Battery Inspector Name Role Phone Phil Khalil MD Primary Care Provider [phone] Allergies No known active allergies Active Problems Problem Noted Date Diagnosed Date Fall 07/13/2024 Encounters Date Type Department Care Team Description 07/13/2024 9:57 PM EDT - 07/13/2024 10:46 PM EDT Emergency [facility] [address] [place] [address] Tejas Rosenberg MD Fall, initial encounter (Primary Dx) Discharge Disposition: Left Against Medical Advice 07/13/2024 Travel from Last 3 Months Social History Tobacco Use Types Packs/Day Years Used Date Smoking Tobacco: Never Assessed Comments Unknown Sex and Gender Information Value Date Recorded Sex Assigned at Not on file Legal Sex Female 7:49 PM EDT Gender Identity Not on file Sexual Orientation Not on file Last Filed Vital Signs Vital Sign Reading Time Taken Comments Blood Pressure 123/69 07/13/2024 7:34 PM EDT Pulse 61 07/13/2024 7:34 PM EDT Temperature 36.4 C (97.6 F) 07/13/2024 7:34 PM EDT Respiratory Rate 14 07/13/2024 7:34 PM EDT Oxygen Saturation 97% 07/13/2024 7:34 PM EDT Inhaled Oxygen Concentration - - Weight 54.4 kg (120 lb) 07/13/2024 7:34 PM EDT Height - - Body Mass Index - - Plan of Treatment Health Maintenance Due Date Last Done Comments [facility]-Depression Screening 1971 [facility]-HIV Screening 1971 [facility]-Hepatitis C Screening 1971 [facility]-Infant/Child/Adol SDOH Screenings 1971 [facility]- SDOH Screenings 1989 [facility]-Adult SDOH Screenings 1989 [facility]-Hepatitis B Vaccines (1 of 3 - 19+ 3-dose series) 1990 [facility]-Pap Smear 10/23/2006 10/24/2003 [facility]-Cervical Cancer Screening 10/23/2008 [facility]-HPV/Cotest 10/23/2008 10/24/2003 CT Colonography 02/21/2016 Colonoscopy 02/21/2016 FIT-DNA 02/21/2016 FIT 02/21/2016 FOBT 02/21/2016 Sigmoidoscopy 02/21/2016 [facility]-Colorectal Cancer Screening 02/21/2016 [facility]-Breast Cancer Screening 2021 [facility]-Pneumococcal Vaccine: 50 + Years (1 of 1 - PCV) 2021 [facility]-Zoster Vaccines (1 of 2) 2021 [facility]-TFPGR-95 Vaccine (3 - season) 2023 09/18/2020, 06/06/2020 [facility]-Influenza Vaccine (#1) 10/17/202404/06, 01/05/2017 [facility]-DTaP,Tdap,and Td Vaccine s (4 - Td or Tdap) 10/07/2029 10/08/2019, 01/26/2019, 07/14/2014 [facility]-Hepatitis A Vaccines Aged Out 04/06/2018 No longer eligible based on patient's age to complete this topic HPV Vaccines Aged Out No longer eligi ble based on patient's age to complete this topic [facility]-HIB Vaccines Aged Out No longer e ligible based on patient's age to complete this topic [facility]-IPV Vaccines Aged Out No longer e ligible based on patient's age to complete this topic [facility]-Rotavirus Vaccines Aged Out No lo nger eligible based on patient's age to complete this topic Procedures Procedure Name Priority Date/Time Associated Diagnosis Comments CYTO DATA CONVERSION Routine 10/24/2003 12:00 AM EDT from Last 3 Months or Most Recently Relevant to Health Maintenance Results * Cytology (10/24/2003 12:00 AM EDT) 10/24/2003 10/25/2003 10: 52 AM EDT Narrative SUNQUEST - 11/01/2003 1:10 PM EDT [facility] MR #: [id number] [facility] [address] [place], [place] [address] 1970 (Age: 33) FW Collect Date: 10/24/2003 00:00 Receipt Date: 10/25/2003 10:52 Page 1 DEPARTMENT OF PATHOLOGY AND LABORATORY MEDICINE CYTOPATHOLOGY REPORT Email: [email or web address] ATTENDING MD/Practitioner: Sonia Pratt MD Service: [facility] [place] Location: [facility] Reported: 11/01/2003 13:10 Collected: 10/24/2003 00:00 INTERPRETATION THIN PREP (CERVICAL/VAGINAL): NEGATIVE FOR INTRAEPITHELIAL LESION OR MALIGNANCY. SATISFACTORY FOR EVALUATION; ENDOCERVICAL/ TRANSFORMATION ZONE COMPONENT PRESENT. Slide scanned and imaged by [employer] ThinPrep Imaging System with manual review of all selected chu. Electronically Signed Out By LEXI Granados(ASCP) LEXI Granados(ASCP) Cervical cytology is a screening test primarily for squamous cancers and precursors and has associated false negative and positive results. New technologies such as liquid based sampling may decrease but will not eliminate all false negative results. Regular screening and follow-up of unexplained clinical signs and symptoms are recommended to minimize false negative results. Please see the ASCCP website (www.asccp.org) for followup recommendations. If HPV testing was requested, correlation with the results is suggested (please call Microbiology at [phone] for results). CLINICAL INFORMATION: Menstrual History: Cyclic Date of Last Menstrual Period: {Not Provided} SPECIMEN DESCRIPTION: A: THIN PREP (CERVICAL/VAGINAL) THIN PREP PROCESS CELLULAR ENHANCEMENT ICD: V76.2 CERVIX, SPECIAL SCREENING FOR MALIGNANT NEOPLASM F: A; RT IMAGE [id number] SNOMED CODES: A; [id number] In cases where a pathologist has signed out the report, the service has been rendered in part by a resident. The signing pathologist has performed and is responsible for the reported pathologic evaluation. [employer]histor[employer] Provider LAB PATHOLOGY ORDERABL ES Final Result SUNQUEST from Last 3 Months or Most Recently Relevant to Health Maintenance Insurance [facility] MEDICAID Care Teams Storage Battery Inspector Relationship Specialty Start Date End Date Phil Khalil MD [address] [place] [address] PCP - General 06/29/20
[2024-10-01 22:00] VITALS: BP 124/72; PULSE 56; O2SAT 97
--- NOTE | 2024-10-01 22:01 | HMH.EDGENADL ---
Discharge Plan Disposition Patient Disposition: Home, Self-Care Prescriptions Prescriptions: No Action No Known Home Medications Referrals Follow up/Referrals: Provider,Referral, [Primary Care Provider, Medical] - See instructions Activity Restrictions/Add. Instructions Additional Instructions/Restrictions: I encourage you to follow-up with one of our primary care providers to establish care and treatment for your chronic migraines. Continue to hydrate well by drinking plenty of fluids. If you develop any new or worsening symptoms, or if you become concerned for your health for any reason, return to the emergency department for evaluation Clinical Impressions Clinical Impression: Headache, migraine Print Language Print Language: Welsh Discharge ED Provider: Herman Curry Adult HPI General Chief complaint: Headache Stated complaint: Migraine with vomiting Time Seen by Provider: 10/01/24 21:51 Mode of Arrival: Ambulatory Source of Information: Patient Description of Symptoms (Recalled from ER Triage Doc. by RN): PT presents to the Ed for evaluation of a migraine since 1200 on this date. PT stated she took 3 BC packets and has not helped. PT describes her pain as a band around her forehead. History of Present Illness HPI narrative: Lilibeth Floyd is a 54F with a history of migraine headaches, COPD, schizophrenia, tobacco use who presents to the emergency department for complaints of a migraine headache. Patient states that she developed a squeezing pain to the top of her head that feels like my head is going to bust with photosensitivity and nausea but no vomiting. She states that this feels typical to previous migraine headaches, which she typically gets every 2 to 3 months. She states she took 3 BC powders, which typically helps her headaches, however these were unsuccessful. She states that she has come to the emergency department with severe headaches before and received IV medications that resolved her headache. She states that she does not currently have a primary care doctor and has not followed with a neurologist for these headaches. Related Data Home Medications ?Medication ?Instructions ?Recorded ?Confirmed No Known Home Medications 10/01/24 10/01/24 Allergies Allergy/AdvReac Type Severity Reaction Status Date / Time No Known Allergies Allergy Verified 10/01/24 21:58 [facility] Disclaimer: The information contained in this section may have been updated after the patient was seen, as this information can be updated by other users. 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 Nasal valve collapse I think she is noticed over the last few years that the cartilage of the dorsum is not as resilient as it once was. Nasal dorsal issue seems to be minor in comparison with her airflow problems. Ovarian cancer Schizophrenia COPD (chronic obstructive pulmonary disease) Syncope Palpitations Chest pain Surgical History History of eye surgery H/O wisdom tooth extraction H/O: hysterectomy Family History Other No significant family history Social History (Updated 06/23/24 @ 14:09 by Maria R Orellana MA) Smoking Status: Current every day smoker smoking status stop date: 05/29/24 quit status: considering quitting second hand exposure: Yes alcohol intake: never substance use type: marijuana current occupational status: disabled Travel in the last 8 weeks?: None housing: house number of children: 3 caffeine: Yes Have you lived/traveled outside US in past 30 days?: No Contact w/someone who lives/traveled outside US past 30 days?: No Exposure to someone with infectious disease in past 14 days?: No Do you have a fever (greater than 100.4 F or 38 C)?: No Have you tested positive for COVID-19?: No Exposed to someone with COVID-19 in past 14 days?: No Do you have a sore throat?: No Do you have a cough?: No Do you have any weakness?: No Do you have any diarrhea?: No Are you experiencing any unusual bleeding?: No Do you have any muscle aches/pain?: No Do you have any abdominal pain?: No Are you experiencing loss of taste or smell?: No Other 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 Have you received the Flu Vaccine for this season: No Have you received the Pneumonia Vaccine: No ROS Obtained: Yes Systems reviewed as appropriate & no additional complaints except as documented Physical Exam General General appearance: alert and in no apparent distress Comment: appears uncomfortable Head Head exam: atraumatic Eye Eye exam: Present normal appearance, PERRL and EOMI ENT ENT exam: Present normal external ear exam Neck Neck exam: Present full ROM Chest Chest inspection: Present symmetric chest wall rise Respiratory Respiratory exam: Present normal lung sounds bilaterally; Absent respiratory distress Cardiovascular Cardiovascular exam: Present regular rate and normal rhythm Abdominal Exam Abdominal exam: Present soft; Absent tenderness or guarding Extremities Exam Extremities exam: Present normal inspection Back Exam Back exam: Present normal inspection Neurological Exam Neurological exam: Present alert, oriented X3 and CN II-XII intact; Absent motor sensory deficit Psychiatric Psychiatric exam: Present normal affect and anxious Skin Skin exam: Present warm and dry Medical Decision Making Medical Records Screening: Per USPSTF and CDC recommendations, given the prevalence of disease in our region, it is our hospital?s policy to screen for HIV and viral Hepatitis for all patients aged 18 and over and those with ongoing risk factors. Dariel Inquiry Pt receiving controlled substance: No Vital Signs: 10/01/24 21:49 10/01/24 21:53 10/01/24 22:00 Temperature 98.7 F Temperature Source Oral Pulse Rate 58 L 56 L Pulse Rate [Right] 59 L Respiratory Rate 18 Blood Pressure 109/81 L 124/72 Blood Pressure [Right Arm] 109/81 L Blood Pressure Mean [Right Arm] 90 02 Sat by Pulse Oximetry 99 98 97 Orders (Tests/Meds): ED MEDICATIONS Discontinued Medications Generic Name Dose Route Start Last Admin Trade Name Freq PRN Reason Stop Dose Admin Dexamethasone Sodium Phosphate 10 mg 10/01/24 21:59 10/01/24 22:28 Dexamethasone 4mg/Ml 1ml Vial IV 10/01/24 22:00 10 mg ONCE ONE Administration Diphenhydramine HCl 25 mg 10/01/24 21:59 10/01/24 22:28 Diphenhydramine 50mg/Ml Vial IV 10/01/24 22:00 25 mg ONCE ONE Administration Lactated Ringer's 1,000 mls @ 999 mls/hr 10/01/24 21:59 10/01/24 22:27 Lactated Ringer's 1000 Ml Bag IV 10/01/24 22:59 999 mls/hr .Q1H1M ONE Administration Ketorolac Tromethamine 15 mg 10/01/24 21:59 10/01/24 22:28 Ketorolac 30mg/Ml Vial IV 10/01/24 22:00 15 mg ONCE ONE Administration Prochlorperazine Edisylate 10 mg 10/01/24 21:59 10/01/24 22:28 Prochlorperazine 10mg/2ml Vial IV 10/01/24 22:00 10 mg ONCE ONE Administration Medical Decision Narrative: Lilibeth Floyd is a 54F with a history of migraine headaches, COPD, schizophrenia, tobacco use who presents to the emergency department for complaints of a migraine headache. Patient states that she developed a squeezing pain to the top of her head that feels like my head is going to bust with photosensitivity and nausea but no vomiting. She states that this feels typical to previous migraine headaches, which she typically gets every 2 to 3 months. She states she took 3 BC powders, which typically helps her headaches, however these were unsuccessful. She states that she has come to the emergency department with severe headaches before and received IV medications that resolved her headache. She states that she does not currently have a primary care doctor and has not followed with a neurologist for these headaches. On arrival, patient blood pressure is 109/81, heart rate mildly low at 59 bpm, afebrile, oxygen saturation 90% on room air. Physical exam, stated above, revealed uncomfortable. Female in no respiratory distress. She has an unremarkable and nonfocal neurological exam. The remainder of her exam is unremarkable as well. Differential diagnosis includes, but is not limited to: Migraine headache, tension headache, cluster headache. CT imaging of the head and lab work were considered, however given patient has a history of migraine headaches and this appears identical to previous episodes of migraine headaches, it is felt that this is not indicated at this time as it would not change ED management. Based on previous documentation from emergency department visit on 06/20/2023, patient had a migraine cocktail that consisted of Toradol, Compazine, dexamethasone, Benadryl and IV fluids. Will administer this combination with 50 mg IV Toradol, 10 mg IV Compazine, 10 mg IV dexamethasone, 25 mg IV Benadryl and 1 L lactated ringer. Patient had CT imaging of the head at that time that was unremarkable. According to documentation at that time, patient ultimately received 6 mg of sumatriptan succinate, however will attempt previously described migraine cocktail before giving abortive medication. On reassessment at 2308, patient stated that her headache has resolved and she was able to sleep comfortably. She is eager to get home at this time. Given this, so that she is appropriate for discharge. She states that she currently does not have a primary care physician. I encouraged her to call listed providers here to schedule an appointment with her primary care physician to manage her chronic migraines. Return precautions were given. All questions were answered. She demonstrated understanding and was in agreement this plan. She was then discharged from the emergency department in stable condition. Critical Care Critical Care Time Critical Care Time: No
[2024-10-01] MEDS: LACTATED RINGERS 1000ML 1,000 ML 999 ML IV (22:27)
[2024-10-01] MEDS: KETOROLAC 30MG/ML VIAL 15 MG IV (22:28)
[2024-10-01] MEDS: DEXAMETHASONE 4MG/ML 1ML VIAL 10 MG IV (22:28)
[2024-10-01] MEDS: PROCHLORPERAZINE 10MG/2ML VIAL 10 MG IV (22:28)
[2024-10-01 23:10] VITALS: BP 104/62; PULSE 39; RESP 16; TEMP 37.1; O2SAT 94
== END 2024-10-01 23:16 | disposition home or self-care (01) ==
PROVIDERS: Emergency Provider Student in an Organized Health Care Education/Training Program
DX: G43.909 Migraine, unspecified, not intractable, without status migrainosus (principal); R11.2 Nausea with vomiting, unspecified
CPT/HCPCS: 96361; 96374; 96375; 99284; J0780; J1100; J1200; J1885; J7120

== ENCOUNTER 2024-10-10 09:23 | Emergency (ER) | payer SELFPAY ==
[2024-10-10 09:24] VITALS: BP 123/66; PULSE 58; RESP 18; TEMP 36.5; O2SAT 98; BMI 25.4
--- NOTE | 2024-10-10 09:26 | PC.NURSE ---
pt attempting to give urine & stool sample
--- NOTE | 2024-10-10 09:38 | ED_ITS ---
Discharge Plan Disposition Patient Disposition: Home, Self-Care Prescriptions Prescriptions: New nitrofurantoin macrocrystal 100 mg capsule 100 mg PO BID 5 Days Qty: 10 0RF Rx Instructions: must administer with a meal/food ondansetron 4 mg tablet,disintegrating 4 mg PO Q6H PRN (Reason: nausea and vomiting) Qty: 16 0RF Referrals Follow up/Referrals: Provider,Referral, MD [Primary Care Provider, Medical] - See instructions Activity Restrictions/Add. Instructions Additional Instructions/Restrictions: You were found to have a urinary tract infection. I am prescribing Macrobid, an antibiotic. Take this twice daily for 5 days as prescribed. You are also being prescribed Zofran to help with nausea. I do encourage you to continue drinking plenty of fluids, such as water, sugar-free Gatorade and Pedialyte to stay hydrated. You were incidentally found to have narrowing of one of the arteries in your left leg. I encourage you to call [facility] in [place] to get set up with a vascular surgeon, however this is not likely to be the source of your symptoms today. If you develop any new or worsening symptoms, or if you become concerned for your health for any reason, return to the emergency department for evaluation Clinical Impressions Clinical Impression: Urinary tract infection, Diarrhea, Iliac artery stenosis, left Stand Alone Forms Stand Alone Forms: Work/School Release Instructions Patient Instructions: DI for Diarrhea and Traveler's Diarrhea -- Adult, DI for Nausea -- Adult Print Language Print Language: Bulgarian Discharge ED Provider: Herman Curry Adult HPI General Chief complaint: Nausea/Vomiting/Diarrhea Stated complaint: diarrhea, very weak Time Seen by Provider: 10/10/24 09:28 History of Present Illness HPI narrative: Lilibeth Floyd is a 54y female with a history of hysterectomy, migraines, COPD who presents to the emergency department for complaints of diarrhea and abdominal pain and poor appetite. Patient states that her daughter had a similar illness that lasted 5 to 6 days but has improved, describing symptoms as diarrhea and abdominal pain. Patient states that her symptoms started (4 days ago) with nausea vomiting, lower abdominal pain describing it as a punched in the gut and multiple episodes of loose, nonbloody diarrhea. She states that she is having 3-4 diarrhea episodes daily, usually at night. She denies any fevers. She states that she does not have much of an appetite but has not been vomiting except for the first night. She denies any dysuria or hematuria. Related Data Previous Rx's ?Medication ?Instructions ?Recorded nitrofurantoin macrocrystal 100 mg 100 mg PO BID 5 day s #10 caps 10/10/24 capsule ondansetron 4 mg disintegrating 4 mg PO Q6H PRN nausea and 10/10/24 tablet vomiting #16 tabs Allergies Allergy/AdvReac Type Severity Reaction Status Date / Time No Known Allergies Allergy Verified 10/01/24 21:58 [facility] Disclaimer: The information contained in this section may have been updated after the patient was seen, as this information can be updated by other users. 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 Nasal valve collapse I think she is noticed over the last few years that the cartilage of the dorsum is not as resilient as it once was. Nasal dorsal issue seems to be minor in comparison with her airflow problems. Ovarian cancer Schizophrenia COPD (chronic obstructive pulmonary disease) Syncope Palpitations Chest pain Surgical History History of eye surgery H/O wisdom tooth extraction H/O: hysterectomy Family History Other No significant family history Social History Smoking Status: Current every day smoker smoking status stop date: 05/29/24 quit status: considering quitting second hand exposure: Yes alcohol intake: never substance use type: marijuana current occupational status: disabled Travel in the last 8 weeks?: None housing: house number of children: 3 caffeine: Yes Have you lived/traveled outside US in past 30 days?: No Contact w/someone who lives/traveled outside US past 30 days?: No Exposure to someone with infectious disease in past 14 days?: No Do you have a fever (greater than 100.4 F or 38 C)?: No Have you tested positive for COVID-19?: No Exposed to someone with COVID-19 in past 14 days?: No Do you have a sore throat?: No Do you have a cough?: No Do you have any weakness?: No Do you have any diarrhea?: No Are you experiencing any unusual bleeding?: No Do you have any muscle aches/pain?: No Do you have any abdominal pain?: No Are you experiencing loss of taste or smell?: No Other 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 Have you received the Flu Vaccine for this season: No Have you received the Pneumonia Vaccine: No ROS Obtained: Yes Systems reviewed as appropriate & no additional complaints except as documented Physical Exam General General appearance: alert and in no apparent distress Comment: ill appearing Head Head exam: atraumatic Eye Eye exam: Present normal appearance ENT ENT exam: Present mucous membranes dry and normal external ear exam Neck Neck exam: Present full ROM Chest Chest inspection: Present symmetric chest wall rise Respiratory Respiratory exam: Present normal lung sounds bilaterally; Absent respiratory distress, wheezes or stridor Cardiovascular Cardiovascular exam: Present regular rate and normal rhythm Abdominal Exam Abdominal exam: Present soft, tenderness (Left lower quadrant, right lower quadrant, suprapubic) and guarding (Left lower quadrant, suprapubic and right lower quadrant); Absent rebound or rigidity Extremities Exam Extremities exam: Present normal inspection Back Exam Back exam: Present normal inspection Neurological Exam Neurological exam: Present alert and oriented X3 Psychiatric Psychiatric exam: Present normal affect Skin Skin exam: Present warm and dry Medical Decision Making Medical Records Screening: Per USPSTF and CDC recommendations, given the prevalence of disease in our region, it is our hospital?s policy to screen for HIV and viral Hepatitis for all patients aged 18 and over and those with ongoing risk factors. Dariel Inquiry Pt receiving controlled substance: No Vital Signs: 10/10/24 09:24 10/10/24 10:00 Temperature 97.7 F Temperature Source Oral Pulse Rate 52 L Pulse Rate [Right] 58 L Respiratory Rate 18 18 Blood Pressure [Right Arm] 123/66 Blood Pressure Mean [Right Arm] 85 Blood Pressure Source [Right Arm] Automatic Cuff 02 Sat by Pulse Oximetry 98 95 Oxygen Delivery Method Room Air Room Air Lab Data Lab Results 10/10/24 09:30: Urine Color Yellow, Urine Appearance Clear, Urine pH 6.0, Ur Specific Burson <= 1.005, Urine Protein Negative, Urine Glucose (UA) Negative, Urine Ketones Negative, Urine Blood Negative, Urine Nitrate Positive A, Urine Bilirubin Negative, Urine Urobilinogen 0.2, Ur Leukocyte Esterase 1+ A, Urine RBC None, Urine WBC 10-20, Ur Squamous Epith Cells 3-5, Urine Bacteria 2+ 10/10/24 09:40: WBC 6.3, RBC 4.80, Hgb 14.6, Hct 43.8, MCV 91.3, MCH 30.4, MCHC 33.3, RDW 13.7, Plt Count 207, MPV 11.5 H, Neut % (Auto) 57.0, Lymph % (Auto) 32.5, Ulster % (Auto) 6.3, Eos % (Auto) 3.3, Baso % (Auto) 0.6, Neut # (Auto) 3.6, Lymph # (Auto) 2.1, Ulster # (Auto) 0.4, Eos # (Auto) 0.2, Baso # (Auto) 0.0, VBG pH 7.31, VBG pCO2 50.2, VBG pO2 39.5, VBG HCO3 24.7, VBG Total CO2 26.2, VBG O2 Saturation 74.1 H, VBG Base Excess -1.5, VBG Lactic Acid 1.6, Sodium 140, Potassium 4.3, Chloride 108 H, Carbon Dioxide 24, Anion Gap 12.3, BUN 18 H, Creatinine 0.70, Estimated Creat Clear 87, Estimated GFR 88, Est GFR ( Amer) 106, Glucose 86, Calcium 9.6, Total Bilirubin 0.4, AST 28, ALT 12, Alkaline Phosphatase 80, C-Reactive Protein 5.9 H, Total Protein 7.9, Albumin 4.7, Globulin 3.2, Albumin/Globulin Ratio 1.5, Lipase 255, Serum HCG, Qual Negative 10/10/24 09:40 10/10/24 09:40 Orders (Tests/Meds): ED MEDICATIONS Generic Name Dose Route Start Last Admin Trade Name Freq PRN Reason Stop Dose Admin Sodium Chloride 10 ml 10/10/24 10:20 Sodium Chloride 0.9% 10ml Syr (Rad Only) IV 11/09/24 10:19 NEEDED PRN Maintain IV Site Discontinued Medications Generic Name Dose Route Start Last Admin Trade Name Freq PRN Reason Stop Dose Admin Dicyclomine HCl 20 mg 10/10/24 11:18 10/10/24 11:27 Dicyclomine 10mg Capsule PO 10/10/24 11:19 20 mg ONCE ONE Administration Lactated Ringer's 1,000 mls @ 999 mls/hr 10/10/24 09:56 10/10/24 11:31 Lactated Ringer's 1000 Ml Bag IV 10/10/24 10:56 Infused .Q1H1M ONE Infusion Iopamidol 75 ml 10/10/24 10:20 Iopamidol-370 (76%);100ml Bottle IV 10/10/24 10:21 ONCE ONE Ondansetron HCl 4 mg 10/10/24 09:56 10/10/24 10:07 Ondansetron 4mg/2ml Vial IV 10/10/24 09:57 4 mg ONCE ONE Administration ORDERS Category Date Time Status CT abdomen pelvis w con Stat Cat Scan 10/10/24 09:56 Completed CBC w/Auto Diff [Complete Blood Count Auto Diff] Stat Lab 10/10/24 09:40 Completed CMP [Comprehensive Metabolic Panel] Stat Lab 10/10/24 09:40 Completed CRP [C-Reactive Protein] Stat Lab 10/10/24 09:40 Completed Lipase Stat Lab 10/10/24 09:40 Completed Serum [HCG Qualitative, Serum] Stat Lab 10/10/24 09:40 Completed UA [Urinalysis and Microscopic] Stat Lab 10/10/24 09:56 Ordered Urinalysis and Microscopic Stat Lab 10/10/24 09:30 Completed Stool Culture Stat Micro 10/10/24 09:57 Ordered Urine Culture Stat Micro 10/10/24 09:30 Received VBG [Venous Blood Gas] Stat RT 10/10/24 09:40 Completed Medical Decision Narrative: Lilibeth Floyd is a 54y female with a history of hysterectomy, migraines, COPD who presents to the emergency department for complaints of diarrhea and abdominal pain and poor appetite. Patient states that her daughter had a similar illness that lasted 5 to 6 days but has improved, describing symptoms as diarrhea and abdominal pain. Patient states that her symptoms started (4 days ago) with nausea vomiting, lower abdominal pain describing it as a punched in the gut and multiple episodes of loose, nonbloody diarrhea. She states that she is having 3-4 diarrhea episodes daily, usually at night. She denies any fevers. She states that she does not have much of an appetite but has not been vomiting except for the first night. She denies any dysuria or hematuria. On arrival, patient is mildly bradycardic with heart rate of 58 (this is her baseline), normotensive, afebrile, maintaining appropriate oxygen saturation on room air. Physical exam, stated above, revealed nontoxic-appearing female in no distress. She has mildly dry mucous membranes. Cardiopulmonary exam is unremarkable. Abdomen with tenderness in the right lower quadrant, left lower quadrant and suprapubic area with abdomen is nondistended and nonperitonitic. Guarding in these areas. Differential diagnosis includes, but is not limited to: Viral gastroenteritis, infectious colitis, diverticulitis, bowel obstruction, appendicitis, urinary tract infection, electrolyte derangement, among others. The most morbid conditions were considered and workup was based on these. Workup in the emergency department included: CT abdomen pelvis with IV contrast, 1 L lactated ringer, 4 mg IV Zofran, urinalysis, stool culture, VBG with lactate, serum test, CMP, CBC with differential, CRP, lipase Laboratory studies show no leukocytosis, no anemia, normal lactate, pH normal at 7.31. Electrolytes within normal limits except for mild elevation in chloride of 108. BUN mildly elevated at 18 but no RAJ. Liver enzymes and bilirubin within normal limits. His CRP is very mildly elevated at 5.9. Lipase normal at 2 and 55. Negative test. Urinalysis shows positive nitrates, 1+ leukocyte Estrace, 2+ bacteria and 10-20 white blood cells concerning for urinary tract infection. CT imaging interpreted by me personally. No acute findings within the abdomen pelvis. Patient is noted to have left common iliac artery stenosis that appears similar from previous studies. Per radiology, possible occlusion of the left external iliac artery. On reassessment, patient is not having any symptoms in her lower extremities. Occasionally she states that she will have pain in both legs when she carries her grandchild but otherwise has no claudication. Is felt that she is appropriate discharge at this time and recommend follow-up with [facility] to get established with a vascular surgeon for her incidental finding of iliac artery stenosis. Will be prescribing Zofran for nausea as well as Macrobid for her urinary tract infection. On top of this, she also likely has a viral gastrointestinal illness causing her diarrhea. She was unable to provide a stool sample during her ED visit. I encouraged her to continue hydrating at home. Return precautions were given. All questions were answered. She demonstrated understanding and was in agreement this plan. She was then discharged from the emergency department in stable condition Critical Care Critical Care Time Critical Care Time: No
[2024-10-10 09:39] LABS: Microscopic, Urine URINE MICROSCOPIC (MICROSCOPIC)
[2024-10-10 09:43] LABS: Bilirubin,Urine Negative (Negative); Color,Urine YELLOW (Yellow); Glucose,Urine (UA) Negative (Negative); Ketones,Urine Negative (Negative); Leukocyte Esterase,Urine 1+ (Negative); PH,Urine 6.0 (5.0-8.5); Protein,Urine Negative (Negative); Specific Gravity, Urine <= 1.005 (1.005-1.030); Urobilinogen,Urine 0.2 EU/dl (0.2)
[2024-10-10 09:55] LABS: Bacteria,Urine 2+ /lpf
--- NOTE | 2024-10-10 09:56 | CT_ITS ---
FINAL REPORT TECHNIQUE: Thin section axial images are obtained through the abdomen and pelvis after intravenous contrast. Reconstruction images were obtained from the axial data. Exam was performed using dose reduction techniques. This study was performed with techniques to keep radiation doses as low as reasonably achievable (ALARA). Individualized dose reduction techniques using automated exposure control or adjustment of mA and/or kV according to the patient's size were employed. CLINICAL HISTORY: Diarrhea, lower abdominal pain COMPARISON: CTA of the abdomen 12/20/2022 FINDINGS: LUNG BASES: Lung bases are clear. Heart size is normal. LIVER: Homogeneous. No focal lesion. GALLBLADDER/BILIARY SYSTEM: Gallbladder is present. No gallstones. No biliary dilatation. SPLEEN: Unremarkable. PANCREAS: Unremarkable. ADRENALS: Unremarkable. KIDNEYS/URETERS/BLADDER: No hydronephrosis, renal mass, or renal stone. Unremarkable urinary bladder. GI TRACT: No small bowel obstruction or dilatation. Normal appendix. No acute colon abnormality. PELVIC ORGANS: Unremarkable for age. The uterus is absent. LYMPH NODES/RETROPERITONEUM/MESENTERY: No lymphadenopathy. No abdominal aortic aneurysm. 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 The proximal aspect of the left internal iliac artery may be occluded. ABDOMINAL WALL: The abdominal wall is intact. FREE FLUID: No ascites. BONES: No acute osseous abnormality. IMPRESSION: Moderate to severe left common iliac artery stenosis is present, and was seen on the prior CTA of 12/20/2022. The left internal iliac artery may be occluded. Solid organs and bowel are unremarkable in appearance. Reviewed, Interpreted and Dictated by Chen Shipley MD Transcribed by Angie Loaiza Authenticated and [facility]
[2024-10-10 10:00] VITALS: PULSE 52; RESP 18; O2SAT 95
[2024-10-10 10:05] LABS: Chloride 108 mmol/L (98-107)
[2024-10-10 10:06] LABS: Albumin Level 4.7 g/dl (3.5-5.0); Hematocrit 43.8 % (37.0-47.0); Hemoglobin 14.6 g/dL (12.2-16.2); Immature Granulocytes % 0.3 %; Lactate Venous 1.6 mmol/L (0.4-2.0); Mean Corpuscular HGB Conc 33.3 g/dL (31.8-35.4); Mean Corpuscular Hemoglobin 30.4 pg (27.0-31.2); Mean Corpuscular Volume 91.3 fl (81-99); Nucleated Red Blood Cells % 0 %; Platelet Count 207 K/mm3 (142-424); Potassium 4.3 mmoL/L (3.5-5.1); Red Blood Count 4.80 M/mm3 (4.20-5.40); Red Cell Distribution Width-SD 46.3 fL; Sodium 140 mmol/L (136-145); VBG HCO3 24.7 mmol/L (23-30); VBG PH 7.31 mmol/L (7.31-7.41); VBG PO2 39.5 mmol/L (28-40); White Blood Count 6.3 K/mm3 (4.8-10.8)
[2024-10-10] MEDS: ONDANSETRON 4MG/2ML VIAL 4 MG IV (10:07)
[2024-10-10] MEDS: LACTATED RINGERS 1000ML 1,000 ML 999 ML IV (10:07)
[2024-10-10 10:08] LABS: Alanine Aminotransferase 12 U/L (12-78); Anion Gap 12.3 mEq/L (5-15); Aspartate Amino Transferase 28 U/L (14-36); Blood Urea Nitrogen 18 mg/dl (7-17); Carbon Dioxide 24 mmol/L (22.0-30.0); Creatinine Clearance Estimated 87 mL/min (50-200); Creatinine,Serum 0.70 mg/dl (0.52-1.04); Estimated Glomerular Filt Rate 88 ml/min (>60); GFR (African American) 106 ML/MIN (>60); VBG PCO2 50.2 mmol/L (35-51)
--- NOTE | 2024-10-10 10:08 | PC.NURSE ---
Dr. Curry notified of ABG results. pH 7.31, CO2 50, PO2 39.
[2024-10-10 10:09] LABS: Albumin/Globulin Ratio 1.5 (1.1-1.8); Alkaline Phosphatase 80 U/L (38-126); Bilirubin,Total 0.4 mg/dl (0.2-1.3); Calcium 9.6 mg/dl (8.4-10.2); Globulin 3.2 g/dL (1.3-3.2); Glucose 86 mg/dl (74-100); Total Protein,Serum 7.9 g/dl (6.3-8.2)
[2024-10-10 10:13] LABS: HCG Qualitative, Serum Negative (Negative)
[2024-10-10 10:14] LABS: C-Reactive Protein 5.9 mg/L (0-4); Lipase 255 U/L (23-300)
--- OUTSIDE RECORDS SUMMARY | 2024-10-10 10:39 | XMS_ITS | Clinical Summary ---
Author Organization Healthcare Address [address] [place] [id number] Care Team Providers Care Welt Sewer Name Role Phone Phil Khalil MD Primary Care Provider [phone] Allergies No known active allergies Active Problems Problem Noted Date Diagnosed Date Fall 07/13/2024 Encounters Date Type Department Care Team Description 07/13/2024 9:57 PM EDT - 07/13/2024 10:46 PM EDT Emergency [facility] [address] [place] [address] Tejas Rosenberg MD Fall, initial encounter (Primary [...] 2021 UKY-Zoster Vaccines (1 of 2) 2021 LPT-FQMHP-15 Vaccine (3 - season) 2023 09/18/2020, 06/06/2020 [...] Narrative SUNQUEST - 11/01/2003 1:10 PM EDT [facility] MR #: [id number] [facility] [address] [place], [place] [address] 1970 (Age: 33) FW Collect Date: 10/24/2003 00:00 Receipt Date: 10/25/2003 10:52 Page 1 DEPARTMENT OF PATHOLOGY AND LABORATORY MEDICINE CYTOPATHOLOGY REPORT Email: [email or web address] [phone] ATTENDING MD/Practitioner: Sonia Pratt MD Service: [facility] Location: [facility] Reported: 11/01/2003 13:10 Collected: 10/24/2003 00:00 INTERPRETATION THIN PREP (CERVICAL/VAGINAL): NEGATIVE FOR INTRAEPITHELIAL LESION OR MALIGNANCY. SATISFACTORY FOR EVALUATION; ENDOCERVICAL/ TRANSFORMATION ZONE COMPONENT PRESENT. Slide scanned and imaged by [employer] ThinPrep Imaging System with manual review of [...] results is suggested (please call Microbiology at [phone] for results). CLINICAL INFORMATION: Menstrual History: Cyclic Date of Last Menstrual Period: {Not Provided} SPECIMEN DESCRIPTION: A: THIN PREP (CERVICAL/VAGINAL) THIN PREP PROCESS CELLULAR ENHANCEMENT ICD: V76.2 CERVIX, SPECIAL SCREENING FOR MALIGNANT NEOPLASM F: A; RT IMAGE [id number] SNOMED CODES: A; [id number] [id number] In cases where a pathologist has signed out the report, the service has been rendered in part by a resident. The signing pathologist has performed and is responsible for the reported pathologic evaluation. us Historical Provider LAB PATHOLOGY ORDERABLES Fin al Result SUNQUEST from Last 3 Months or Most Recently Relevant to Health Maintenance Insurance [facility] MEDICAID Care Teams Welt Sewer Relationship Specialty Start Date End Date Phil Khalil MD [address] [place] [id number] PCP - General 06/29/20
--- NOTE | 2024-10-10 11:36 | PC.NURSE ---
Called radiology to check on the status of ct read. Leyda states she will check on it. updated .
[2024-10-10 12:00] VITALS: BP 129/66; PULSE 42; RESP 16; TEMP 36.5; O2SAT 98
[2024-10-10 12:05] VITALS: BP 126/66; PULSE 42; RESP 16; TEMP 36.7; O2SAT 100
--- NOTE | 2024-10-11 08:12 | PC.NURSE ---
Urine culture results reviewed by Dr. Curry. No new orders received.
== END 2024-10-10 12:06 | disposition home or self-care (01) ==
PROVIDERS: Emergency Provider Student in an Organized Health Care Education/Training Program
DX: N39.0 Urinary tract infection, site not specified (principal); R19.7 Diarrhea, unspecified; I77.1 Stricture of artery; F41.1 Generalized anxiety disorder; F17.210 Nicotine dependence, cigarettes, uncomplicated
CPT/HCPCS: 74177; 80053; 81001; 82803; 83690; 84703; 85025; 86140; 87086; 87088; 87186; 96361; 96374; 99285; J2405; J7120

== ENCOUNTER 2024-10-14 11:32 | Emergency (ER) | payer SELFPAY ==
[2024-10-14 11:40] VITALS: BP 142/77; PULSE 69; RESP 16; TEMP 36.7; O2SAT 99; BMI 25.0
--- OUTSIDE RECORDS SUMMARY | 2024-10-14 11:40 | XMS_ITS | Clinical Summary ---
Author Organization Healthcare Address [address] [place] [address] Care Team Providers Care Communications Marketing Intern Name Role Phone Phil Khalil MD Primary Care Provider Allergies No known active allergies Active Problems Problem Noted Date Diagnosed Date fall07/13/2024 Social History Tobacco Use Types Packs/Day Years [...] UKY-HIV Screening 1970 UKY-Hepatitis C Screening 1970 UKY-/Child/Adol SDOH Screenings 1970 UKY- SDOH Screenings 1989 [...] 2021 UKY-Zoster Vaccines (1 of 2) 2021 FLB-PAFQV-50 Vaccine (3 - season) 2023 09/18/2020, 06/06/2020 [...] PM EDT [facility] MR #: [id number] [facility] [address] [place], [place] [address] 1970 (Age: 33) FW Collect Date: 10/24/2003 00:00 Receipt Date: 10/25/2003 10:52 Page 1 DEPARTMENT OF PATHOLOGY AND LABORATORY MEDICINE CYTOPATHOLOGY REPORT Email: [email or web address] ATTENDING MD/Practitioner: Sonia Pratt MD Service: [facility] Location: [facility] Reported: 11/01/2003 13:10 Collected: 10/24/2003 00:00 INTERPRETATION THIN PREP (CERVICAL/VAGINAL): NEGATIVE FOR INTRAEPITHELIAL LESION OR MALIGNANCY. SATISFACTORY FOR EVALUATION; ENDOCERVICAL/ TRANSFORMATION ZONE COMPONENT PRESENT. Slide scanned and imaged by [employer] ThinPrep Imaging System with manual review of [...] results is suggested (please call Microbiology at [phone] for results). CLINICAL INFORMATION: Menstrual History: Cyclic Date of Last Menstrual Period: {Not Provided} SPECIMEN DESCRIPTION: A: THIN PREP (CERVICAL/VAGINAL) THIN PREP PROCESS CELLULAR ENHANCEMENT ICD: V76.2 CERVIX, SPECIAL SCREENING FOR MALIGNANT NEOPLASM F: A; RT IMAGE [id number] SNOMED CODES: A; [id number] [id number] [id number] In cases where a pathologist has signed out the report, the service has been rendered in part by a resident. The signing pathologist has performed and is responsible for the reported pathologic evaluation. us Historical Provider LAB PATHOLOGY ORDERABLES Fin al Result SUNQUEST from Last 3 Months or Most Recently Relevant to Health Maintenance Insurance [facility] MEDICAID Care Teams Communications Marketing Intern Relationship Specialty Start Date End Date Phil Khalil MD [address] [place] [address] PCP - General 06/29/20
[2024-10-14] MEDS: DEXAMETHASONE 4MG TABLET 10 MG PO (12:03)
--- NOTE | 2024-10-14 12:15 | PC.NURSE ---
patient called out while i was in medicating chair 14 stating she wa ready to leave if benadryl and steroids was all she was getting. provider notified
--- NOTE | 2024-10-14 12:30 | PC.NURSE ---
patient walked back to nurses station stating she was ready to go and was going to leave on her own if nothing else is done. kathy douglas stated to patient provider was in procedure staff would let him know.
--- NOTE | 2024-10-14 12:35 | PC.NURSE ---
registration called at this time jaleesag patient walked out
--- NOTE | 2024-10-14 12:41 | ED_ITS ---
Discharge Plan Disposition Patient Disposition: Eloped Condition: Good Chief Complaint: Allergic Reaction Prescriptions Prescriptions: No Action nitrofurantoin macrocrystal 100 mg capsule 100 mg PO BID 5 Days Qty: 10 0RF Rx Instructions: must administer with a meal/food ondansetron 4 mg tablet,disintegrating 4 mg PO Q6H PRN (Reason: nausea and vomiting) Qty: 16 0RF Referrals Follow up/Referrals: Provider,Referral, MD [Primary Care Provider, Medical] - See instructions Clinical Impressions Clinical Impression: Allergic reaction Print Language Print Language: Armenian Discharge ED Provider: Rocael Monae General Adult HPI General Chief complaint: Allergic Reaction Stated complaint: States she may have allergic reaction to meds Time Seen by Provider: 10/14/24 11:36 Mode of Arrival: Ambulatory Source of Information: Patient Description of Symptoms (Recalled from ER Triage Doc. by RN): patient states she started taking macrobid 2 days ago and woke up today with red itchy skin all over. denies SOB History of Present Illness HPI narrative: Current this is a 54-year-old female patient who is presented to the emergency department today for evaluation of allergic reaction. Patient states that she has been taking Macrobid for the last few days after she was seen here in our emergency department and diagnosed with a urinary tract infection. She states that she started taking the Macrobid 2 days ago, and for the last 2 days she has had progressively worsening pruritus as well as urticaria. She states this initially appeared on her extremities but has now progressed to her thorax. She has not had any shortness of breath, wheezing, nausea, vomiting, diarrhea, or abdominal pain/cramping. Related Data Previous Rx's ?Medication ?Instructions ?Recorded nitrofurantoin macrocrystal 100 mg 100 mg PO BID 5 day s #10 caps 10/10/24 capsule ondansetron 4 mg disintegrating 4 mg PO Q6H PRN nausea and 10/10/24 tablet vomiting #16 tabs Allergies Allergy/AdvReac Type Severity Reaction Status Date / Time nitrofurantoin (From AdvReac Hives Verified 10/14/24 12:05 Macrobid) [facility] Disclaimer: The information contained in this section may have been updated after the patient was seen, as this information can be updated by other users. 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 Nasal valve collapse I think she is noticed over the last few years that the cartilage of the dorsum is not as resilient as it once was. Nasal dorsal issue seems to be minor in comparison with her airflow problems. Ovarian cancer Schizophrenia COPD (chronic obstructive pulmonary disease) Syncope Palpitations Chest pain Surgical History History of eye surgery H/O wisdom tooth extraction H/O: hysterectomy Family History Other No significant family history Social History Smoking Status: Current every day smoker smoking status stop date: 05/29/24 quit status: considering quitting second hand exposure: Yes alcohol intake: never substance use type: marijuana current occupational status: disabled Travel in the last 8 weeks?: None housing: house number of children: 3 caffeine: Yes Have you lived/traveled outside US in past 30 days?: No Contact w/someone who lives/traveled outside US past 30 days?: No Exposure to someone with infectious disease in past 14 days?: No Do you have a fever (greater than 100.4 F or 38 C)?: No Have you tested positive for COVID-19?: No Exposed to someone with COVID-19 in past 14 days?: No Do you have a sore throat?: No Do you have a cough?: No Do you have any weakness?: No Do you have any diarrhea?: No Are you experiencing any unusual bleeding?: No Do you have any muscle aches/pain?: No Do you have any abdominal pain?: No Are you experiencing loss of taste or smell?: No Other 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 Have you received the Flu Vaccine for this season: No Have you received the Pneumonia Vaccine: No ROS Obtained: Yes Systems reviewed as appropriate & no additional complaints except as documented Physical Exam General General appearance: other (See MDM) Respiratory Respiratory exam: Present other (See MDM) Cardiovascular Cardiovascular exam: Present other (See MDM) Neurological Exam Neurological exam: Present other (See MDM) Medical Decision Making Medical Records Medical records reviewed: Yes I reviewed the patient's medical records. Screening: Per USPSTF and CDC recommendations, given the prevalence of disease in our region, it is our hospital?s policy to screen for HIV and viral Hepatitis for all patients aged 18 and over and those with ongoing risk factors. Dariel Inquiry Pt receiving controlled substance: No Dariel was queried for this patient: No Vital Signs: 10/14/24 11:40 10/14/24 12:48 Temperature 98.1 F 98.1 F Temperature Source Oral Oral Pulse Rate 69 Pulse Rate [Right Radial] 69 Respiratory Rate 16 16 Blood Pressure 142/77 H Blood Pressure [Right Arm] 142/77 H Blood Pressure Mean [Right Arm] 98 Blood Pressure Source Automatic Cuff Blood Pressure Source [Right Arm] Automatic Cuff Blood Pressure Position Sitting Blood Pressure Position [Right Arm] Sitting 02 Sat by Pulse Oximetry 99 Oxygen Delivery Method Room Air Room Air Orders (Tests/Meds): ED MEDICATIONS Discontinued Medications Generic Name Dose Route Start Last Admin Trade Name Freq PRN Reason Stop Dose Admin Dexamethasone 10 mg 10/14/24 11:58 10/14/24 12:03 Dexamethasone 4mg Tablet PO 10/14/24 11:59 10 mg ONCE ONE Administration Diphenhydramine HCl 50 mg 10/14/24 11:59 10/14/24 12:03 Diphenhydramine 50mg Capsule PO 10/14/24 12:00 50 mg ONCE ONE Administration Medical Decision Narrative: In summary, this is a 54-year-old female patient who is presenting to the emergency department today for evaluation of an allergic reaction. The patient states that this is in the setting of recently starting Macrobid which is a new medication to her. On initial evaluation of the patient they were resting comfortably in no acute distress and nontoxic in appearance. They are hemodynamically stable, saturating well room air, and are neurologically intact. On physical examination the patient does have an urticarial rash on her trunk as well as her extremities. She has no oropharyngeal edema. No angioedema of the face. She has no wheezes on exam. No abdominal tenderness to palpation. Differential diagnosis includes allergic urticaria, allergic reaction, medication adverse reaction, among others. This patient does not have 2 system involvement to implicate anaphylaxis. She also does not have any mucous membrane sloughing and she does not have a Nikolsky sign to implicate Reyes- Wesley syndrome that may be associated with sulfa drug use. No labs or imaging are indicated for this workup. Initial interventions included Benadryl as well as dexamethasone administered orally. I did discuss with the patient her need for ongoing antibiotic therapy given that she grew greater than 100,000 colony-forming units of E. coli. I have offered to prescribe additional antibiotics to the patient and she states that she will not be taking any more antibiotics that she does not want me to prescribe her with an antibiotic due to the fact that she does not want to take the antibiotic and due to the fact that she does not feel that she would be able to afford this at the pharmacy. I tried to give the patient the opportunity for me to prescribe her an antibiotic that would be of reasonable blanc, however the patient still declined. Prior to me being able to reassess the patient after our interventions she elop ed from the emergency department. Critical Care Critical Care Time Critical Care Time: No
[2024-10-14 12:48] VITALS: BP 142/77; PULSE 69; RESP 16; TEMP 36.7; O2SAT 99
== END 2024-10-14 12:49 | disposition left against medical advice (07) ==
PROVIDERS: Emergency Provider Student in an Organized Health Care Education/Training Program
DX: T78.40XA Allergy, unspecified, initial encounter (principal); L50.0 Allergic urticaria; L29.9 Pruritus, unspecified; F17.200 Nicotine dependence, unspecified, uncomplicated
CPT/HCPCS: 99282; 99283; J8540

== ENCOUNTER 2024-12-06 08:07 | Emergency (ER) | payer SELFPAY ==
[2024-12-06 08:15] VITALS: BP 128/107; PULSE 79; O2SAT 98
--- OUTSIDE RECORDS SUMMARY | 2024-12-06 08:15 | XMS_ITS | Clinical Summary ---
Author Organization Healthcare Address [address] [place] [address] Care Team Providers Care Converting Supervisor Name Role Phone Phil Khalil MD Primary Care Provider [phone] Allergies No known active allergies Active Problems [...] 2021 UKY-Zoster Vaccines (1 of 2) 2021 BGQ-BOLIU-27 Vaccine (3 - season) 2024 09/18/2020, 06/06/2020 UKY-Influenza Vaccine (#1) 10/17/202404/06, 01/05/2017 [...] Narrative SUNQUEST - 11/01/2003 1:10 PM EDT [facility] MR #: [id number] [facility] [address] [place], [place] [address] 1970 (Age: 33) FW Collect Date: 10/24/2003 00:00 Receipt Date: 10/25/2003 10:52 Page 1 DEPARTMENT OF PATHOLOGY AND LABORATORY MEDICINE CYTOPATHOLOGY REPORT Email: [email or web address] [phone] ATTENDING MD/Practitioner: Sonia Pratt MD Service: [facility] Location: [facility] Reported: 11/01/2003 13:10 Collected: 10/24/2003 00:00 INTERPRETATION THIN PREP (CERVICAL/VAGINAL): NEGATIVE FOR INTRAEPITHELIAL LESION OR MALIGNANCY. SATISFACTORY FOR EVALUATION; ENDOCERVICAL/ TRANSFORMATION ZONE COMPONENT PRESENT. Slide scanned and imaged by [employer] ThinPrep Imaging System with manual review of [...] results is suggested (please call Microbiology at [phone] for results). CLINICAL INFORMATION: Menstrual History: Cyclic Date of Last Menstrual Period: {Not Provided} SPECIMEN DESCRIPTION: A: THIN PREP (CERVICAL/VAGINAL) THIN PREP PROCESS CELLULAR ENHANCEMENT ICD: V76.2 CERVIX, SPECIAL SCREENING FOR MALIGNANT NEOPLASM F: A; RT IMAGE [id number] SNOMED CODES: A; [id number] [id number] [id number] [id number] In cases where a pathologist has signed out the report, the service has been rendered in part by a resident. The signing pathologist has performed and is responsible for the reported pathologic evaluation. us Historical Provider LAB PATHOLOGY ORDERABLES Fin al Result SUNQUEST from Last 3 Months or Most Recently Relevant to Health Maintenance Insurance [facility] MEDICAID Care Teams Converting Supervisor Relationship Specialty Start Date End Date Phil Khalil MD [address] [place] [address] PCP - General 06/29/20
[2024-12-06 08:16] VITALS: BP 128/107; PULSE 87; RESP 16; TEMP 36.8; O2SAT 98; BMI 25.4
--- NOTE | 2024-12-06 08:26 | XR_ITS ---
FINAL REPORT CLINICAL HISTORY: Cough, chest pain COMPARISON: 01/27/2024 FINDINGS: PA and lateral views of the chest were obtained. No acute pulmonary density is evident. Emphysematous changes are noted. There is no evidence of effusion or other pleural disease. The mediastinum has a normal appearance. The cardiac silhouette is unremarkable. IMPRESSION: No acute cardiopulmonary process. Reviewed, Interpreted and Dictated by Linda Ashley MD Transcribed by Nadeen Aguilar Authenticated and [facility]
--- NOTE | 2024-12-06 08:28 | HMH.EDGENADL ---
Discharge Plan Disposition Patient Disposition: Home, Self-Care Prescriptions Prescriptions: No Action nitrofurantoin macrocrystal 100 mg capsule 100 mg PO BID 5 Days Qty: 10 0RF Rx Instructions: must administer with a meal/food ondansetron 4 mg tablet,disintegrating 4 mg PO Q6H PRN (Reason: nausea and vomiting) Qty: 16 0RF Referrals Follow up/Referrals: Provider,Referral, MD [Primary Care Provider, Medical] - See instructions Activity Restrictions/Add. Instructions Additional Instructions/Restrictions: Use the albuterol inhaler, 2 puffs every 4 hours as needed. You likely have a viral illness that is causing bronchitis that should resolve over time. Follow-up with your primary care physician as needed. If you develop any new or worsening symptoms, or if you become concerned for your health for any reason, return to the emergency department for evaluation Clinical Impressions Clinical Impression: Bronchitis Stand Alone Forms Stand Alone Forms: Work/School Release Instructions Patient Instructions: Cough Print Language Print Language: Bengali Discharge ED Provider: Herman Curry Adult HPI General Chief complaint: Cough Stated complaint: coughing, chills, chest hurting while coughin Time Seen by Provider: 12/06/24 08:20 Mode of Arrival: Ambulatory Source of Information: Patient Description of Symptoms (Recalled from ER Triage Doc. by RN): pt presents to ED with c/o cough, vomitting, chills, pressure on chest with coughing. symptoms began thursday night and have gotten worse. History of Present Illness HPI narrative: Lilibeth Floyd is a 54-year-old female with a history of COPD not on oxygen at baseline, heart murmur, schizophrenia, tobacco use who presents to the emergency department for complaints of cough, midsternal chest pain only with coughing. Patient states that symptoms began 2 days ago but have progressively worsened. She states that she is unable to stop coughing. She reports that she had significant nasal congestion and rhinorrhea when she woke up this morning. She states that she is having midsternal sharp chest pain only with coughing. She denies any significant shortness of breath. She reports temperature as high as 100 ?F. She states that multiple members of her family have been ill recently and believes she may have caught what they had. Related Data Previous Rx's ?Medication ?Instructions ?Recorded nitrofurantoin macrocrystal 100 mg 100 mg PO BID 5 days #10 caps 10/10/24 capsule ondansetron 4 mg disintegrating 4 mg PO Q6H PRN nausea and 10/10/24 tablet vomiting #16 tabs Allergies Allergy/AdvReac Type Severity Reaction Status Date / Time nitrofurantoin (From AdvReac Hives Verified 10/14/24 12:05 Macrobid) [facility] Disclaimer: The information contained in this section may have been updated after the patient was seen, as this information can be updated by other users. 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 Nasal valve collapse I think she is noticed over the last few years that the cartilage of the dorsum is not as resilient as it once was. Nasal dorsal issue seems to be minor in comparison with her airflow problems. Ovarian cancer Schizophrenia COPD (chronic obstructive pulmonary disease) Syncope Palpitations Chest pain Surgical History History of eye surgery H/O wisdom tooth extraction H/O: hysterectomy Family History Other No significant family history Social History Smoking Status: Current every day smoker smoking status stop date: 05/29/24 quit status: considering quitting second hand exposure: Yes alcohol intake: never substance use type: marijuana current occupational status: disabled Travel in the last 8 weeks?: None housing: house number of children: 3 caffeine: Yes Have you lived/traveled outside [place] in past 30 days?: No Contact w/someone who lives/traveled outside [place] past 30 days?: No Exposure to someone with infectious disease in past 14 days?: No Do you have a fever (greater than 100.4 F or 38 C)?: No Have you tested positive for COVID-19?: No Exposed to someone with COVID-19 in past 14 days?: No Do you have a sore throat?: No Do you have a cough?: Yes Do you have any weakness?: No Do you have any diarrhea?: No Are you experiencing any unusual bleeding?: No Do you have any muscle aches/pain?: No Do you have any abdominal pain?: No Are you experiencing loss of taste or smell?: No Other 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 Have you received the Flu Vaccine for this season: No Have you received the Pneumonia Vaccine: No ROS Obtained: Yes Systems reviewed as appropriate & no additional complaints except as documented Physical Exam General General appearance: alert and anxious Comment: Ill but non-toxic appearing, active productive cough Head Head exam: atraumatic Eye Eye exam: Present normal appearance ENT ENT exam: Present normal external ear exam Neck Neck exam: Present full ROM Chest Chest inspection: Present symmetric chest wall rise Respiratory Respiratory exam: Present normal lung sounds bilaterally and other (Active productive cough); Absent respiratory distress, wheezes or stridor Cardiovascular Cardiovascular exam: Present regular rate and normal rhythm Abdominal Exam Abdominal exam: Present soft; Absent distention Extremities Exam Extremities exam: Present normal inspection Back Exam Back exam: Present normal inspection Neurological Exam Neurological exam: Present alert and oriented X3 Psychiatric Psychiatric exam: Present normal affect Skin Skin exam: Present warm and dry Medical Decision Making Medical Records Screening: Per USPSTF and CDC recommendations, given the prevalence of disease in our region, it is our hospital?s policy to screen for HIV and viral Hepatitis for all patients aged 18 and over and those with ongoing risk factors. Dariel Inquiry Pt receiving controlled substance: No Vital Signs: 12/06/24 08:15 12/06/24 08:16 12/06/24 09:35 Temperature 98.3 F Temperature Source Oral Pulse Rate 79 60 Pulse Rate [Left Radial] 87 Respiratory Rate 16 Blood Pressure 128/107 H 110/68 Blood Pressure [Right Arm] 128/107 H Blood Pressure Mean [Right Arm] 114 02 Sat by Pulse Oximetry 98 98 97 Oxygen Delivery Method Room Air Room Air Room Air 12/06/24 09:58 Temperature 98.3 F Temperature Source Pulse Rate 60 Pulse Rate [Left Radial] Respiratory Rate 16 Blood Pressure 110/68 Blood Pressure [Right Arm] Blood Pressure Mean [Right Arm] 02 Sat by Pulse Oximetry Oxygen Delivery Method Lab Data Lab Results 12/06/24 08:19: SARS-CoV-2 (PCR) Not detected, Influenza A Untype (PCR) Not detected, Influenza Type B (PCR) Not detected 12/06/24 08:45: WBC 7.5, RBC 4.76, Hgb 14.5, Hct 42.6, MCV 89.5, MCH 30.5, MCHC 34.0, RDW 13.2, Plt Count 197, MPV 11.4 H, Neut % (Auto) 60.3, Lymph % (Auto) 30.3, [place] % (Auto) 6.7, Eos % (Auto) 2.0, Baso % (Auto) 0.4, Neut # (Auto) 4.5, Lymph # (Auto) 2.3, [place] # (Auto) 0.5, Eos # (Auto) 0.2, Baso # (Auto) 0.0, Sodium 140, Potassium 4.5, Chloride 104, Carbon Dioxide 27, Anion Gap 13.5, BUN 11, Creatinine 0.80, Estimated Creat Clear 76, Estimated GFR 75, Est GFR ( Amer) 91, Glucose 89, Calcium 9.5, Troponin I < 0.01, HCV Ab ARNOLDO w/Rflx PCR Qn Negative, HIV Ag/Ab Combo Qual Negative 12/06/24 08:45 12/06/24 08:45 Orders (Tests/Meds): ED MEDICATIONS Discontinued Medications Generic Name Dose Route Start Last Admin Trade Name Freq PRN Reason Stop Dose Admin Albuterol Sulfate 2 puff 12/06/24 08:26 12/06/24 08:59 Albuterol-Hfa 90mcg/Puff Inhaler 8gm IH 01/05/25 08:25 2 puff Q4HP PRN Administration Shortness Of Breath Dexamethasone Sodium Phosphate 10 mg 12/06/24 08:30 12/06/24 08:58 Dexamethasone 4mg/Ml 5ml Mdv IV 12/06/24 08:31 10 mg ONCE ONE Administration Miscellaneous 1 unit 12/06/24 08:26 12/06/24 08:59 Aerochamber/Optihaler MC 12/06/24 08:27 1 unit ONCE ONE Administration Ondansetron HCl 4 mg 12/06/24 08:36 12/06/24 08:58 Ondansetron 4mg/2ml Vial IV 12/06/24 08:37 4 mg ONCE ONE Administration ORDERS Category Date Time Status CXR 2 view (NOT portable) [XR chest 2V] Stat Exams 12/06/24 08:26 Completed BMP [Basic Metabolic Panel] Stat Lab 12/06/24 08:45 Completed CBC w/Auto Diff [Complete Blood Count Auto Diff] Stat Lab 12/06/24 08:45 Completed HIV Combo Stat Lab 12/06/24 08:45 Completed Hepatitis C Ab Qual. W/ RFX Stat Lab 12/06/24 08:45 Completed Rapid PCR Covid and Flu A/B Stat Lab 12/06/24 08:19 Completed Troponin I Stat Lab 12/06/24 08:45 Completed ECG Data Tracing #1: I reviewed this ECG and interpreted as documented below: Normal sinus rhythm. No ST elevation or depression. QTc normal at 413 Medical Decision Narrative: Lilibeth Floyd is a 54-year-old female with a history of COPD not on oxygen at baseline, heart murmur, schizophrenia, tobacco use who presents to the emergency department for complaints of cough, midsternal chest pain only with coughing. Patient states that symptoms began 2 days ago but have progressively worsened. She states that she is unable to stop coughing. She reports that she had significant nasal congestion and rhinorrhea when she woke up this morning. She states that she is having midsternal sharp chest pain only with coughing. She denies any significant shortness of breath. She reports temperature as high as 100 ?F. She states that multiple members of her family have been ill recently and believes she may have caught what they had. On arrival, patient's blood pressure 128/107, heart rate within normal limits, afebrile, oxygen saturation 98% on room air. Physical exam, stated above, revealed an ill but nontoxic-appearing female in no distress. She has an active productive cough. Breath sounds are otherwise clear with no wheezing or rhonchi. She is moving a good amount of air. No murmurs or rubs are appreciated. Differential diagnosis includes, but is not limited to: Viral respiratory illness, bronchitis, COPD exacerbation, pneumonia, ACS, pericarditis, among others. The most morbid conditions were considered and workup was based on these. Initial workup in the emergency department included: Rapid COVID and flu testing, two-view chest x-ray, CBC with differential, EKG, CMP, troponin. Patient states that she had previously been prescribed an albuterol inhaler but cannot afford it and does not have 1 currently. I do feel that she is likely having bronchospasms and will give albuterol inhaler here in the emergency department as well as 10 mg of IV dexamethasone in the setting of possible COPD exacerbation. EKG without evidence of ischemia. See interpretation above Chest x-ray interpreted by me personally. No focal consolidation, no pneumothorax, no widened mediastinum, no enlargement of the cardiac silhouette. Unremarkable chest x-ray. See radiology report for details. Labwork shows no leukocytosis and unremarkable CBC, CMP, and troponin less than 0.01. Negative COVID and flu testing. On reassessment, patient reports improvement with steroids and albuterol inhaler. I did offer to send prescription for azithromycin for bronchitis/COPD exacerbation, however patient states that she would be unable to afford it. She is feeling better after these medications. I do feel that she is appropriate for discharge at this time as her symptomatology is most consistent with bronchitis. Return precautions were given. All questions were answered. She demonstrated understanding and was in agreement this plan. She was then discharged from the emergency department in stable condition. Critical Care Critical Care Time Critical Care Time: No
[2024-12-06 08:30] LABS: Coronavirus 19, PCR Not Detected (NotDetected); Influenza A, PCR Not Detected (NotDetected); Influenza B, PCR Not Detected (NotDetected)
--- NOTE | 2024-12-06 08:35 | ECG_ITS ---
APPROVED REPORT Exam: Resting ECG HR:70 bpm ECG Measurements Heart Rate 70 AXES WI 125 P 70 QRSd 79 QRS 77 QT 393 T 65 QTc 413 Conclusion SINUS RHYTHM WITH SINUS ARRHYTHMIA NORMAL ECG UNCONFIRMED REPORT Electronically signed by : FREDIS STANTON, 12/08/2024 06:47:23
[2024-12-06 08:53] LABS: Hematocrit 42.6 % (37.0-47.0); Hemoglobin 14.5 g/dL (12.2-16.2); Immature Granulocytes % 0.3 %; Mean Corpuscular HGB Conc 34.0 g/dL (31.8-35.4); Mean Corpuscular Hemoglobin 30.5 pg (27.0-31.2); Mean Corpuscular Volume 89.5 fl (81-99); Nucleated Red Blood Cells % 0 %; Platelet Count 197 K/mm3 (142-424); Red Blood Count 4.76 M/mm3 (4.20-5.40); Red Cell Distribution Width-SD 43.2 fL; White Blood Count 7.5 K/mm3 (4.8-10.8)
[2024-12-06] MEDS: DEXAMETHASONE 4MG/ML 5ML MDV 10 MG IV (08:58)
[2024-12-06] MEDS: ONDANSETRON 4MG/2ML VIAL 4 MG IV (08:58)
[2024-12-06] MEDS: AEROCHAMBER/OPTIHALER 1 UNIT MC (08:59)
[2024-12-06] MEDS: ALBUTEROL-HFA 90MCG/PUFF INHALER 8GM 2 PUFF IH (08:59)
[2024-12-06 09:00] LABS: Chloride 104 mmol/L (98-107); Potassium 4.5 mmoL/L (3.5-5.1); Sodium 140 mmol/L (136-145)
[2024-12-06 09:03] LABS: Blood Urea Nitrogen 11 mg/dl (7-17); Creatinine Clearance Estimated 76 mL/min (50-200); Creatinine,Serum 0.80 mg/dl (0.52-1.04); Estimated Glomerular Filt Rate 75 ml/min (>60); GFR (African American) 91 ML/MIN (>60)
[2024-12-06 09:04] LABS: Anion Gap 13.5 mEq/L (5-15); Calcium 9.5 mg/dl (8.4-10.2); Carbon Dioxide 27 mmol/L (22.0-30.0); Glucose 89 mg/dl (74-100)
[2024-12-06 09:18] LABS: Troponin I < 0.01 ng/ml (0.00-0.034)
[2024-12-06 09:35] VITALS: BP 110/68; PULSE 60; O2SAT 97
--- NOTE | 2024-12-06 09:40 | PC.NURSE ---
DR ALVA AT BEDSIDE
[2024-12-06 09:58] VITALS: BP 110/68; PULSE 60; RESP 16; TEMP 36.8; O2SAT 97
[2024-12-06 10:40] LABS: Hepatitis C Ab Qual. W/ RFX NEGATIVE (Negative)
== END 2024-12-06 09:59 | disposition home or self-care (01) ==
PROVIDERS: Emergency Provider Student in an Organized Health Care Education/Training Program
DX: J20.9 Acute bronchitis, unspecified (principal); R07.1 Chest pain on breathing; F17.210 Nicotine dependence, cigarettes, uncomplicated
CPT/HCPCS: 71046; 80048; 84484; 85025; 86803; 87389; 87636; 93005; 96374; 96375; 99284; J1100; J2405